=== PATIENT | male | born 1970 | race Caucasian/White ===

== ENCOUNTER 2021-05-25 20:11 | Emergency (ER) | payer OTHER, SELFPAY ==
--- NOTE | 2021-05-25 20:12 | CTR_ITS ---
PROCEDURE INFORMATION: Exam: CT Head Without Contrast Exam date and time: 05/25/2021 8:12 PM Age: 50 years old Clinical indication: Injury or trauma; Blunt trauma (contusions or hematomas); Syncope and collapse; Injury details: Syncope, fall, posterior head lac TECHNIQUE: Imaging protocol: Computed tomography of the head without contrast. Radiation optimization: All CT scans at this facility use at least one of these dose optimization techniques: automated exposure control; mA and/or kV adjustment per patient size (includes targeted exams where dose is matched to clinical indication); or iterative reconstruction. COMPARISON: No relevant prior studies available. RADIATION DOSE METRICS: Total DLP (mGy-cm): 966.15 FINDINGS: Brain: Normal. No hemorrhage. Unremarkable white matter. No mass effect. Cerebral ventricles: No ventriculomegaly. Paranasal sinuses: Mucosal thickening in the ethmoid sinuses. Mastoid air cells: Visualized mastoid air cells are well aerated. Bones/joints: Unremarkable. No acute fracture. Soft tissues: Left occipital scalp swelling. CT/CT head wo con* [id number] IMPRESSION: No acute intracranial injury. Radiation Dose CTDIVOL = (mGy): DLP = 966.15 (mGy-cm)
--- NOTE | 2021-05-25 20:12 | ECG_ITS ---
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 Measurements Intervals [place] Rate: 79 P: 56 CA: 184 QRS: 76 QRSD: 79 T: 65 QT: 352 QTc: 405 Interpretive Statements SINUS RHYTHM POSSIBLE LEFT ATRIAL ENLARGEMENT [-0.1mV P-WAVE IN V1/V2] SEPTAL MYOCARDIAL INFARCTION , OF INDETERMINATE AGE [40+ ms Q WAVE IN V1/V2] No previous ECG available for comparison Electronically Signed On 05-26-2021 4:25:07 BLOCKMAN by Gallo Christina M.D. [id number] f
[2021-05-25 20:22] VITALS: BP 114/67; PULSE 81; RESP 16; TEMP 36.6; O2SAT 98; BMI 31.5
[2021-05-25 20:51] VITALS: BP 143/78; PULSE 80; RESP 14; O2SAT 99
--- NOTE | 2021-05-25 20:53 | XRR_ITS ---
PROCEDURE INFORMATION: Exam: XR Chest Exam date and time: 05/25/2021 8:53 PM Age: 50 years old Clinical indication: Pain; Left-sided; Additional info: L posterior ribs pain TECHNIQUE: Imaging protocol: XR of the chest. Views: 1 view. COMPARISON: No relevant prior studies available. FINDINGS: Lungs: Unremarkable. No consolidation. Pleural spaces: Unremarkable. No pleural effusion. No pneumothorax. Heart/Mediastinum: Unremarkable. No cardiomegaly. Bones/joints: Unremarkable. XR/XR chest 1V portable [id number] IMPRESSION: No acute findings. Radiation Dose CTDIVOL = (mGy): DLP = (mGy-cm)
[2021-05-25 20:59] VITALS: BP 155/90; PULSE 90; RESP 17; O2SAT 100
[2021-05-25] MEDS: sodium chloride 0.9% 1,000 ML 999 ML IV ×2 (21:05→22:05)
[2021-05-25 21:06] LABS: Basophils # 0.1 10^3/uL (0.0-0.1); Basophils % 0.9 %; Eosinophils # 0.3 10^3/uL (0.0-0.8); Eosinophils % 2.4 %; Hemoglobin 12.5 g/dL (11.7-16.6); Lymphocytes # 2.7 10^3/uL (0.8-4.8); Lymphocytes % 21.9 %; Mean Corpuscular HGB Conc 30.5 g/dL (30.0-36.0); Mean Corpuscular Hemoglobin 23.5 pg (28.0-34.0); Mean Corpuscular Volume 77.1 fl (80-94); Mean Platelet Volume 11.8 fL (7.4-10.4); Monocytes # 0.8 10^3/uL (0.2-0.9); Monocytes % 6.8 %; Neutrophils # 8.27 10^3/uL (1.8-7.7); Neutrophils % 67.3 %; Nucleated Red Blood Cells % 0 %; Platelet Count 326 10^3/cmm (130-400); Red Blood Count 5.32 10^6/uL (4.1-5.3); Red Cell Distribution Width 16.2 % (12.1-15.1); White Blood Count 12.3 10^3/uL (4.0-10.0)
[2021-05-25] MEDS: acetaminophen 500 mg Tablet 1000 MG PO (21:15)
--- NOTE | 2021-05-25 21:15 | W.ED.GENADLT ---
HPI - General Adult General: Chief complaint: Neuro Symptoms/Deficit Stated complaint: Passed Out\ Fell Head Injury Time Seen by Provider: 05/25/21 20:47 History of Present Illness: HPI narrative: HPI: [50]yo patient w/ hx rectal bleeding chronic BIBA after an episode of syncope while outside. Patient was outside when he felt light-headed, nauseous and passed out. The incident was witnessed by the patient?s friends who denied LOC today. Patient could not recall the incident but denies any post-ictal confusion, tongue biting or bladder/bowel incontinence. Patient denies any prior hx of syncope in the past. No associated symptoms of chest pain, shortness of breath, palpitations or focal weakness right before the incident. No family hx of sudden cardiac or unexplained . Patient has had rectal bleeding in the last few days. Onset: [1] hr ago Duration: ongoing Location: home Severity: mild Review of Systems Narrative: Constitutional: No fever, no chills. HEENT: No vision changes CV: No chest pain, no palpitations PULM: No productive cough, no dyspnea. GI: No abdominal pain, no N/V/D. : No Dysuria MSKEL: No muscle pain SKIN: No new rashes, no lesions. NEURO: No headache, no focal weakness. +syncope x 1 episode HEME: No visible bruises PSYCH: Normal mood BACK: +L upper thoracic back pain Physical Exam Narrative: EXAM NARRATIVE: Head: +two scalp superficial lacerations without any signs of hematoma or active bleeding Eyes: PERRL, conjunctiva without injection, eyes tracking ENT: Mucous membrane moist NECK: Supple without lymphadenopathy LUNGS: LCTAB, no decreased breath sounds CV: RRR ABDOMEN: Soft, nontender in all quadrants, no guarding or rebound tenderness, no CVA or flank tenderness bilaterally EXTREMITY: Normal ROM SKIN: +two superficial linear scalp lacerations measuring 1cm each NEURO: Mental status: A/Ox3 CN II-XII tested and intact. Sensation intact to sharp/dull differentiation in all extremities. Motor: Normal tone and bulk. No abnormal movements appreciated. No pronator drift. Strength tested and 5/5 in bilateral wrist flexion/extension, elbow flexion/extension, shoulder abduction, straight leg raise, knee flexion/extension, ankle dorsiflexion/plantarflexion. Patient ambulates with a steady gait. Coordination: Finger to nose and heel to kincaid testing intact bilaterally. PSYCH: Cooperative mood and affect BACK: +midscapular T9 midline tenderness to palpation Procedures Laceration Laceration 1: Site: scalp Side (If applicable): left Size (cm): 1 Description: linear Depth: simple, single layer Skin layer closed with: other (dermabond) Laceration 2: Site: scalp Side (If applicable): left Size (cm): 1 Description: linear Depth: simple, single layer Size (cm): other (dermabond) Course Vital Signs: Vital signs: Vital Signs Temperature 98 F 05/25/21 20:22 Pulse Rate 80 05/26/21 00:08 Respiratory Rate 20 H 05/26/21 00:08 Blood Pressure 134/76 05/26/21 00:08 Pulse Oximetry 98 05/26/21 00:08 MDM - General Adult MDM Narrative: Medical decision making narrative: [50]yo patient w/ hx of chronic rectal bleeding presenting to the ED with Syncope. No association with chest pain, dyspnea, palpitations, or focal neurological deficits. HDS Neuro intact. Fingerstick wnl. Given history, exam and workup, presentation not consistent with seizures given a short time course, no postictal state, no seizure activity. Low suspicion for acute neurologic catastrophes to include ICH given lack of trauma, risk factors for bleeding diathesis, or neurogenic causes of syncope. Low suspicion for vascular catastrophes to include PE, thoracic aortic dissection, AAA rupture. Presentation not consistent with acute life threatening arrhythmia, structural heart disease, electrical conduction abnormalities, or ACS. He has 2 superficial scalp laceration that was closed with Dermabond after extensive irrigation. S/p Tdap for superficial laceration. CT brain did not show any signs of any acute brain bleed or trauma. Patient has also left thoracic posterior back pain. No decreased breath sound on the affected side. Chest x-ray did not show any signs of posterior fracture. Workup: EKG, fingerstick, telemetry, CBC, BMP, troponin x 2 Intervention: Serial reevaluation, IVF x 3L, telemetry, PO challenge Findings: EKG: No e/o STEMI/ or heart blocks. No evidence of Brugada?s sign, delta wave, epsilon wave, significantly prolonged QTc, HOCM or malignant arrhythmia. Hemoglobin of 12.3. Rectal exam is negative for any melena or hematochezia. Creatinine of 1.3 today. On reassessment, patient's tells me that patient has been drinking soda water for the last few days. He is refusing to drink any water. His is concerned that patient may have been feeling dehydrated. [10:26] On reassessment, patient denies any syncope or near syncope episodes in the ER. Telemetry without any dysrhythmia. Patient has been able to tolerate PO and ambulate in the ER without issues. Given age, limited to no comorbidities, no family hx of SCD, history more consistent with situational/reflex syncope vs orthostatic/decreased fluid intake, patient is unlikely to experience sudden cardiac decompensation at this time and will NOT benefit from inpatient observation/telemetry at this time. Although the incidence of paroxysmal ventricular tachycardia/VF is very unlikely, I instructed the patient to follow up with a PCP and a Electrophysiology Nurse Practitioner for further evaluation of syncope should the patient need it. He received 3 L fluid with significant improvement in symptoms. Patient tells me that he feels better. Patient has been able to tolerate p.o. in the emergency room without any difficulty. Patient ambulated without feeling any lightheadedness. I have given patient close follow-up with PCP for further evaluation of the left thoracic posterior back pain that still can be an occult fracture that was missed initially on x-ray. I have given patient follow up with our case management manager to be seen by Dr. Wolff for outpatient colonoscopy as last colonoscopy was over 2 years ago. Patient aware of a call from our case management manager to schedule for appointment(s) and verbalizes understanding of the importance of following up. Doubt ACS/PE or other emergent causes of syncope. No suspicion for aortic dissection given no widened mediastinum, 2+ upper extremity pulses, or tearing pain. No suspicion for PE given no pleuritic chest pain, recent immobilization or surgery hemoptysis, or other VTE risk factors. EKG is non-ischemic. XR normal. Rx tylenol PRN back pain Disposition: Discharge. Patient is at baseline at this time. Return precautions expressed and understood in person. Advised follow up with a primary care provider or clinic physician in the next 24-48 hours. Given return instructions for any new or concerning symptoms including chest pain, focal neurological deficits, dyspnea, or any new or concerning findings. Lab Data: Labs: Lab Results 05/25/21 05/25/2121 20:40 20:40 20:40 WBC 12.3 10^3/uL H 10 ^3/uL (4.0-10.0) RBC 5.32 10^6/uL H 10 ^6/uL (4.1-5.3) Hgb 12.5 g/dL g/dL (11.7-16.6) Hct 41.0 % L % (42.0-52.0) MCV 77.1 fl L fl (80-94) MCH 23.5 pg L pg (28.0-34.0) MCHC 30.5 g/dL g/dL (30.0-36.0) RDW 16.2 % H % (12.1-15.1) Plt Count 326 10^3/cmm 10^3 /cmm (130-400) MPV 11.8 fL H fL (7.4-10.4) Neut % (Auto) 67.3 % % Lymph % (Auto) 21.9 % % [place] % (Auto) 6.8 % % Eos % (Auto) 2.4 % % Baso % (Auto) 0.9 % % Neut # (Auto) 8.27 10^3/uL H 10 ^3/uL (1.8-7.7) Lymph # (Auto) 2.7 10^3/uL 10^3/ uL (0.8-4.8) [place] # (Auto) 0.8 10^3/uL 10^3/ uL (0.2-0.9) Eos # (Auto) 0.3 10^3/uL 10^3/ uL (0.0-0.8) Baso # (Auto) 0.1 10^3/uL 10^3/ uL (0.0-0.1) Nucleated RBC % (a uto) 0 % % Nucleated RBCs # 0.0 /100WBC /100W BC Sodium 136 mmol/L mmol/L (136-145) Potassium 3.9 mmol/L mmol/L (3.5-5.1) Chloride 99 mmol/L mmol/L (98-107) Carbon Dioxide 20 mmol/L L mmol/ L (22-29) Anion Gap 20.9 H (5-19) BUN 9 mg/dL mg/dL (6-20) Creatinine 1.3 mg/dL H mg/dL (0.7-1.2) GFR Calculation 58.7 mL/min L mL/ min (90-130) Glucose 166 mg/dL H mg/dL (65-115) Calculated Osmolal ity 284 mOsm/kg L mOs m/kg (285-295) Calcium 8.8 mg/dL mg/dL (8.5-10.5) Total Bilirubin 0.4 mg/dL mg/dL (0.15-1.2) AST 20 U/L U/L (0-40) ALT 10 U/L U/L (0-41) Alkaline Phosphata se 88 IU/L IU/L (40-130) Troponin T Baselin e 10 ng/L ng/L (0-15) Troponin T 120 Min [place] Troponin T Total Protein 6.7 g/dL g/dL (6.6-8.7) Albumin 4.2 g/dL g/dL (3.5-5.2) Globulin 2.5 g/dL g/dL (1.3-4.6) 05/25/21 22:55 WBC RBC Hgb Hct MCV MCH MCHC RDW Plt Count MPV Neut % (Auto) Lymph % (Auto) [place] % (Auto) Eos % (Auto) Baso % (Auto) Neut # (Auto) Lymph # (Auto) [place] # (Auto) Eos # (Auto) Baso # (Auto) Nucleated RBC % (a uto) Nucleated RBCs # Sodium Potassium Chloride Carbon Dioxide Anion Gap BUN Creatinine GFR Calculation Glucose Calculated Osmolal ity Calcium Total Bilirubin AST ALT Alkaline Phosphata se Troponin T Baselin e Troponin T 120 Min [place] 9.30 ng/L ng/L (0-15) Delta Troponin T -0.70 ABS# L ABS# (0-10) Total Protein Albumin Globulin Imaging Data^: Other Imaging: Radiologist's impression: Arlin Worley 50 M 1970 [address] [id number] ReportSigned Patient: Arlin WorleyUnit #: [id number]: 1970Acct#:[id number]/Sex: 50 / MADM Date: 05/25/21Loc: ERRoom/Bed:Attending Dr: Ordering Provider/Ordering MD: Ramírez Hernández MD Date of Service: 05/25/21 Procedure(s): XR chest 1V portable [id number] Accession Number(s): [id number] Report Number: [id number] PROCEDURE INFORMATION: Exam: XR Chest Exam date and time: 05/25/2021 8:53 PM Age: 50 years old Clinical indication: Pain; Left-sided; Additional info: L posterior ribs pain TECHNIQUE: Imaging protocol: XR of the chest. Views: 1 view. COMPARISON: No relevant prior studies available. FINDINGS: Lungs: Unremarkable. No consolidation. Pleural spaces: Unremarkable. No pleural effusion. No pneumothorax. Heart/Mediastinum: Unremarkable. No cardiomegaly. Bones/joints: Unremarkable. XR/XR chest 1V portable [id number] IMPRESSION: No acute findings. Radiation Dose CTDIVOL = (mGy): DLP = (mGy-cm) Dictated By:Heriberto Alcaraz MDSigned By:Heriberto Alcaraz MDSigned Date/Time:05/25/212125DD/ [address] [id number] Scan ReportSigned Patient: Arlin Worley #: [id number]: 1970Acct#:[id number]/Sex: 50 / MADM Date: 05/25/21Loc: ERRoom/Bed:Attending Dr: Ordering Provider/Ordering MD: Maria Isabel Padron MD Date of Service: 05/25/21 Procedure(s): CT head wo con* [id number] Accession Number(s): [id number] Report Number: [id number] PROCEDURE INFORMATION: Exam: CT Head Without Contrast Exam date and time: 05/25/2021 8:12 PM Age: 50 years old Clinical indication: Injury or trauma; Blunt trauma (contusions or hematomas); Syncope and collapse; Injury details: Syncope, fall, posterior head lac TECHNIQUE: Imaging protocol: Computed tomography of the head without contrast. Radiation optimization: All CT scans at this facility use at least one of these dose optimization techniques: automated exposure control; mA and/or kV adjustment per patient size (includes targeted exams where dose is matched to clinical indication); or iterative reconstruction. COMPARISON: No relevant prior studies available. RADIATION DOSE METRICS: Total DLP (mGy-cm): 966.15 FINDINGS: Brain: Normal. No hemorrhage. Unremarkable white matter. No mass effect. Cerebral ventricles: No ventriculomegaly. Paranasal sinuses: Mucosal thickening in the ethmoid sinuses. Mastoid air cells: Visualized mastoid air cells are well aerated. Bones/joints: Unremarkable. No acute fracture. Soft tissues: Left occipital scalp swelling. CT/CT head wo con* [id number] IMPRESSION: No acute intracranial injury. Radiation Dose CTDIVOL = (mGy): DLP = 966.15 (mGy-cm) Dictated By:Heriberto Alcaraz MDSigned By:Heriberto Alcaraz MDSigned Date/Time:05/25/21D/ 11 Discharge Plan Discharge Patient Disposition: Home Clinical Impression: Syncope and collapse, Concussion, Laceration, Back pain Condition: Stable Prescriptions: New lidocaine 5 % adhesive patch,medicated 1 patch topical DAILY PRN (Reason: pain) 10 Days Qty: 10 RF: 0 orphenadrine citrate 100 mg tablet extended release 100 mg PO BID PRN (Reason: pain) 10 Days Qty: 20 RF: 0 Biofreeze (menthol) 5 % gel 1 ea topical BID PRN (Reason: pain) 10 Days Qty: 1 RF: 0 No Action hydrocodone-acetaminophen 5-325 mg tablet 1 tab PO Q4H PRN (Reason: pain) Qty: 18 RF: 0 Discharge Orders: Discharge ED (Routine); Ordered 05/25/21 Ordered By: Ramírez Hernández Discharge Diet: Advance as tolerated Patient Instructions: Syncope (ED), Concussion (ED) Activity Restrictions/Additional Instructions: Your suture(s) need to be removed in 10 to 14 days. Follow-up with your primary care provider and GI doctor for further evaluation of your rectal bleeding. Will refer you to Dr. Goodwin for outpatient colonoscopy. Back to the emergency room having any worsening bleeding, abdominal pain, nausea/vomiting, fever/chills, any new concerning planes. Coding Level of Care Code ED Animal Therapist for Janet Rubio
[2021-05-25 21:30] VITALS: BP 148/94; PULSE 95; RESP 19; O2SAT 98
[2021-05-25 21:38] LABS: Alanine Aminotransferase 10 U/L (0-41); Albumin Level 4.2 g/dL (3.5-5.2); Alkaline Phosphatase 88 IU/L (40-130); Anion Gap 20.9 (5-19); Aspartate Amino Transferase 20 U/L (0-40); Blood Urea Nitrogen 9 mg/dL (6-20); Calcium 8.8 mg/dL (8.5-10.5); Carbon Dioxide 20 mmol/L (22-29); Chloride 99 mmol/L (98-107); Globulin 2.5 g/dL (1.3-4.6); Glomerular Filtration Rate 58.7 mL/min (90-130); Glucose 166 mg/dL (65-115); Osmolality Calculated 284 mOsm/kg (285-295); Potassium 3.9 mmol/L (3.5-5.1); Sodium 136 mmol/L (136-145); Total Bilirubin 0.4 mg/dL (0.15-1.2); Total Protein 6.7 g/dL (6.6-8.7)
[2021-05-25 21:40] LABS: Troponin(5th) Baseline 10 ng/L (0-15)
[2021-05-25 21:46] LABS: Creatinine Clr Calc Pharmacy 81.3906
[2021-05-25 22:00] VITALS: BP 115/80; PULSE 79; RESP 18; O2SAT 99
[2021-05-25] MEDS: tetanus-dipt-pertussis 0.5 mL SDV IM (22:26)
--- NOTE | 2021-05-25 22:53 | ECG_ITS ---
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 Measurements Intervals [place] Rate: 85 P: 46 FL: 184 QRS: 64 QRSD: 88 T: -4 QT: 334 QTc: 399 Interpretive Statements SINUS RHYTHM ABNORMAL QRS-T ANGLE [QRS-T AXIS DIFFERENCE > 60] Compared to ECG 05/25/2021 20:42:16 Myocardial infarct finding no longer present Electronically Signed On 05-26-2021 4:25:26 HOOKER INSPECTOR by Gallo Christina M.D. [id number] f
[2021-05-25 23:00] VITALS: BP 134/76; PULSE 80; RESP 20; O2SAT 98
[2021-05-26 00:08] VITALS: BP 134/76; PULSE 80; RESP 20; O2SAT 98
--- NOTE | 2021-05-31 05:53 | DCPLANNER ---
Addendum entered by Torri Boyle 06/01/21 07:31: national facilities manager was contacted by general surgery and was informed that when clinic called patient to schedule a follow up appointment that patient stated that he wanted to wait and see his primary care physician before he was seen at general surgery. Original Note: national facilities manager had message to schedule a follow up appointment for patient with Dr. Goodwin at [facility] for outpatient colonoscopy. national facilities manager emailed patients information to both [place] and Yulisa to [facility] General Surgery / ENT clinic. Patients information will be printed and reviewed. Clinic will call patient with appointment information.
== END 2021-05-25 23:30 | disposition home or self-care (01) ==
PROVIDERS: Emergency Medicine; Emergency Provider Emergency Medicine
DX: R55 Syncope and collapse (principal); S06.0X0A Concussion without loss of consciousness, initial encounter; W18.30XA Fall on same level, unspecified, initial encounter; S01.01XA Laceration without foreign body of scalp, initial encounter; M54.6 Pain in thoracic spine
CPT/HCPCS: 12001; 70450; 71045; 80053; 84484; 85025; 90471; 90715; 93005; 96360; 96361; 99284; J7030

== ENCOUNTER 2021-05-26 11:17 | Emergency (ER) | payer OTHER, SELFPAY ==
[2021-05-26 11:18] VITALS: BP 175/87; PULSE 75; RESP 15; TEMP 36.7; O2SAT 100; BMI 31.5
--- NOTE | 2021-05-26 11:20 | CTR_ITS ---
PROCEDURE INFORMATION: Exam: CT Chest Without Contrast; Diagnostic Exam date and time: 05/26/2021 11:20 AM Age: 50 years old Clinical indication: Pain; Radiating; Additional info: Eval for L posterior broken bones TECHNIQUE: Imaging protocol: Diagnostic computed tomography of the chest without contrast. Radiation optimization: All CT scans at this facility use at least one of these dose optimization techniques: automated exposure control; mA and/or kV adjustment per patient size (includes targeted exams where dose is matched to clinical indication); or iterative reconstruction. COMPARISON: CR (CHEST, ) 05/25/2021 8:58 PM RADIATION DOSE METRICS: Total DLP (mGy-cm): 1002.14 FINDINGS: Lungs: Unremarkable. No consolidation. No masses. Pleural spaces: Unremarkable. No pneumothorax. No pleural effusion. Heart: Unremarkable. No cardiomegaly. No pericardial effusion. Aorta: Unremarkable. No aortic aneurysm. Lymph nodes: Unremarkable. No enlarged lymph nodes. Bones/joints: There is a nondisplaced linear fracture through the posterolateral aspect of the left 9th rib. There is also compression fracture of the superior endplate of T12 which may be acute. There is mild loss of vertebral height. Degenerative changes are present in the spine with scattered sclerosis and osteophytes. Soft tissues: Unremarkable. CT/CT chest con [id number] IMPRESSION: 1. Nondisplaced linear fracture of the left 9th rib. 2. Compression fracture with mild loss of vertebral height at T12. This is probably acute. 3. No evidence of visceral trauma. Radiation Dose CTDIVOL = (mGy): DLP = 1002.14 (mGy-cm)
--- NOTE | 2021-05-26 11:31 | ED_ITS ---
HPI - General Adult General: Chief complaint: Back Pain/Injury Stated complaint: BACK PAIN, FALL Time Seen by Provider: 05/26/21 11:19 History of Present Illness: HPI narrative: Patient is a 50-year-old male who fell backwards yesterday and was evaluated in the emergency room for syncope who he presents the emergency room for worsening left thoracic back pain after she was unable to fill his medication yesterday. Patient describes a cramping palpable charley horse like pain in the back that is causing him significant distress. Patient has no shortness of breath, cough, abdominal pain, nausea/vomiting, chest pain or any more episodes of lightheadedness/syncope. Patient has an x-ray that was done yesterday negative for any acute rib fractures. Onset: 1 day ago Duration:1 day Location:home Severity:moderate Review of Systems Narrative: Constitutional: No fever, no chills. HEENT: No vision changes CV: No chest pain, no palpitations PULM: no cough, no dyspnea. GI: No abdominal pain, no N/V/D. : No dysuria MSKEL: No muscle pain SKIN: No new rashes, no lesions. NEURO: No headache, no focal weakness. HEME: No visible bruises PSYCH: Normal mood BACK: +L thoracic back pain Physical Exam Narrative: EXAM NARRATIVE: Head: Atraumatic Eyes: PERRL, conjunctiva without injection ENT: Mucous membrane moist NECK: Supple, ROM intact LUNGS: LCTAB, no crackles/rhonchi CV: RRR ABDOMEN: Soft, nontender in all quadrants EXTREMITY: Normal ROM SKIN: No rash or erythema NEURO: Awake and alert, no focal motor deficits PSYCH: Normal mood and affect Course Vital Signs: Vital signs: Vital Signs Temperature 98.0 F 05/26/21 11:18 Pulse Rate 65 05/26/21 12:26 Respiratory Rate 18 05/26/21 12:26 Blood Pressure 151/90 05/26/21 12:26 Pulse Oximetry 99 05/26/21 12:26 MDM - General Adult MDM Narrative: Medical decision making narrative: 50-year-old male presenting to emergency room with persistent left-sided posterior thoracic back pain. On exam, patient has focal tenderness palpation over the left mid scapular T9 through [address] showed T12 vertebral fracture without any significant height loss. Patient was also found to have an isolated ninth rib fracture. Placed in a TLSO brace with close follow-up with orthopedics. Patient was also given incentive spirometer. He has no signs of cauda equina or spinal cord compression. The fracture does not appear to have any components of retropulsion. Rx percocet Q6Hrs x 3 days PRN pain I have given patient follow up with our protective services case worker to be seen by our outpatient Orthopedics spine provider Dr. Bautista for management of vertebral fracture and 9th rib fracture. Patient aware of a call from our protective services case worker to schedule for appointment(s) and verbalizes understanding of the importance of following up. Disposition: Discharge. Patient counseled regarding diagnostic impression, treatment plan. Patient given ED strict return precautions to return for continuation, worsening, or development of new symptoms. Instructed to f/u w/ PCP regarding symptoms today. Patient verbalized understanding. Imaging Data^: Other Imaging: Radiologist's impression: [address] [id number] Scan ReportSigned Patient: Arlin Worley #: [id number]: 1970Acct#:[id number]/Sex: 50 / MADM Date: 05/26/21Loc: ERRoom/Bed:Attending Dr: Ordering Provider/Ordering MD: Ramírez Hernández MD Date of Service: 05/26/21 Procedure(s): CT chest con [id number] Accession Number(s): [id number] Report Number: [id number] PROCEDURE INFORMATION: Exam: CT Chest Without Contrast; Diagnostic Exam date and time: 05/26/2021 11:20 AM Age: 50 years old Clinical indication: Pain; Radiating; Additional info: Eval for L posterior broken bones TECHNIQUE: Imaging protocol: Diagnostic computed tomography of the chest without contrast. Radiation optimization: All CT scans at this facility use at least one of these dose optimization techniques: automated exposure control; mA and/or kV adjustment per patient size (includes targeted exams where dose is matched to clinical indication); or iterative reconstruction. COMPARISON: CR (CHEST, ) 05/25/2021 8:58 PM RADIATION DOSE METRICS: Total DLP (mGy-cm): 1002.14 FINDINGS: Lungs: Unremarkable. No consolidation. No masses. Pleural spaces: Unremarkable. No pneumothorax. No pleural effusion. Heart: Unremarkable. No cardiomegaly. No pericardial effusion. Aorta: Unremarkable. No aortic aneurysm. Lymph nodes: Unremarkable. No enlarged lymph nodes. Bones/joints: There is a nondisplaced linear fracture through the posterolateral aspect of the left 9th rib. There is also compression fracture of the superior endplate of T12 which may be acute. There is mild loss of vertebral height. Degenerative changes are present in the spine with scattered sclerosis and osteophytes. Soft tissues: Unremarkable. CT/CT chest wo con [id number] IMPRESSION: 1. Nondisplaced linear fracture of the left 9th rib. 2. Compression fracture with mild loss of vertebral height at T12. This is probably acute. 3. No evidence of visceral trauma. Radiation Dose CTDIVOL = (mGy): DLP = 1002.14 (mGy-cm) Dictated By:Linda Rader By:Linda Rader Date/Time:05/26/21 1227DD/ 1120 Discharge Plan Discharge Patient Disposition: Home Clinical Impression: Back pain, Compression fracture of T12 vertebra, Fracture of rib Condition: Stable Prescriptions: New Percocet 5-325 mg tablet 1 tab PO Q6H PRN (Reason: pain) 3 Days Qty: 12 RF: 0 No Action acetaminophen 500 mg tablet 500 mg PO Q6H PRN (Reason: pain) 5 Days Qty: 20 RF: 0 lidocaine 5 % adhesive patch,medicated 1 patch topical DAILY PRN (Reason: pain) 10 Days Qty: 10 RF: 0 orphenadrine citrate 100 mg tablet extended release 100 mg PO BID PRN (Reason: pain) 10 Days Qty: 20 RF: 0 Biofreeze (menthol) 5 % gel 1 ea topical BID PRN (Reason: pain) 10 Days Qty: 1 RF: 0 Discharge Orders: Discharge ED (Routine); Ordered 05/26/21 Ordered By: Ramírez Hernández Discharge Diet: Advance as tolerated Discharge Activity: Resume usual activity Patient Instructions: Opioid Safety Activity Restrictions/Additional Instructions: Please come back if your pain worsens, have any fever or chills, or if having new or concerning complaints. Please continue to wear your TLSO brace until you are seen by orthopedic provider. Our protective services case worker will have you follow-up with Dr. Bautista in the next few days. You would be expected to have a phone call with our protective services case worker who will put you on the schedule. Please come back if any weakness in the legs, worsening pain, difficulty breathing, uncontrolled pain, or any new or concerning issues. Coding Level of Care Code ED Hr Operations Advisor for Janet Rubio
[2021-05-26] MEDS: acetaminophen 500 mg Tablet PO (11:42)
[2021-05-26] MEDS: ondansetron 2 mg/ML SDV 2 mL 4 MG IVP (11:46)
[2021-05-26] MEDS: morphine 4 mg/mL SDV 1 mL IVP (11:47)
[2021-05-26] MEDS: ketorolac 30 mg/mL INJ IVP (11:47)
[2021-05-26] MEDS: lidocaine 5% Patch 1 PATCH TOPICAL (12:09)
[2021-05-26 12:26] VITALS: BP 151/90; PULSE 65; RESP 18; O2SAT 99
[2021-05-26] MEDS: HYDROmorphone 1 mg/mL INJ 1 mL 0.5 MG IVP (13:20)
[2021-05-26 14:07] VITALS: PULSE 68; RESP 17; O2SAT 98
[2021-05-26] MEDS: oxyCODONE-APAP 5-325 mg Tablet 1 TAB PO (14:22)
[2021-05-26 14:28] VITALS: BP 156/108; PULSE 88; RESP 18; O2SAT 99
--- NOTE | 2021-05-30 10:58 | DCPLANNER ---
quality assurance test program manager had message to schedule a follow up appointment for patient with ortho. quality assurance test program manager called the ortho clinic, spoke with Conchita, gave clinic patients information. quality assurance test program manager was told that patients information would be printed and reviewed. Clinic will call patient with appointment information.
--- NOTE | 2021-06-13 05:52 | DCPLANNER ---
Patient had a follow up appointment scheduled for 06.02.21 with MANUEL Ferguson at ortho. Patient did attend appointment.
== END 2021-05-26 14:30 | disposition home or self-care (01) ==
PROVIDERS: Emergency Provider Emergency Medicine
DX: M54.9 Dorsalgia, unspecified (principal); S22.089A Unspecified fracture of T11-T12 vertebra, initial encounter for closed fracture; S22.32XA Fracture of one rib, left side, initial encounter for closed fracture; W18.30XA Fall on same level, unspecified, initial encounter
CPT/HCPCS: 71250; 96374; 96375; 99283; J1170; J1885; J2270; J2405

== ENCOUNTER 2021-05-30 13:15 | Emergency (ER) | payer OTHER, SELFPAY ==
[2021-05-30 13:56] VITALS: BP 178/103; PULSE 72; RESP 16; TEMP 36.9; O2SAT 98; BMI 31.5
[2021-05-30 15:33] VITALS: BP 177/102; PULSE 63; RESP 18; O2SAT 99
--- NOTE | 2021-05-30 15:47 | ED_ITS ---
HPI - General Adult General: Chief complaint: General Medical Stated complaint: RIB/BACK PAIN Time Seen by Provider: 05/30/21 15:21 Source: patient Mode of arrival: ambulatory Limitations: no limitations History of Present Illness: HPI narrative: 50-year-old male presents to the ER today for continued rib and back pain. Patient has been seen multiple times in the last 1 week after a fall injury. Patient has a compression fracture of T12 vertebrae and a fractured rib. Patient was sent home with pain meds and referred to Ortho however cannot get into Ortho until . Patient ran out of pain meds last night and has had 10 out of 10 pain today and is unable to relax. Patient reports pain is not worse than last week but it is not improving. He has no new symptoms associated today. Pain Consistency: constant Exacerbating factors: movement Associated symptoms: Deny chest pain, dyspnea, headache(s), nausea, rash, palpitations or vomiting Review of Systems General: Reports: 10 or more systems reviewed and unremarkable except in HPI and below Const: Denies: fever(s), chills or body aches ENMT: Denies: throat pain, nasal discharge or nasal congestion Card: Denies: chest pain or palpitations Resp: Denies: dyspnea, productive cough or wheezing GI: Denies: abdominal pain, nausea, vomiting, diarrhea or constipation Musc: Reports: back pain Skin/Breast: Denies: rash or pruritus Neuro: Denies: headache(s) Physical Exam Const: COMMON NORMALS: average body habitus and patient oriented x3 GENERAL APPEARANCE: cooperative; not comfortable HENMT: COMMON NORMALS: normocephalic, external ears normal and Normal external nose present HEAD & SCALP: normocephalic NOSE: Normal external nose present EXTERNAL EAR: Yes external ears normal Resp: COMMON NORMALS: normal respiratory effort EFFORT & INSPECTION: Yes able to speak in complete sentences Cardio: COMMON NORMALS: regular rate and regular rhythm RATE: regular rate RHYTHM: regular rhythm Back/Pelvis: THORACIC SPINE/UPPER BACK: Yes ROM limited, Yes thoracic spinal tenderness and Yes paraspinal muscle tenderness Extremity: COMMON NORMALS: full ROM Neuro: COMMON NORMALS: patient oriented x3 and moves all extremities Psych: COMMON NORMALS: mental status grossly normal and Normal thought process present THOUGHT PROCESS: Normal thought process present Skin: COMMON NORMALS: no rashes or lesions noted GENERAL SKIN EXAM: no rashes or lesions noted Course ED course: Patient presents for continued pain. Dr. Hernández saw this patient 5 days ago and wrote pain medication which patient has run out of appropriately. Spoke with Dr. Hernández who agrees to refill that at this time. Patient has appointment with Ortho on . Vital Signs: Vital signs: Vital Signs Temperature 98.4 F 05/30/21 13:56 Pulse Rate 63 05/30/21 15:33 Respiratory Rate 18 05/30/21 15:33 Blood Pressure 177/102 05/30/21 15:33 Pulse Oximetry 99 05/30/21 15:33 MDM - General Adult MDM Narrative: Medical decision making narrative: 50-year-old male presents to the ER today for continued pain. Patient has been seen multiple times for a T12 vertebral body fracture in addition to a rib fracture. Patient was given pain meds and has appropriately ran out and has an appointment with his specialist on . Dr. Hernández saw this patient last week and agrees to refill hydrocodone at this time. Patient agrees to keep appointment on with specialist. Return to the ER with new or worsening symptoms. Patient verbalized understanding and is in agreement with this treatment plan. Critical Care Time Critical Care Time: Critical Care Time: No Discharge Plan Discharge Patient Disposition: Home Clinical Impression: Compression fracture of T12 vertebra Qualifiers: Encounter type: subsequent encounter Fracture healing: with routine healing Qualified Code(s): S22.080D - Wedge compression fracture of T11-T12 vertebra, subsequent encounter for fracture with routine healing Fracture of rib Qualifiers: Encounter type: subsequent encounter Rib fracture type: single rib Fracture type: closed Laterality: left Fracture healing: with routine healing Qualified Code(s): S22.32XD - Fracture of one rib, left side, subsequent encounter for fracture with routine healing Condition: Stable Prescriptions: New hydrocodone-acetaminophen 5-325 mg tablet 1 tab PO Q4H PRN (Reason: pain) Qty: 18 RF: 0 No Action lidocaine 5 % adhesive patch,medicated 1 patch topical DAILY PRN (Reason: pain) 10 Days Qty: 10 RF: 0 orphenadrine citrate 100 mg tablet extended release 100 mg PO BID PRN (Reason: pain) 10 Days Qty: 20 RF: 0 Biofreeze (menthol) 5 % gel 1 ea topical BID PRN (Reason: pain) 10 Days Qty: 1 RF: 0 Discharge Orders: Discharge ED (Routine); Ordered 05/30/21 Ordered By: Selina Beltre Discharge Diet: Usual diet Discharge Activity: Limit activity as instructed Patient Instructions: Opioid Safety Activity Restrictions/Additional Instructions: Take medications as prescribed. Keep appointment on and follow-up with specialist. Continue using topical muscle rub and muscle relaxer. Return to the ER with any new or worsening symptoms. Coding Level of Care Code ED Speech Pathology Assistant for Janet Rubio
== END 2021-05-30 15:52 | disposition home or self-care (01) ==
PROVIDERS: Emergency Provider Physician Assistant
DX: S22.080A Wedge compression fracture of T11-T12 vertebra, initial encounter for closed fracture (principal); S22.32XA Fracture of one rib, left side, initial encounter for closed fracture; W19.XXXA Unspecified fall, initial encounter
CPT/HCPCS: 99282

== ENCOUNTER → 2021-06-02 10:42 | Outpatient (BNVA) | payer OTHER, SELFPAY | PROVIDERS: Referring Provider Emergency Medicine; Visit Provider Physician Assistant | DX: S22.080D Wedge compression fracture of T11-T12 vertebra, subsequent encounter for fracture with routine healing (principal); W18.30XD Fall on same level, unspecified, subsequent encounter | CPT/HCPCS: 72070 ==

== ENCOUNTER 2021-06-02 14:04 | Outpatient (CLI) | payer OTHER, SELFPAY | END 2021-06-02 14:05 | disposition home or self-care (01) | LOC: SPT 14:05 | PROVIDERS: Visit Provider Physician Assistant | DX: Z46.89 Encounter for fitting and adjustment of other specified devices (principal); S22.080A Wedge compression fracture of T11-T12 vertebra, initial encounter for closed fracture; X58.XXXA Exposure to other specified factors, initial encounter | CPT/HCPCS: 97760; L0456 ==

== ENCOUNTER 2021-06-21 21:02 | Emergency (ER) | payer OTHER, SELFPAY ==
[2021-06-21 21:12] VITALS: BP 132/83; PULSE 124; RESP 20; TEMP 36.6; O2SAT 98; BMI 33.0
--- NOTE | 2021-06-21 21:26 | W.ED.ABDPA2 ---
HPI - Abdominal Pain General: Chief Complaint: Abdominal Pain Stated Complaint: Lower stomach Pain Time Seen by Provider: 06/21/21 21:05 Source: patient Mode of arrival: ambulatory Limitations: no limitations History of Present Illness: HPI narrative: 50-year-old male states been having left lower quadrant and suprapubic abdominal pain over the last day and a half he states he got much worse tonight pain is currently 9/10 much worse with movement or palpation denies any vomiting or diarrhea denies any fevers improved with rest. Associated Symptoms: Denies chills, dysuria and fever(s) Review of Systems Const: Denies: fever(s), chills, body aches or change in appetite Eyes: Denies: blurry vision or eye discomfort ENMT: Denies: throat pain or dental pain Card: Denies: chest pain Resp: Denies: dyspnea GI: Reports: abdominal pain : Denies: dysuria Musc: Denies: neck pain or back pain Skin/Breast: Denies: rash Neuro: Denies: headache(s) Psych: Denies: depression Jm/Lymph: Denies: easy bruising All/Imm: Denies: urticaria PFSH ED PFSH: Social History Smoking and tobacco status: current every day smoker Physical Exam Const: COMMON NORMALS: no acute distress, patient oriented x3 and healthy appearing HENMT: COMMON NORMALS: normocephalic and atraumatic HEAD & SCALP: normocephalic and atraumatic Eye: COMMON NORMALS: Equal, round and reactive pupils present and EOMs intact bilaterally PUPIL: Yes Equal, round and reactive pupils present Neck/C-Spine: COMMON NORMALS: full ROM and supple Chest: COMMONS NORMALS: normal inspection of the chest and normal palpation of entire chest wall Resp: COMMON NORMALS: normal respiratory effort, No retractions, No use of accessory muscles and clear to auscultation bilaterally AUSCULTATION: clear to auscultation bilaterally Cardio: COMMON NORMALS: regular rate, regular rhythm and No murmurs present (Cardio) RATE: regular rate RHYTHM: regular rhythm GI: COMMON NORMALS: Normal to inspection, nondistended, normoactive bowel sounds present, Soft to palpation and no masses PALPATION: Yes Soft to palpation and Yes Tenderness to palpation present (GI) Details: LLQ Extremity: COMMON NORMALS: normal to inspection and full ROM Neuro: COMMON NORMALS: patient oriented x3, moves all extremities and no focal motor deficits Psych: COMMON NORMALS: mental status grossly normal, Normal thought process present and cooperative THOUGHT PROCESS: Normal thought process present Skin: COMMON NORMALS: no rashes or lesions noted and no wounds GENERAL SKIN EXAM: no rashes or lesions noted Course Vital Signs: Vital signs: Vital Signs Temperature 98.4 F 06/22/21 00:11 Pulse Rate 101 H 06/22/21 00:11 Respiratory Rate 18 06/22/21 00:11 Blood Pressure 140/75 06/22/21 00:11 Pulse Oximetry 97 06/22/21 00:11 MDM - Abdominal Pain MDM Narrative: Medical decision making narrative: Patient presents with abdominal pain is found to have a perforated diverticulitis. Patient's been stable while here patient given IV antibiotics spoke to surgeon at [facility] patient transferred there emergently due to no surgery coverage here at this time. Lab Data: Labs: Lab Results 06/21/21 06/21/21 06/21/21 21:45 21:45 22:30 WBC 21.4 10^3/uL H 10 ^3/uL (4.0-10.0) RBC 5.52 10^6/uL H 10 ^6/uL (4.1-5.3) Hgb 12.9 g/dL g/dL (11.7-16.6) Hct 39.2 % L % (42.0-52.0) MCV 71.0 fl L fl (80-94) MCH 23.4 pg L pg (28.0-34.0) MCHC 32.9 g/dL g/dL (30.0-36.0) RDW 15.6 % H % (12.1-15.1) Plt Count 315 10^3/cmm 10^3 /cmm (130-400) MPV 11.4 fL H fL (7.4-10.4) Neut % (Auto) 85.4 % % Lymph % (Auto) 6.5 % % [place] % (Auto) 7.3 % % Eos % (Auto) 0.2 % % Baso % (Auto) 0.1 % % Neut # (Auto) 18.27 10^3/uL H 1 0^3/uL (1.8-7.7) Lymph # (Auto) 1.4 10^3/uL 10^3/ uL (0.8-4.8) [place] # (Auto) 1.6 10^3/uL H 10^ 3/uL (0.2-0.9) Eos # (Auto) 0.1 10^3/uL 10^3/ uL (0.0-0.8) Baso # (Auto) 0.0 10^3/uL 10^3/ uL (0.0-0.1) Nucleated RBC % (a uto) 0 % % Nucleated RBCs # 0.0 /100WBC /100W BC Sodium 135 mmol/L L mmol /L (136-145) Potassium 3.4 mmol/L L mmol /L (3.5-5.1) Chloride 100 mmol/L mmol/L (98-107) Carbon Dioxide 16 mmol/L L mmol/ L (22-29) Anion Gap 22.4 H (5-19) BUN 6 mg/dL mg/dL (6-20) Creatinine 1.2 mg/dL mg/dL (0.7-1.2) GFR Calculation 64.4 mL/min L mL/ min (90-130) Glucose 133 mg/dL H mg/dL (65-115) Calculated Osmolal ity 280 mOsm/kg L mOs m/kg (285-295) Lactate 1.7 mmol/L mmol/L (0.5-2.2) Calcium 9.0 mg/dL mg/dL (8.5-10.5) Total Bilirubin 0.8 mg/dL mg/dL (0.15-1.2) AST 19 U/L U/L (0-40) ALT 13 U/L U/L (0-41) Alkaline Phosphata se 99 IU/L IU/L (40-130) Total Protein 8.1 g/dL g/dL (6.6-8.7) Albumin 4.5 g/dL g/dL (3.5-5.2) Globulin 3.6 g/dL g/dL (1.3-4.6) Lipase 14 U/L U/L (13-60) Urine Color Urine Appearance Urine pH Ur Specific Gravit y Urine Protein Urine Glucose (UA) Urine Ketones Urine Blood Urine Nitrate Urine Bilirubin Urine Urobilinogen Ur Leukocyte [place] ase Urine RBC Urine WBC Ur Squamous Epith Cells Amorphous Sediment Urine Bacteria Urine Mucus 06/21/21 23:00 WBC RBC Hgb Hct MCV MCH MCHC RDW Plt Count MPV Neut % (Auto) Lymph % (Auto) [place] % (Auto) Eos % (Auto) Baso % (Auto) Neut # (Auto) Lymph # (Auto) [place] # (Auto) Eos # (Auto) Baso # (Auto) Nucleated RBC % (a uto) Nucleated RBCs # Sodium Potassium Chloride Carbon Dioxide Anion Gap BUN Creatinine GFR Calculation Glucose Calculated Osmolal ity Lactate Calcium Total Bilirubin AST ALT Alkaline Phosphata se Total Protein Albumin Globulin Lipase Urine Color Cordelia (Yellow) Urine Appearance Clear (CLEAR) Urine pH 5 (5-7) Ur Specific Gravit y 1.015 (1.005-1.030) Urine Protein 1+ H (Negative) Urine Glucose (UA) Norm (Normal) Urine Ketones 1+ H (Negative) Urine Blood 3+ H (Negative) Urine Nitrate Negative (Negative) Urine Bilirubin 1+ H (Negative) Urine Urobilinogen 1 mg/dL H mg/dL (Negative) Ur Leukocyte Lnida ase Negative (Negative) Urine RBC Rare /hpf /hpf (0-2) Urine WBC 0-4 /hpf H /hpf (0-5) Ur Squamous Epith Cells 0-4 /hpf H /hpf (0-5) Amorphous Sediment Not Reportable Urine Bacteria None /hpf /hpf (NONE) Urine Mucus 3+ /hpf /hpf Imaging Data ^: CT Abd/Pel: Attestation: I personally reviewed and interpreted this imaging study as follows: Radiologist's impression: [address] [address] [address] Scan Report Signed with Addenda Patient: Arlin Worley Unit #: [id number] : 1970 Age/Sex: 50 / M ADM Date: 06/21/21 Loc: ER Room/Bed: Attending Dr: Ordering Provider/Ordering MD: Girish Rodrigues MD Date of Service: 06/21/21 Procedure(s): CT abdomen pelvis w con* [id number] Accession Number(s): [id number] Report Number: [id number]/CT abdomen pelvis w con* [id number] THIS REPORT CONTAINS FINDINGS THAT MAY BE CRITICAL TO PATIENT CARE. The findings were verbally communicated via telephone conference at 11:36 PM WEB SERVICES ARCHITECT on 06/21/2021 with GIRISH RODRIGUES. The findings were acknowledged and understood. Addendum Dictated By: Heriberto Alcaraz MD Addendum Signed By: Heriberto Alcaraz MD Signed Date/Time: 06/21/21 2 338 Addendum Cosigned By: PROCEDURE INFORMATION: Exam: CT Abdomen And Pelvis With Contrast Exam date and time: 06/21/2021 9:26 PM Age: 50 years old Clinical indication: Nausea and vomiting and other: Diarrhea; Abdominal pain; Prior surgery; Surgery type: Gb; Additional info: Abd pain TECHNIQUE: Imaging protocol: Computed tomography of the abdomen and pelvis with contrast. Radiation optimization: All CT scans at this facility use at least one of these dose optimization techniques: automated exposure control; mA and/or kV adjustment per patient size (includes targeted exams where dose is matched to clinical indication); or iterative reconstruction. Contrast material: VISI 320; Contrast volume: 95 ml; Contrast route: INTRAVENOUS (IV); COMPARISON: CT chest con [id number] 05/26/2021 11:31 AM RADIATION DOSE METRICS: Total DLP (mGy-cm): 1797.33 FINDINGS: Liver: There is diffuse low attenuation throughout the liver consistent with fatty infiltration. No masses. Gallbladder and bile ducts: Normal. No calcified stones. No ductal dilation. Pancreas: Normal. No ductal dilation. Spleen: Normal. No splenomegaly. Adrenal glands: Normal. No mass. Kidneys and ureters: Normal. No hydronephrosis. Stomach and bowel: Scattered diverticula throughout the colon with moderate wall thickening and surrounding inflammation along the sigmoid colon consistent with diverticulitis. There is free air throughout the low mid abdomen consistent with a perforation. No focal fluid collection to suggest abscess formation. Multiple fluid-filled loops of small bowel consistent with probable ileus. Appendix: No evidence of appendicitis. Intraperitoneal space: See Stomach and bowel finding. Vasculature: Unremarkable. No abdominal aortic aneurysm. Lymph nodes: Unremarkable. No enlarged lymph nodes. Urinary bladder: Unremarkable as visualized. Reproductive: Unremarkable as visualized. Bones/joints: Unremarkable. No acute fracture. Soft tissues: Unremarkable. CT/CT abdomen pelvis w con* [id number] IMPRESSION: Sigmoid diverticulitis with perforation and local free air but no evidence of abscess. Dictated By: Heriberto Alcaraz MD Signed By: Heriberto Alcaraz MD Signed Date/Time: 06/21/212311 DD/ 25 Critical Care Time Critical Care Time: Critical Care Time: Yes Total Critical Care Time: 35 Attestation: The high probability of a clinically significant, sudden or life threatening deterioration of the patient's [] system(s) required my full and direct attention, intervention and personal management. The critical care time is as shown. This time is in addition to time spent performing any reported procedures but includes the following: [x] Data and vital sign review and interpretation [x] Patient assessment, examination and intervention [x] Documentation [x] Medication orders and management Discharge Plan Discharge Patient Disposition: Xfer Short-Term Hosp Clinical Impression: Perforated diverticulum, Diverticulitis Condition: Stable Coding Level of Care Code ED Fisher Trot Line for Janet Fwd Exam Comprehensive
[2021-06-21] MEDS: ondansetron 2 mg/ML SDV 2 mL 4 MG IVP (21:40)
[2021-06-21 21:41] VITALS: RESP 22
[2021-06-21] MEDS: morphine 4 mg/mL SDV 1 mL IVP (21:41)
[2021-06-21] MEDS: sodium chloride 0.9% 1,000 ML 999 ML IV (21:47)
[2021-06-21] MEDS: iodixanol 320 mg/mL 100mL Btl IV (21:56)
[2021-06-21 22:10] LABS: Basophils % 0.1 %; Eosinophils # 0.1 10^3/uL (0.0-0.8); Eosinophils % 0.2 %; Hematocrit 39.2 % (42.0-52.0); Hemoglobin 12.9 g/dL (11.7-16.6); Lymphocytes # 1.4 10^3/uL (0.8-4.8); Lymphocytes % 6.5 %; Mean Corpuscular HGB Conc 32.9 g/dL (30.0-36.0); Mean Corpuscular Hemoglobin 23.4 pg (28.0-34.0); Mean Platelet Volume 11.4 fL (7.4-10.4); Monocytes # 1.6 10^3/uL (0.2-0.9); Monocytes % 7.3 %; Neutrophils # 18.27 10^3/uL (1.8-7.7); Neutrophils % 85.4 %; Nucleated Red Blood Cells % 0 %; Platelet Count 315 10^3/cmm (130-400); Red Blood Count 5.52 10^6/uL (4.1-5.3); Red Cell Distribution Width 15.6 % (12.1-15.1); White Blood Count 21.4 10^3/uL (4.0-10.0)
[2021-06-21 22:16] LABS: Alanine Aminotransferase 13 U/L (0-41); Albumin Level 4.5 g/dL (3.5-5.2); Alkaline Phosphatase 99 IU/L (40-130); Anion Gap 22.4 (5-19); Aspartate Amino Transferase 19 U/L (0-40); Blood Urea Nitrogen 6 mg/dL (6-20); Carbon Dioxide 16 mmol/L (22-29); Chloride 100 mmol/L (98-107); Globulin 3.6 g/dL (1.3-4.6); Glomerular Filtration Rate 64.4 mL/min (90-130); Glucose 133 mg/dL (65-115); Lipase 14 U/L (13-60); Osmolality Calculated 280 mOsm/kg (285-295); Potassium 3.4 mmol/L (3.5-5.1); Sodium 135 mmol/L (136-145); Total Bilirubin 0.8 mg/dL (0.15-1.2); Total Protein 8.1 g/dL (6.6-8.7)
[2021-06-21 22:32] VITALS: RESP 20
[2021-06-21] MEDS: HYDROmorphone 1 mg/mL INJ 1 mL IVP (22:32)
[2021-06-21 22:34] VITALS: BP 129/92; PULSE 89; RESP 20; TEMP 36.9; O2SAT 99
[2021-06-21 23:02] LABS: Lactate (Lactic Acid level) 1.7 mmol/L (0.5-2.2)
--- NOTE | 2021-06-21 23:07 | PC.NURSE ---
patient provided urine sample and sent to lab. patient in no bovious distress. patient on quality assurance monitor body. Patient lying in bed at his time . Call light within reach. family at bedside.
[2021-06-21 23:30] LABS: Add Urine Microscopic? YES; Bilirubin Urine 1+ (Negative); Blood Urine 3+ (Negative); Glucose Urine UA Norm (Normal); Ketones Urine 1+ (Negative); Leukocyte Esterase Urine Negative (Negative); Nitrate Urine Negative (Negative); Protein Urine 1+ (Negative); RBC Urine RARE /hpf (0-2); Specific Gravity, Urine 1.015 (1.005-1.030); Urine Appearance Clear (CLEAR); Urine Color Amber (Yellow); Urobilinogen Urine 1 mg/dL (Negative); WBC Urine 0-4 /hpf (0-5); pH Urine 5 (5-7)
[2021-06-21 23:31] LABS: Add Urine Culture? No; Mucus Urine 3+ /hpf; Squamous Epithelial Cell Urine 0-4 /hpf (0-5)
[2021-06-22] MEDS: piperacillin-tazobactam 3.375 GM in sodium chloride 0.9% (plus) 50 ML IV (00:08)
[2021-06-22 00:11] VITALS: BP 140/75; PULSE 101; RESP 18; TEMP 36.9; O2SAT 97
[2021-06-22 00:58] VITALS: RESP 18; O2SAT 98
[2021-06-22] MEDS: HYDROmorphone 1 mg/mL INJ 1 mL IVP (00:58)
[2021-06-22 00:59] VITALS: BP 125/90; PULSE 101; RESP 18; TEMP 36.9; O2SAT 98
[2021-06-22 01:32] VITALS: BP 125/90; PULSE 105; RESP 18; TEMP 36.8; O2SAT 98
== END 2021-06-22 01:36 | disposition short-term general hospital (02) ==
PROVIDERS: Emergency Provider Emergency Medicine
DX: K57.20 Diverticulitis of large intestine with perforation and abscess without bleeding (principal); F17.200 Nicotine dependence, unspecified, uncomplicated
CPT/HCPCS: 74177; 80053; 81001; 83605; 83690; 85025; 96365; 96375; 96376; 99285; J1170; J2270; J2405; J2543; J7030; Q9967

== ENCOUNTER 2021-07-13 11:41 | Outpatient (CLI) | payer OTHER, SELFPAY ==
--- NOTE | 2021-07-13 11:45 | MR_ITS ---
WS: [id number] MRI THORACIC SPINE WITHOUT CONTRAST TECHNIQUE: Sagittal T1, T2 and STIR imaging. Axial T2 imaging. Noncontrast imaging obtained. CLINICAL INFORMATION: S22.080D - Wedge compression fracture of T11-T12 vertebra... COMPARISON: June 02, 2021 FINDINGS: Mild thoracic curve. Mild thoracic kyphosis. No high-grade central canal stenosis. Compression fractu re superior endplate L1. Loss of approximately 20% vertebral body height superior endplate with edema . Findings consistent with acute compression. No other acute appearing compression fractures. Tiny central disc protrusions more prominent at T5-6, right T8-9, right T9-T10. Moderate facet arthro durga lower thoracic spine. Mild left bony foraminal narrowing T9-T10, bilateral T10-11, and bilatera l T11-T12 more prominent on the left. Normal caliber thoracic aorta. Adrenal glands are normal. MR/MR thoracic spin wo con* [id number] IMPRESSION: 1. Acute compression fracture superior endplate T12 with loss of approximately 20% vertebral body height. No retropulsion. Edema in the superior endplate. 2. Small disc protrusions more prominent at T5-6, right T8-9, and right T9-T10 . 3. No significant central canal stenosis. 4. Mild bony foraminal narrowing worse at left T9-T10, bilateral T10-11, and b ilateral T11-T12 more prominent on the left. 5. Moderate facet arthropathy lower thoracic spine.
== END 2021-07-13 11:42 | disposition home or self-care (01) ==
LOC: RADSHAW 11:45
PROVIDERS: Visit Provider Physician Assistant
DX: S22.080D Wedge compression fracture of T11-T12 vertebra, subsequent encounter for fracture with routine healing (principal); X58.XXXD Exposure to other specified factors, subsequent encounter; M51.24 Other intervertebral disc displacement, thoracic region; M47.814 Spondylosis without myelopathy or radiculopathy, thoracic region
CPT/HCPCS: 72146

== ENCOUNTER → 2021-07-21 14:40 | Outpatient (BNVA) | payer OTHER, SELFPAY | PROVIDERS: Visit Provider Physician Assistant | DX: Z01.812 Encounter for preprocedural laboratory examination (principal); Z20.822 Contact with and (suspected) exposure to COVID-19; S32.000A Wedge compression fracture of unspecified lumbar vertebra, initial encounter for closed fracture; X58.XXXA Exposure to other specified factors, initial encounter | CPT/HCPCS: 87635 ==

== ENCOUNTER → 2021-07-26 15:23 | Outpatient (BNVA) | payer OTHER, SELFPAY | PROVIDERS: Visit Provider Orthopaedic Surgery | DX: S32.000A Wedge compression fracture of unspecified lumbar vertebra, initial encounter for closed fracture (principal); X58.XXXA Exposure to other specified factors, initial encounter; Z20.822 Contact with and (suspected) exposure to COVID-19 | CPT/HCPCS: 87635 ==

== ENCOUNTER 2021-07-29 09:32 | Day surgery (SDC) | payer OTHER, SELFPAY ==
[2021-07-26 13:39] VITALS: BMI 30.8
[2021-07-29] VITALS (10 sets, daily range): BP systolic 125–165; BP diastolic 81–110; PULSE 53–75; RESP 14–19; TEMP 36.1–36.4; O2SAT 96–100
--- NOTE | 2021-07-29 | SCC_ITS ---
Procedure done: 1. L1 Kyphoplasty 2. L1 spine metastasis radiofrequency ablation 51.6 seconds of fluoroscopic guidance, for a cumulative dose of 31.61 mGy, was provided to Dr. Bautista by the radiology department. C-arm images of the lumbar spine were saved for the patient's permanent record. [facility]
--- NOTE | 2021-07-29 09:41 | SC_ITS ---
WS: [id number] INTRAOPERATIVE TECHNIQUE: 4 Spot fluoroscopic images for intraoperative purposes. FLUOROSCOPY TIME: 52.9 seconds CLINICAL INFORMATION: kyphoplasty L1 COMPARISON: MRI July 13, 2021 FINDINGS: Methacrylate visualized in the L1 vertebral body if counting performed from the craniocervical juncti on with prior MRI thoracic imaging as reference. No significant retropulsion. Mild compression of th e superior endplate unchanged compared to the prior MRI. SC/C-arm FL for Kyphoplasty IMPRESSION: Images obtained for intraoperative purposes.
--- NOTE | 2021-07-29 10:04 | ANES.PREANE2 ---
Pre-Anesthetic Assessment Height/Weight: Height 1.78 m Weight 97.522 kg Preop Diagnosis: L1 Compression Fracture Operation Date: 07/29/21 10:55 Proposed Procedures p T12 Kyphoplasty 26649/s22.000a(Not Applicable) - Jan Bautista, Familial anesthetic complications: Blood pressure spikes per patient. Morphine does not work per patient Was Beta Violeta taken within 24 hours: N/A Was Clonidine taken within 24 hours: N/A Last intake: 07/28/21 Social Alcohol and Tobacco 30 pack years Exam alert, oriented x 3, clear to auscultation bilaterally and regular rate & rhythm Airway Submandibular: within normal limits Cervical ROM: within normal limits Mallampati: Class I Dentition: false Pulmonary None reported CV/HEM None reported (Denies HTN, CAD) EKG 05/22 SINUS RHYTHM ABNORMAL QRS-T ANGLE? [QRS-T AXIS DIFFERENCE > 60] Compared to ECG 05/25/2021 20:42:16 Myocardial infarct finding no longer present Electronically Signed On 05-26-2021 4:25:26 NUT PROCESSING SUPERVISOR by Gallo Christina M.D. [email or web address] None reported Hepatic Denies liver disease GI Hx of perforated diverticulum Metabolic Denies DM, thyroid disease Musc/skel Osteoarthritis/DJD Neuropsych T12 fracture Denies seizure or stroke hx Hx of syncope from dehydration 05/2021 without intra cranial bleed Anesthetic Plan ASA status: 2 Anesthesia: Anesthesia Evaluation and General Other: We discussed risk of blindness, stroke, NC, , ICU admission with breathing tube, peripheral nerve injury, corneal abrasion, oral/airway injury, positioning injury, life threatening allergic reaction, sore throat, post operative pain, PONV, and intraoperative recall. All questioned answered. Plan discussed. Patient agrees to proceed. Risk of > 500 ml blood loss (7ml/kg in children): No Other Pertinent Information Prefers general Medications/Allergies Home Medications Medication Instructions Recorded Confirmed Last Taken Type TLSO Brace #1 ea 06/02/21 07/21/21 Unknown Rx Lactobacills gasseri-Bifidobac cap PO 07/21/21 07/21/21 1 Day Ago History bifidum,longum 1.5 billion cell ~07/28/21 capsule (Probiotic Colon Support) docusate sodium 100 mg capsule 100 mg PO DAILY 07/21/21 07/29/21 1 Day Ago History ~07/28/21 oxycodone 5 mg capsule 5 mg PO Q6H PRN 07/21/21 07/29/21 1 Day Ago History ~07/28/21 simethicone 125 mg capsule (Gas 125 mg PO DAILY PRN 07/21/21 07/29/21 1 Day Ago History Relief (simethicone)) ~07/28/21 Allergies Allergy/AdvReac Type Severity Reaction Status Date / Time No Known Allergies Allergy Verified 07/29/21 10:03 [facility] Anesthesia Medical History Diverticulitis Fracture of T12 vertebra Perforated diverticulum Family History Grandmother Diabetes Grandfather Cancer Sister Multiple sclerosis Father Degeneration of spine Social History Smoking and tobacco status: current every day smoker Quit status (tobacco): not considering quitting Second hand smoke exposure: Yes Alcohol intake: former Data Anesthesia Cardiac Studies: No Data to Display
--- NOTE | 2021-07-29 10:45 | W.PM.OPSUD ---
Surgery/Procedure H&P Update DATE OF PROCEDURE: July 29, 2021 DATE H&P PERFORMED: 07/21/21 CHANGES TO PREVIOUS DOCUMENTATION: H+P reviewed no changes PREOP DIAGNOSIS: L1 Compression Fracture PLANNED PROCEDURE: Operation Date: 07/29/21 10:55 Proposed Procedures p T12 Kyphoplasty 20843/s22.000a(Not Applicable) - Jan Bautista DO
[2021-07-29] MEDS: sodium chloride 0.9% 1,000 ML 30 ML IV (11:01)
[2021-07-29] MEDS: iohexol 300 mg/mL 50 mL Btl (OR ONLY) XX (12:00)
--- NOTE | 2021-07-29 12:26 | PM.OP ---
Operative Report Date of procedure: July 29, 2021 Pre-op diagnosis: Preop Diagnosis L1 pathologic wedge Compression Fracture Post-op diagnosis: same Procedure done: 1. L1 Kyphoplasty 2. L1 spine metastasis radiofrequency ablation Pathology: L1 bone biopsy sent Surgeon: Jan Bautista Estimated blood loss: 5 Brief History: Family history of colon cancer compression at the age of 50 with minimal trauma. Concern for metastatic lesion. Procedure: 1. L1 Kyphoplasty 2. L1 spine metastasis radiofrequency ablation Patient is brought to the operative suite after undergoing anesthesia was placed in the prone position. All areas impingement well-padded. AP lateral fluoroscopy were set up in order to facilitate placing the instruments with biplanar fluoroscopy. Skin incision made at the outer edge of the left pedicle. Starting awl was inserted once the tube was inserted into the vertebral body using AP and lateral fluoroscopy a biopsy tube was inserted a conical portion of bone was then taken out and sent for biopsy. Next the drill was passed in this left pedicle. Next attention was brought to the right pedicle a stab incision is made on the outer edge of the right pedicle the awl was inserted and then drilled. The osteocool radiofrequency probes were inserted these were 50 mm ossicle radiofrequency ablation probes and the ablation was performed for 11-1/2 minutes. Next attention was to performing the kyphoplasty. Balloons were inserted into the right and left side balloons were inflated and deflated. And then bone cement was inserted into the vertebral body approximately 6 cc of bone cement were inserted AP lateral fluoroscopy ensured that the cement was in the prone position. Wounds were irrigated and closed with a nylon stitch and sterile dressings were applied. Patient was then transferred to the PACU in stable condition.
--- NOTE | 2021-07-29 12:30 | P.PCN_ITS ---
PACU note Narrative: VSS, Good respiratory effort, report to DIETETIC AIDE Exam: awake
--- NOTE | 2021-07-29 12:30 | PM.PACU ---
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
[2021-07-29] MEDS: oxyCODONE-APAP 5-325 mg Tablet 1 TAB PO (13:10)
[2021-07-29] MEDS: HYDROmorphone 1 mg/mL INJ 1 mL 0.5 MG IVP (13:30)
--- NOTE | 2021-07-29 14:32 | ANE.PACU2 ---
Documented by User: Vinny Dubois CRNA 07/29/21 14:33 Inpatient post-anesthesia follow up: Airway intact: Yes Vital signs: Temperature 97 F Pulse Rate 53 Respiratory Rate 18 Blood Pressure 130/81 Pulse Oximetry 98 Oxygen Delivery Me thod Room Air Oxygen Flow Rate 2 Fraction of Inspir ed Oxygen Hydration adequate: Yes Nausea and vomiting: No Pain level: 1 Mental status: Baseline
--- NOTE | 2021-07-29 15:58 | P.ANESPOST_ITS ---
Inpatient post-anesthesia follow up: Airway intact: Yes Vital signs: Temperature 97 F Pulse Rate 53 Respiratory Rate 18 Blood Pressure 130/81 Pulse Oximetry 98 Oxygen Delivery Me thod Room Air Oxygen Flow Rate 2 Fraction of Inspir ed Oxygen Hydration adequate: Yes Nausea and vomiting: No Pain level: Other (Dominik barry feels comfortable with being discharged. ) Mental status: Baseline
== END 2021-07-29 14:13 | disposition home or self-care (01) ==
PROVIDERS: PCP Family Medicine; Visit Provider Orthopaedic Surgery
PROC: (CPT 22514; principal; 2021-07-29 10:55)
DX: S32.010A Wedge compression fracture of first lumbar vertebra, initial encounter for closed fracture (principal); X58.XXXA Exposure to other specified factors, initial encounter; F17.210 Nicotine dependence, cigarettes, uncomplicated
CPT/HCPCS: 22514; 76000; 88307; 88311; J0690; J1100; J1170; J2405; J2704; J2710; J3010; J3490; J7030

== ENCOUNTER → 2021-10-20 10:33 | Outpatient (BNVA) | payer OTHER, SELFPAY | PROVIDERS: PCP Family Medicine; Visit Provider Family Medicine | DX: R10.13 Epigastric pain (principal); Z76.89 Persons encountering health services in other specified circumstances; R35.1 Nocturia; Z13.6 Encounter for screening for cardiovascular disorders; Z68.32 Body mass index [BMI] 32.0-32.9, adult | CPT/HCPCS: 85025 ==

== ENCOUNTER → 2021-10-26 11:25 | Outpatient (BNVA) | payer OTHER, SELFPAY | PROVIDERS: PCP Family Medicine; Visit Provider Family Medicine | DX: Z13.6 Encounter for screening for cardiovascular disorders (principal); R35.1 Nocturia; Z76.89 Persons encountering health services in other specified circumstances | CPT/HCPCS: 80053; 80061; 84153; 85025 ==

== ENCOUNTER 2022-01-25 05:51 | Day surgery (SDC) | payer OTHER, SELFPAY ==
[2022-01-23 09:46] VITALS: BMI 32.3
[2022-01-25 06:14] VITALS: BP 139/87; PULSE 65; RESP 16; TEMP 36.3; O2SAT 97
[2022-01-25] MEDS: sodium chloride 0.9% 1,000 ML 30 ML IV (06:27)
--- NOTE | 2022-01-25 07:01 | ANES.PREANE2 ---
Pre-Anesthetic Assessment Height/Weight: Height 1.78 m Weight 102.058 kg Temp Pulse Resp BP Pulse Ox O2 Del Method 97.4 F L 65 16 139/87 97 01/25/22 06:14 01/25/22 06:14 01/25/22 06:14 01/25/22 06:14 01/25/22 06:14 01/25/22 06:14 Preop Diagnosis: diagnostic Operation Date: 01/25/22 07:30 Proposed Procedures p Colonoscopy 88663/K57.80(Not Applicable) - Vinicius Limon MD Familial anesthetic complications: none Was Beta Violeta taken within 24 hours: N/A Was Clonidine taken within 24 hours: N/A Last intake: Intake Last Liquid Date 01/25/22 Last Liquid Time 05:10 Last Solid Date 01/23/22 Last Solid Time 22:30 Social Tobacco and No alcohol Exam alert, oriented x 3, clear to auscultation bilaterally and regular rate & rhythm Airway Submandibular: within normal limits Cervical ROM: within normal limits Mallampati: Class II Dentition: false Pulmonary Chronic Obstructive Pulmonary Disease CV/HEM Hypertension None reported Hepatic None reported GI Gastroesophageal Reflux Disease Metabolic None reported Musc/skel None reported Neuropsych None reported Anesthetic Plan ASA status: 3 Anesthesia: Anesthesia Evaluation and MAC Other: I discussed with the patient risks, goals, and benefits of MAC and general anesthesia. We discussed spectrum of MAC anesthesia including conversion to general as well as possibility of recall of intraoperative stimuli including discomfort/pain. Patient agrees to proceed with MAC. Medications/Allergies Home Medications Medication Instructions Recorded Confirmed Last Taken Type cyclobenzaprine 10 mg tablet 10 mg PO TID PRN muscle spasm #30 09/27/21 01/25/22 Unknown Rx tabs oxycodone 5 mg tablet 5 mg PO BID PRN Pain 10/20/21 01/25/22 Unknown History atorvastatin 40 mg tablet 40 mg PO DAILY #90 tabs 11/17/21 01/25/22 01/23/22 Rx lisinopril 20 mg tablet 20 mg PO DAILY #90 tabs 11/17/21 01/25/22 01/24/22 Rx pantoprazole 40 mg tablet,delayed 40 mg PO DAILY 01/23/22 01/25/22 01/24/22 History release Allergies Allergy/AdvReac Type Severity Reaction Status Date / Time No Known Allergies Allergy Verified 01/25/22 06:13 Current Medications Generic Name Dose Route Start Last Admin Trade Name Freq PRN Reason Stop Dose Admin Sodium Chloride 1,000 mls @ 30 mls/hr 01/25/22 06:00 01/25/22 06:27 Sodium Chloride 0.9% IV 01/26/22 05:59 30 mls/hr .Q24H SOHAN Administration PFSH Anesthesia Medical History Diverticulitis Fracture of T12 vertebra Perforated diverticulum Surgical History History of cholecystectomy History of spinal surgery Family History Grandmother Diabetes Grandfather Cancer Sister Multiple sclerosis Father Degeneration of spine Social History Smoking and tobacco status: current every day smoker Quit status (tobacco): not considering quitting Second hand smoke exposure: Yes Alcohol intake: former Data Anesthesia Cardiac Studies: No Data to Display
--- NOTE | 2022-01-25 07:26 | W.PM.OPSFHP ---
Same Day Surgery H&P Indication for Procedure/HPI DATE OF PROCEDURE: January 25, 2022 CHIEF COMPLAINT/INDICATIONFOR SURGICAL PROCEDURE: Colonoscopy PREOP DIAGNOSIS: diagnostic PLANNED PROCEDURE: Operation Date: 01/25/22 07:30 Proposed Procedures p Colonoscopy 37003/K57.80(Not Applicable) - Vinicius Limon MD Medications/Allergies* Home Medications Medication Instructions Recorded Confirmed Type oxycodone 5 mg tablet 5 mg PO BID PRN Pain 10/20/21 01/25/22 History pantoprazole 40 mg tablet,delayed 40 mg PO DAILY 01/23/22 01/25/22 History release Allergies/Adverse Reactions Allergy/AdvReac Type Severity Reaction Status Date / Time No Known Allergies Allergy Verified 01/25/22 06:13 Current Medications: Generic Name Dose Route Start Last Admin Trade Name Freq PRN Reason Stop Dose Admin Sodium Chloride 1,000 mls @ 30 mls/hr 01/25/22 06:00 01/25/22 06:27 Sodium Chloride 0.9% IV 01/26/22 05:59 30 mls/hr .Q24H SOHAN Administration Pertinent History/Comorbid Conditions* Medical History (Updated 11/18/21 @ 07:25 by Inessa Coats DO) Diverticulitis Fracture of T12 vertebra Perforated diverticulum Surgical History (Updated 11/15/21 @ 08:21 by Vinicius Limon MD) History of cholecystectomy History of spinal surgery Family History (Updated 07/21/21 @ 13:37 by Lydia Wright LPN) Diabetes Grandmother Degeneration of spine Father Multiple sclerosis Sister Cancer Grandfather Social History Smoking and tobacco status: current every day smoker Quit status (tobacco): not considering quitting Second hand smoke exposure: Yes Alcohol intake: former Pertinent Exam Findings alert, oriented x 3 and regular rate & rhythm Recommendations Surgery/Procedure today Coding Level of Care Code Acute Artificial Flowers Dyer for Janet Rubio
[2022-01-25 07:42] VITALS: BP 105/70; PULSE 70; RESP 16; TEMP 36.1; O2SAT 94
[2022-01-25 07:59] VITALS: BP 119/81; PULSE 62; RESP 16; TEMP 36.5; O2SAT 98
--- NOTE | 2022-01-25 11:01 | ANE.PACU2 ---
Inpatient post-anesthesia follow up: Airway intact: Yes Vital signs: Temperature 97.7 F Pulse Rate 62 Respiratory Rate 16 Blood Pressure 119/81 Pulse Oximetry 98 Oxygen Delivery Me thod Room Air Oxygen Flow Rate 2 Fraction of Inspir ed Oxygen Hydration adequate: Yes Nausea and vomiting: No Pain level: 2 Mental status: Baseline
== END 2022-01-25 08:25 | disposition home or self-care (01) ==
PROVIDERS: PCP Family Medicine; Visit Provider Surgery
PROC: 0DJD8ZZ Inspection of Lower Intestinal Tract, Via Natural or Artificial Opening Endoscopic (ICD-10-PCS; CPT 45378; principal; 2022-01-25 07:30)
DX: K57.30 Diverticulosis of large intestine without perforation or abscess without bleeding (principal); K64.8 Other hemorrhoids; J44.9 Chronic obstructive pulmonary disease, unspecified; I10 Essential (primary) hypertension; K21.9 Gastro-esophageal reflux disease without esophagitis; F17.210 Nicotine dependence, cigarettes, uncomplicated
CPT/HCPCS: 45378; J2704; J7030

== ENCOUNTER → 2022-02-09 11:39 | Outpatient (BNVA) | payer OTHER, SELFPAY | PROVIDERS: PCP Family Medicine; Visit Provider Family Medicine | DX: E78.5 Hyperlipidemia, unspecified (principal); R55 Syncope and collapse; I10 Essential (primary) hypertension; F17.219 Nicotine dependence, cigarettes, with unspecified nicotine-induced disorders | CPT/HCPCS: 80053; 80061 ==

== ENCOUNTER 2022-04-19 07:33 | Outpatient (CLI) | payer OTHER, SELFPAY ==
--- NOTE | 2022-04-19 07:45 | USCV_ITS ---
WintonArlin rodriguez Age: 51 Gender: M : 1970 Exam Date: 04/19/2022 07:54 Ordering Phys: Inessa Coats DO Technologist: CT Exam Location: [facility] [place]_ Indication: syncope Risk Factors: Previous Vascular Surgery: Right Brachial BP: / Left Brachial BP: / Right Left Velocity (cm/s) Spectral Plaque Velocity (cm/s) Spectral Plaque Syst/Diast Broadening Syst/Diast Broadening 99.20/ 27.60 Prox CCA 90.40 / 28.70 104.70/28.70 Mid CCA 103.00/ 31.20 97.00/ 27.05 Distal CCA 96.70 / 32.20 71.70/ 32.00 Prox ICA 75.90 / 33.30 94.10/ 44.50 Mid ICA 27.00 / 53.50 74.90/ 37.50 Distal ICA 56.20 / 24.80 108.10 ECA 90.50 0.95 ICA/CCA 0.74 Antegrade Vertebral Antegrade 59.20/ 30.60 cm/s 46.70/ 24.30 cm/s Tri Subclavian Tri 85.80 90.90 CONCLUSIONS Right ICA stenosis <50%. Left ICA stenosis <50%. Normal antegrade Doppler flow noted in the right vertebral artery. Normal antegrade Doppler flow noted in the left vertebral artery. Edenilson Allen MD (Electronically Signed) Final Date: 19 April 2022 10:04 S
--- NOTE | 2022-04-19 08:21 | USCV_ITS ---
Arlin Worley Age: 51 Gender: M : 1970 Exam Date: 04/19/2022 08:29 Ordering Phys: Inessa Coats DO Technologist: QUIQUE Exam Location: [facility] – [place] Indication: SYNCOPE BP: 146 / 92 HR: 62 Rhythm: Sinus Technical Quality: Adequate MEASUREMENTS (Male / Female) Normal Values 2D ECHO LVOT Diameter 2.0 cm LV Ejection Fraction MOD 2C 65.6 % LV Ejection Fraction 2C AL 66.5 % LA Diameter 2.6 cm LA Width 3.6 cm LA Height 4.8 cm RA Width 3.7 cm RA Height 4.5 cm Aorta at Sinotubular Diameter 2.4 cm IVC Diameter 1.6 cm M-MODE Aortic Annulus Diameter 3.6 cm LA Ao Ratio MM 0.5 MV E Point Septal Separation 0.3 cm DOPPLER AV Peak Velocity 168.3 cm/s LVOT Peak Velocity 117.0 cm/s AV Area Cont Eq vti 2.5 cm squared AV Area Cont Eq pk 2.2 cm squared MV Peak Velocity 87.0 cm/s MV Area PHT 3.3 cm squared Mitral E to A Ratio 0.8 MV E' Velocity 41.5 cm/s Mitral E to MV E' Ratio 9.0 Mitral E to LV E' Lateral Ratio 7.7 Mitral E to LV E' Septal Ratio 11.0 TR Peak Velocity 242.6 cm/s TR Peak Gradient 23.5 mmHg TR Mean Velocity 188.3 cm/s TR Mean Gradient 14.9 mmHg TR Velocity Time Integral 61.2 cm TV Peak E Velocity 49.0 cm/s Right Atrial Pressure 3.0 mmHg Pulmonary Artery Systolic Pressu 26.5 mmHg PV Peak Velocity 141.0 cm/s RV Acceleration Time 0.1 s RV Ejection Time 0.3 s RV AcT/ET 0.4 FINDINGS Left Ventricle Left ventricle is normal in size. LV systolic function is normal with EF of 55 to 60%. No regional wall motion abnormalities are seen. Grade 1 diastolic dysfunction Right Ventricle Normal in size and function Right Atrium Normal in size Left Atrium Normal in size Mitral Valve Structurally normal mitral valve. Mild mitral regurgitation. Aortic Valve Structurally normal aortic valve. No significant stenosis or regurgitation is seen. Tricuspid Valve Trace tricuspid regurgitation. Insufficient TR jet to evaluate RVSP Pulmonic Valve Not well-visualized Pericardium Normal Aorta Normal in size IVC Appears to be normal. CONCLUSIONS LV systolic function is normal with EF 55 to 60%. Grade 1 diastolic dysfunction Mild mitral regurgitation trace tricuspid regurgitation. No comparison studies are available Gallo Christina MD (Electronically Signed) Final Date: 20 April 2022 20:10 S
== END 2022-04-19 07:34 | disposition home or self-care (01) ==
PROVIDERS: PCP Family Medicine; Visit Provider Family Medicine
DX: R55 Syncope and collapse (principal); E78.5 Hyperlipidemia, unspecified; I08.1 Rheumatic disorders of both mitral and tricuspid valves; I65.23 Occlusion and stenosis of bilateral carotid arteries
CPT/HCPCS: 93306; 93880

== ENCOUNTER 2022-06-22 18:34 | Emergency (ER) | payer OTHER, SELFPAY ==
--- NOTE | 2022-06-22 18:36 | XRR_ITS ---
PROCEDURE INFORMATION: Exam: XR Left Shoulder Exam date and time: 06/22/2022 6:51 PM Age: 51 years old Clinical indication: Pain; Shoulder; Left; Additional info: Fall TECHNIQUE: Imaging protocol: Radiologic exam of the Left shoulder. Views: 2 or more views. COMPARISON: CT chest wo con [id number] 05/26/2021 11:31 AM FINDINGS: Bones/joints: Left humeral neck mildly displaced impacted fracture. Soft tissues: Normal. XR/XR shoulder LT min 2V* [id number] IMPRESSION: Left humeral neck mildly displaced impacted fracture.
[2022-06-22 18:41] VITALS: BP 129/85; PULSE 71; RESP 20; TEMP 36; O2SAT 99; BMI 31.7
--- NOTE | 2022-06-22 18:46 | ED_ITS ---
HPI - Extremity Problem General: Chief complaint: Extremity Injury, Upper Stated complaint: fall, left shoulder injury Time Seen by Provider: 06/22/22 18:40 History of Present Illness: Patient is in today for left shoulder pain. He reports that he tripped and fell over a log in the snow today. He reports that his arm has been extremely painful since that time. He reports that he is really unable to move his arm. He denies any numbness or tingling of the arm. He reports that he is up-to-date on his tetanus vaccination because he recently had sepsis. Associated symptoms: Deny chest pain or fever(s) Review of Systems Const: Denies: fever(s) or chills Card: Denies: chest pain, palpitations or irregular heart rhythm Resp: Denies: dyspnea, productive cough or non-productive cough Musc: Reports: other ( left shoulder pain status post fall) [facility] ED PFSH: Medical History Diverticulitis Fracture of T12 vertebra Surgical History History of cholecystectomy History of spinal surgery Status post colonoscopy (01/25/22) Family History Grandmother Diabetes Grandfather Cancer Sister Multiple sclerosis Father Degeneration of spine Social History Smoking and tobacco status: current every day smoker Quit status (tobacco): not considering quitting Second hand smoke exposure: Yes Alcohol intake: former Physical Exam Const: COMMON NORMALS: patient oriented x3 and alert OTHER: Patient is in obvious pain. Tearful Neck/C-Spine: COMMON NORMALS: no JVD Resp: COMMON NORMALS: normal respiratory effort, No use of accessory muscles and clear to auscultation bilaterally AUSCULTATION: clear to auscultation bilaterally Cardio: COMMON NORMALS: no JVD, regular rate, regular rhythm, S1 normal heart sound present, S2 normal heart sound present and No murmurs present (Cardio) RATE: regular rate RHYTHM: regular rhythm HEART SOUNDS: S1 normal heart sound present and S2 normal heart sound present Extremity: NARRATIVE EXTREMITY EXAM: Tenderness to palpation left humerus, proximal. No obvious bony deformity. Patient has limited range of motion. He does not want to move the arm at all related to pain. He does move his hand full flexion extension of all digits. Pulses radial and ulnar are intact. Color and sensation intact to the distal arm. Negative for any bruising or soft tissue deformity. Left shoulder does seem slightly lower than right shoulder Neuro: COMMON NORMALS: patient oriented x3 SENSORIUM/ORIENTATION: Yes alert Course Vital Signs: Vital signs: Vital Signs Temperature 96.8 F L 06/22/22 18:41 Pulse Rate 75 06/22/22 19:13 Respiratory Rate 16 06/22/22 19:28 Blood Pressure 137/104 06/22/22 19:13 Pulse Oximetry 98 06/22/22 19:28 Oxygen Delivery Me thod 06/22/22 19:13 MDM - Extremity (Nontraumatic) Medical Decision Making Consider fracture versus dislocation versus contusion X-ray shoulder 3 view shows left humeral neck mildly displaced impacted fracture. Pain control started. Placed patient in coaptation splint refer to orthopedics for continued follow-up. No sign of neurovascular compromise. Consulted with Dr. Padron for outpatient pain control. Follow-up with orthopedics. Return to the ER for any new or worsening symptoms. Lab Data Radiology Impressions Shoulder X-Ray 06/22/22 18:36 IMPRESSION: Left humeral neck mildly displaced impacted fracture. Discharge Plan Discharge Patient Disposition: Home Clinical Impression: Fracture of humerus Qualifiers: Encounter type: initial encounter Humerus Location: surgical neck Fracture type: closed Fracture alignment: displaced Laterality: left Condition: Stable Prescriptions: No Action lisinopril 20 mg tablet See Rx Instructions .ROUTE .COMPLEX Qty: 90 0RF Dose Instruction: Take 1 tablet by mouth once daily Rx Instructions: Take 1 tablet by mouth once daily atorvastatin 40 mg tablet See Rx Instructions .ROUTE .COMPLEX Qty: 90 1RF Dose Instruction: Take 1 tablet by mouth once daily Rx Instructions: Take 1 tablet by mouth once daily cyclobenzaprine 10 mg tablet See Rx Instructions .ROUTE .COMPLEX Qty: 30 0RF Dose Instruction: TAKE 1 TABLET BY MOUTH UP TO THREE TIMES DAILY NEEDED FOR MUSCLE SPASM Rx Instructions: TAKE 1 TABLET BY MOUTH UP TO THREE TIMES DAILY NEEDED FOR MUSCLE SPASM pantoprazole 40 mg tablet,delayed release (DR/EC) See Rx Instructions .ROUTE .COMPLEX Qty: 30 0RF Dose Instruction: Take 1 tablet by mouth once daily Rx Instructions: Take 1 tablet by mouth once daily Discharge Orders: Discharge ED (Routine); Ordered 06/22/22 Ordered By: Daria Meyer Referrals: Inessa Coats DO [Primary Care Provider] - Discharge Diet: Usual diet Discharge Activity: Limit activity as instructed Patient Instructions: Fractures - Humerus Activity Restrictions/Additional Instructions: use pain medication as directed as needed for pain. Maintain splint and keep it dry. Follow-up with orthopedics. Return to ER for any new or worsening symptoms. Coding Level of Care Code ED Vocational Nurse for Analig Fwd Exam Expanded Problem Focused
[2022-06-22 19:11] VITALS: RESP 18; O2SAT 98
[2022-06-22] MEDS: ondansetron 2 mg/ML SDV 2 mL 4 MG IVP (19:11)
[2022-06-22] MEDS: HYDROmorphone 1 mg/mL INJ 1 mL 0.5 MG IVP ×2 (19:11→19:28)
[2022-06-22 19:13] VITALS: BP 137/104; PULSE 75; RESP 16; O2SAT 98
[2022-06-22 19:28] VITALS: RESP 16; O2SAT 98
[2022-06-22 20:08] VITALS: BP 135/94; PULSE 80; RESP 18; O2SAT 95
--- NOTE | 2022-06-27 09:14 | DCPLANNER ---
Addendum entered by Torri Boyle 07/07/22 11:05: Patient had a follow up appointment scheduled with ortho - patient did attend appointment. Addendum entered by Torri Boyle 06/27/22 15:17: Patient has a follow up appointment scheduled for , June 29, 2022 at 8:[address] Francois at ortho. Clinic will call patient with appointment information. Original Note: manager credit had message to schedule a follow up appointment for patient with ortho. manager credit sent patients information to the front office staff at ortho. Patients information will be printed and reviewed. Clinic will call patient with appointment information.
== END 2022-06-22 20:05 | disposition home or self-care (01) ==
PROVIDERS: Emergency Provider Nurse Practitioner Family; PCP Family Medicine
DX: S42.212A Unspecified displaced fracture of surgical neck of left humerus, initial encounter for closed fracture (principal); F17.210 Nicotine dependence, cigarettes, uncomplicated; W18.09XA Striking against other object with subsequent fall, initial encounter
CPT/HCPCS: 29240; 73030; 96374; 96375; 96376; 99284; J1170; J2405

== ENCOUNTER 2022-06-24 10:59 | Emergency (ER) | payer OTHER, SELFPAY ==
[2022-06-24 11:02] VITALS: BP 155/94; PULSE 68; RESP 18; TEMP 35.9; O2SAT 100; BMI 30.5
--- NOTE | 2022-06-24 11:12 | W.ED.EXTPRO ---
HPI - Extremity Problem General: Chief complaint: Extremity Injury, Upper Stated complaint: previous injury to left arm, swelling Time Seen by Provider: 06/24/22 11:12 History of Present Illness: Mr. Worley is a 51-year-old gentleman with known proximal humerus fracture from fall on 06/22 presenting to the emergency department due to concern over increased swelling. He reports more significant swelling starting yesterday. He has had mildly increased amount of pain however pain is still been treated with Percocet. Denies use of other wisy-unv-bscnhgk analgesia. Does elevate when he is sleeping however due to coaptation splint otherwise has been in sling. Denies Onset (ago): day(s) Pain Consistency: constant Location: left and upper extremity Quality: aching and sharp Radiation: distal Relieving factors: nothing Exacerbating factors: palpation Associated symptoms: Reports no associated symptoms Review of Systems General: Reports: 10 or more systems reviewed and unremarkable except in HPI and below PFSH ED PFSH: Medical History Diverticulitis Fracture of T12 vertebra Surgical History History of cholecystectomy History of spinal surgery Status post colonoscopy (01/25/22) Family History Grandmother Diabetes Grandfather Cancer Sister Multiple sclerosis Father Degeneration of spine Social History Smoking and tobacco status: current every day smoker Quit status (tobacco): not considering quitting Second hand smoke exposure: Yes Alcohol intake: former Physical Exam Const: COMMON NORMALS: alert GENERAL APPEARANCE: cooperative and well developed HENMT: COMMON NORMALS: normocephalic and atraumatic HEAD & SCALP: normocephalic and atraumatic Eye: COMMON NORMALS: conjunctivae normal CONJUNCTIVA: Yes conjunctivae normal SCLERA: sclerae normal Neck/C-Spine: COMMON NORMALS: supple GENERAL: Yes trachea midline Resp: COMMON NORMALS: normal respiratory effort EFFORT & INSPECTION: Yes able to speak in complete sentences Cardio: COMMON NORMALS: regular rate and regular rhythm RATE: regular rate RHYTHM: regular rhythm Extremity: NARRATIVE EXTREMITY EXAM: Left upper extremity in coaptation splint. There appears to be appropriate tenderness palpation of the region of injury and shoulder region. There is no significant contusion or ecchymosis observed. There is edema more considerably on the lower portion of the arm extending to the hand over still appears in the [id number]-yk-[id number] range. Palpating the compartments and tissues soft without pain out of proportion to exam or out of expected range. There is some degree of referred pain to the shoulder with palpation of the forearm. Pulses are palpable. CMS otherwise intact. Patient denies paresthesias. GENERAL: Yes normal exam except as noted and Yes edema Neuro: COMMON NORMALS: moves all extremities SENSORIUM/ORIENTATION: Yes alert and No Orientation impaired Psych: COMMON NORMALS: mental status grossly normal and Normal thought process present THOUGHT PROCESS: Normal thought process present Course Vital Signs: Vital signs: Vital Signs Temperature 96.6 F L 06/24/22 11:02 Pulse Rate 68 06/24/22 12:06 Respiratory Rate 18 06/24/22 12:06 Blood Pressure 155/94 06/24/22 12:06 Pulse Oximetry 100 06/24/22 11:02 Oxygen Delivery Me thod 06/24/22 11:02 MDM - Extremity (Nontraumatic) Medical Decision Making 51-year-old gentleman presenting with swelling in the context of known fracture. Exam as above. CMS intact. I do not see evidence of compartment syndrome. Additional x-ray ordered based on exam and prior x-ray was reviewed. No additional fracture identified. Pain improved with analgesia. Most likely etiology of symptoms is appropriate post fracture findings. Discussed need for elevation as possible to reduce swelling distally. The results of ED evaluation were discussed with the patient including prescriptions and/or symptomatic cares (if applicable) including appropriate and responsible use, followup plan, and return precautions. The patient verbalized understanding and felt safe for discharge. Medical Records I reviewed the patient's medical records. Lab Data I reviewed the patient's lab results. Radiology Impressions Elbow X-Ray 06/24/22 11:19 IMPRESSION: No definite signs of acute fracture or dislocation. Discharge Plan Discharge Patient Disposition: Home Clinical Impression: Fracture of proximal end of left humerus Condition: Stable Prescriptions: No Action (DME) cuff and collar brace See Rx Instructions .Route .MEDSUPPLY Qty: 1 0RF Rx Instructions: As directed lisinopril 20 mg tablet See Rx Instructions .ROUTE .COMPLEX Qty: 90 0RF Dose Instruction: Take 1 tablet by mouth once daily Rx Instructions: Take 1 tablet by mouth once daily atorvastatin 40 mg tablet See Rx Instructions .ROUTE .COMPLEX Qty: 90 1RF Dose Instruction: Take 1 tablet by mouth once daily Rx Instructions: Take 1 tablet by mouth once daily pantoprazole 40 mg tablet,delayed release (DR/EC) See Rx Instructions .ROUTE .COMPLEX Qty: 30 0RF Dose Instruction: Take 1 tablet by mouth once daily Rx Instructions: Take 1 tablet by mouth once daily oxycodone-acetaminophen [Percocet] 5-325 mg tablet 1 tab PO Q6H PRN (Reason: pain) 7 Days Qty: 28 0RF cyclobenzaprine 10 mg tablet See Rx Instructions .ROUTE .COMPLEX Qty: 30 0RF Dose Instruction: TAKE 1 TABLET BY MOUTH UP TO THREE TIMES DAILY NEEDED FOR MUSCLE SPASM Rx Instructions: TAKE 1 TABLET BY MOUTH UP TO THREE TIMES DAILY NEEDED FOR MUSCLE SPASM Discharge Orders: Discharge ED (Routine); Ordered 06/24/22 Ordered By: Casey Dorman Referrals: Inessa Coats DO [Primary Care Provider] - Discharge Diet: Usual diet Discharge Activity: Limit activity as instructed Patient Instructions: Proximal Humerus Fracture (ED), Opioid Safety, Pain Management Activity Restrictions/Additional Instructions: Thank you for visiting the emergency department. You were seen and evaluated for increased swelling related to previously diagnosed shoulder fracture. The swelling is likely within the normal expected amount for your injury. Please continue to use your previously prescribed pain medications and other medications. You may use wsqy-zqs-vtyvocg medications such as acetaminophen and ibuprofen for pain however please do not exceed the daily recommended dosage as listed on the packaging and please keep in mind that many namebrand medications contain the same active ingredients. Please avoid these medications if previously instructed to do so by another physician due to other underlying medical condition. Keep in mind that sometimes pain medications also contain acetaminophen which should be included in the daily total limit. Please elevate the extremity as best you can by lying on your back. Return to the emergency department for uncontrolled pain, new changes in sensation or ability to move your fingers, any other uncontrolled symptoms, or anything else that you are concerned about a feel needs emergency department evaluation. Coding Level of Care Code ED Dentistry Professor for Janet Fwcarmen Exam Comprehensive
--- NOTE | 2022-06-24 11:19 | XRR_ITS ---
PROCEDURE INFORMATION: Exam: XR Left Elbow Exam date and time: 06/24/2022 11:31 AM Age: 51 years old Clinical indication: Injury or trauma; Fall; Blunt trauma (contusions or hematomas); Elbow; Left; Additional info: Fall, increased pain TECHNIQUE: Imaging protocol: Radiologic exam of the Left elbow. Views: 1 or 2 views. COMPARISON: CR (CHEST, ) 06/22/2022 6:51 PM FINDINGS: Bones/joints: Material external to the patient obscuring fine bony detail. The distal humerus is intact. The proximal radius is intact. The proximal ulna is intact. The radiocapitellar and ulnotrochlear joint spaces are normally maintained. Soft tissues: No elevated fat pad to suggest joint effusion is seen. XR/XR elbow LT 2V [id number] IMPRESSION: No definite signs of acute fracture or dislocation.
[2022-06-24 12:06] VITALS: BP 155/94; PULSE 68; RESP 18
== END 2022-06-24 12:08 | disposition home or self-care (01) ==
PROVIDERS: Emergency Provider Emergency Medicine; PCP Family Medicine
DX: S42.202A Unspecified fracture of upper end of left humerus, initial encounter for closed fracture (principal); W19.XXXA Unspecified fall, initial encounter; F17.210 Nicotine dependence, cigarettes, uncomplicated
CPT/HCPCS: 73070; 99283

== ENCOUNTER → 2022-06-29 09:15 | Outpatient (BNVA) | payer OTHER, SELFPAY | PROVIDERS: PCP Family Medicine; Visit Provider Student in an Organized Health Care Education/Training Program | DX: S42.212A Unspecified displaced fracture of surgical neck of left humerus, initial encounter for closed fracture (principal); W00.0XXA Fall on same level due to ice and snow, initial encounter | CPT/HCPCS: 73030 ==

== ENCOUNTER 2022-06-29 11:09 | Outpatient (CLI) | payer OTHER, SELFPAY | END 2022-06-29 11:10 | disposition home or self-care (01) | LOC: SPT 11:10 | PROVIDERS: PCP Family Medicine; Visit Provider Student in an Organized Health Care Education/Training Program | DX: Z46.89 Encounter for fitting and adjustment of other specified devices (principal); S42.302D Unspecified fracture of shaft of humerus, left arm, subsequent encounter for fracture with routine healing; X58.XXXD Exposure to other specified factors, subsequent encounter | CPT/HCPCS: 97760 ==

== ENCOUNTER → 2022-07-13 14:27 | Outpatient (BNVA) | payer OTHER, SELFPAY | PROVIDERS: PCP Family Medicine; Visit Provider Student in an Organized Health Care Education/Training Program | DX: S42.202A Unspecified fracture of upper end of left humerus, initial encounter for closed fracture (principal); X58.XXXA Exposure to other specified factors, initial encounter | CPT/HCPCS: 73030 ==

== ENCOUNTER → 2022-08-03 15:29 | Outpatient (BNVA) | payer OTHER, SELFPAY | PROVIDERS: PCP Family Medicine; Visit Provider Student in an Organized Health Care Education/Training Program | DX: S42.202A Unspecified fracture of upper end of left humerus, initial encounter for closed fracture (principal); X58.XXXA Exposure to other specified factors, initial encounter | CPT/HCPCS: 73030 ==

== ENCOUNTER 2022-08-16 06:00 | Outpatient (RCR) | payer OTHER, SELFPAY | END 2022-08-29 23:59 | disposition home or self-care (01) | LOC: SOT 06:00 | PROVIDERS: PCP Family Medicine; Visit Provider Student in an Organized Health Care Education/Training Program | DX: S42.202D Unspecified fracture of upper end of left humerus, subsequent encounter for fracture with routine healing (principal); X58.XXXD Exposure to other specified factors, subsequent encounter | CPT/HCPCS: 97110; 97166 ==

== ENCOUNTER 2022-08-30 06:00 | Outpatient (RCR) | payer OTHER, SELFPAY | END 2022-09-27 23:59 | disposition home or self-care (01) | LOC: SOT 06:00 | PROVIDERS: PCP Family Medicine; Visit Provider Student in an Organized Health Care Education/Training Program | DX: S42.202D Unspecified fracture of upper end of left humerus, subsequent encounter for fracture with routine healing (principal); X58.XXXD Exposure to other specified factors, subsequent encounter | CPT/HCPCS: 97110 ==

== ENCOUNTER → 2022-09-05 10:19 | Outpatient (BNVA) | payer OTHER, SELFPAY | PROVIDERS: PCP Family Medicine; Visit Provider Family Medicine | DX: I10 Essential (primary) hypertension (principal); R35.1 Nocturia | CPT/HCPCS: 84153; 85025 ==

== ENCOUNTER → 2022-09-20 09:57 | Outpatient (BNVA) | payer OTHER, SELFPAY | PROVIDERS: PCP Family Medicine; Visit Provider Nurse Practitioner Family | DX: S42.202D Unspecified fracture of upper end of left humerus, subsequent encounter for fracture with routine healing (principal); X58.XXXD Exposure to other specified factors, subsequent encounter; F17.210 Nicotine dependence, cigarettes, uncomplicated | CPT/HCPCS: 73030 ==

== ENCOUNTER 2022-11-07 19:26 | Emergency (ER) | payer OTHER, SELFPAY ==
[2022-11-07 19:36] VITALS: BP 148/92; PULSE 63; RESP 14; TEMP 36.7; O2SAT 100
--- NOTE | 2022-11-07 19:42 | ED_ITS ---
HPI - Extremity Problem General: Chief complaint: Extremity Injury, Upper Stated complaint: left hand lac Time Seen by Provider: 11/07/22 19:42 History of Present Illness: About 11:00 this morning patient was working with his motorcycle while in the chain when he excellently pinched his left ring finger between the chain and the sprocket. Patient sustained a laceration to the side of the finger along the middle phalanx. Normal range of motion is noted. Tetanus is up-to-date. Patient came in due to persistent bleeding from the wound. Associated symptoms: Deny chest pain or fever(s) Review of Systems Const: Denies: fever(s) Card: Denies: chest pain Resp: Denies: dyspnea GI: Denies: vomiting : Denies: difficulty urinating Skin/Breast: Reports: new lesions [facility] ED PFSH: Medical History Diverticulitis Fracture of T12 vertebra Surgical History History of cholecystectomy History of spinal surgery Status post colonoscopy (01/25/22) Family History Grandmother Diabetes Grandfather Cancer Sister Multiple sclerosis Father Degeneration of spine Social History Smoking and tobacco status: current every day smoker Quit status (tobacco): not considering quitting Second hand smoke exposure: Yes Alcohol intake: former Substance/Drug Use: never Physical Exam Const: COMMON NORMALS: alert HENMT: COMMON NORMALS: normocephalic HEAD & SCALP: normocephalic Neck/C-Spine: COMMON NORMALS: full ROM Resp: COMMON NORMALS: normal respiratory effort and clear to auscultation bilaterally AUSCULTATION: clear to auscultation bilaterally Cardio: COMMON NORMALS: regular rate RATE: regular rate Back/Pelvis: COMMON NORMALS: thoracic and lumbar spine normal to inspection Extremity: LEFT UPPER EXTREMITY: Yes hand & digits (1-1/2 cm laceration left ring finger) Left hand and digits: Yes inspection, Yes palpation, Yes ROM and Yes neurovascular exam Neuro: SENSORIUM/ORIENTATION: Yes alert Skin: TRAUMA: laceration (Left ring finger) irregular Procedures Laceration Laceration 1: Site: hand Side (If applicable): left Size (cm): 1.5 Description: irregular Depth: simple, single layer Local Anesthetic: lidocaine 1% Amount of anesthesia used (mL): 1 Pre-repair: wound explored and irrigated extensively Skin layer closed with: nylon Size (cm): 5-0 Number of sutures: 3 Technique: simple, interrupted (2) and horizontal mattress (1) Course Vital Signs: Vital signs: Vital Signs Temperature 98.1 F 11/07/22 19:36 Pulse Rate 63 11/07/22 19:36 Respiratory Rate 14 11/07/22 19:36 Blood Pressure 148/92 11/07/22 19:36 Pulse Oximetry 100 11/07/22 19:36 Oxygen Delivery Me thod Room Air 11/07/22 19:36 MDM - Extremity (Nontraumatic) Medical Decision Making 52-year-old male patient comes in with injury to the left ring finger. On exam patient has a 1-1/2 cm laceration to the middle phalanx of the left ring finger. Patient has good range of motion of the finger and normal cap refill. Differential diagnosis includes fracture, laceration, foreign body. X-ray was unremarkable. Wound was closed with 3 sutures. Patient tolerated procedure well. Discharge Plan Discharge Patient Disposition: Home Clinical Impression: Finger laceration Qualifiers: Encounter type: initial encounter Finger: ring finger Damage to nail status: without damage Foreign body presence: without foreign body Laterality: left Qualified Code(s): S61.215A - Laceration without foreign body of left ring finger without damage to nail, initial encounter Condition: Stable Prescriptions: No Action (DME) cuff and collar brace See Rx Instructions .Route .MEDSUPPLY Qty: 1 0RF Rx Instructions: As directed pantoprazole 40 mg tablet,delayed release (DR/EC) See Rx Instructions .ROUTE .COMPLEX Qty: 90 1RF Dose Instruction: Take 1 tablet by mouth once daily Rx Instructions: Take 1 tablet by mouth once daily lisinopril 20 mg tablet See Rx Instructions .ROUTE .COMPLEX Qty: 90 1RF Dose Instruction: Take 1 tablet by mouth once daily Rx Instructions: Take 1 tablet by mouth once daily atorvastatin 40 mg tablet See Rx Instructions .ROUTE .COMPLEX Qty: 90 1RF Dose Instruction: Take 1 tablet by mouth once daily Rx Instructions: Take 1 tablet by mouth once daily cyclobenzaprine 10 mg tablet See Rx Instructions .ROUTE .COMPLEX Qty: 30 0RF Dose Instruction: TAKE 1 TABLET BY MOUTH UP TO THREE TIMES DAILY NEEDED FOR MUSCLE SPASM Rx Instructions: TAKE 1 TABLET BY MOUTH UP TO THREE TIMES DAILY NEEDED FOR MUSCLE SPASM hydrocodone-acetaminophen 5-325 mg tablet 1 tab PO Q6H PRN (Reason: pain) 7 Days Qty: 28 0RF Discharge Orders: Discharge ED (Routine); Ordered 11/07/22 Ordered By: Derrick Valentine Referrals: Inessa Coats DO [Primary Care Provider] - Discharge Diet: Usual diet Discharge Activity: Increase activity as tolerated Patient Instructions: Finger Laceration (ED) Activity Restrictions/Additional Instructions: Keep wound clean and dry. Is important keep the wound as clean and dry as possible for the next 48 hours. Increase activity as tolerated. Sutures need to come out in 7 days. Follow-up with primary care in 1 week for recheck. Coding Level of Care Code ED Analytical Sciences Director for Janet Rubio
--- NOTE | 2022-11-07 20:01 | XRR_ITS ---
PROCEDURE INFORMATION: Exam: XR Left Hand Exam date and time: 11/07/2022 8:10 PM Age: 52 years old Clinical indication: Injury or trauma; Other: Laceration; Left; Ring finger; Additional info: Injury. Left ring finger TECHNIQUE: Imaging protocol: Radiologic exam of the left hand. Views: 3 or more views. COMPARISON: No relevant prior studies available. FINDINGS: Bones/joints: Normal. Soft tissues: Normal. XR/XR hand LT min 3V* [id number] IMPRESSION: No acute findings.
[2022-11-07] MEDS: bacitracin ointment Pkt 1 EACH TOPICAL (20:30)
== END 2022-11-07 20:31 | disposition home or self-care (01) ==
PROVIDERS: Emergency Provider Nurse Practitioner Family; PCP Family Medicine
DX: S61.215A Laceration without foreign body of left ring finger without damage to nail, initial encounter (principal); F17.210 Nicotine dependence, cigarettes, uncomplicated; W23.0XXA Caught, crushed, jammed, or pinched between moving objects, initial encounter
CPT/HCPCS: 12001; 73130; 99283

== ENCOUNTER 2022-11-13 09:13 | Outpatient (CLI) | payer OTHER, SELFPAY ==
--- NOTE | 2022-11-13 | ECG_ITS ---
[facility] Test Date: 2022-11-13 Pat Name: Arlin Worley Department: Room: Gender: Male Lisw: Susy Beltrán : 1970 Requested By: Inessa Coats Order Number: [id number] Villarreal MD: Gallo Christina M.D. Interpretive Statements NAME OF STUDY: LEXISCAN SESTAMIBI STRESS TEST INDICATION: [Dyslipidemia, ] Procedure: At the baseline, the blood pressure was 152/118 mmHg with a heart rate of 66 bpm. The electrocardiogram showed normal sinus rhythm, normal axis with normal ST and T's. The Lexiscan was infused over a period of 20 seconds. A total of 0.4 mg of Lexiscan was infused. The stress phase was continued for a total of 5 minutes. Heart rate was at the end of stress phase was 138 bpm and a blood pressure of 119/60 mmHg. The EKG at the peak infusion revealed normal sinus rhythm with no significant ST-T wave changes. Sestamibi was injected 20 seconds after the Lexiscan infusion. Blood pressure at the end of recovery phase was 128/97 mmHg with a heart rate of 85 bpm. Conclusion: 1. Normal EKG response to Lexiscan infusion 2. No Lexiscan induced chest pain or cardiac arrhythmia. 3. Normal blood pressure and heart rate response. 4. Sestamibi/sestamibi perfusion scan pending; see separate report. Electronically Signed On 11-18-2022 21:20:58 CDT by Gallo Christina M.D. [email or web address]
[2022-11-13 09:50] VITALS: BMI 28.7
--- NOTE | 2022-11-13 09:59 | NMCV_ITS ---
NM marilee perf SPECT r/s* [id number] Arlin Worley Age: 52 Gender: M : 1970 Exam Date: 11/13/2022 11:02 Ordering Phys: Inessa Coats DO Technologist: BHUPENDRA Hannon Exam Location: [facility] Indications: Chest pain STRESS TEST Please see separate stress test report in [facility] for full findings IMAGE PROTOCOL Rest/Stress 1 Lexiscan Day Radiopharmaceutical Dose (mCi) Administration Site Administered by Rest: Tc-99m 10.8 IV BHUPENDRA Hannon Sestamibi Stress:Tc-99m 32.8 IV BHUPENDRA Batista Sestamibi Rest: 13-Nov-2022 60 Discovery 630 Stress: 13-Nov-2022 30 Discovery 630 0.4mg Lexiscan. Images obtained in supine and prone position. SPECT RESULTS Technical Quality: Excellent Raw Data Analysis: Normal Image Corrections: No attenuation or motion correction applied Summed Stress Score: 0 Summed Rest Score: 0 Summed Difference Score: 0 PERFUSION FINDINGS SPECT images demonstrate homogeneous tracer distribution throughout the myocardium. FUNCTIONAL RESULTS (calculated via Gated SPECT) Stress Image LV EF (%): 72 Stress EDV (mL):115 TID: 0.96 Stress ESV (mL):32 FUNCTIONAL FINDINGS: There is normal left ventricular systolic function. IMPRESSIONS 1. Normal myocardial perfusion imaging with no evidence of ischemia 2. LV systolic function is normal Gallo Christina MD (Electronically Signed) Final Date: 13 Nov 2022 16:52 S
[2022-11-13] MEDS: aminophylline 25 mg/mL SDV 10 mL IVP (12:15)
[2022-11-13 12:33] VITALS: BP 128/97; PULSE 94
--- NOTE | 2022-11-13 12:53 | PC.NURSE ---
Patient physically unable to reach target heart rate during exercise mibi. Switched to melina mibi.
== END 2022-11-13 09:14 | disposition home or self-care (01) ==
LOC: CDL 09:16
PROVIDERS: PCP Family Medicine; Visit Provider Family Medicine
DX: E78.5 Hyperlipidemia, unspecified (principal); R07.9 Chest pain, unspecified
CPT/HCPCS: 36415; 78452; 93017; 96374; A9500; J0280

== ENCOUNTER → 2022-12-05 08:26 | Outpatient (BNVA) | payer OTHER, SELFPAY | PROVIDERS: PCP Family Medicine; Visit Provider Family Medicine | DX: D50.9 Iron deficiency anemia, unspecified (principal) | CPT/HCPCS: 82728; 83550; 85025 ==

== ENCOUNTER 2023-01-08 10:36 | Emergency (ER) | payer OTHER, SELFPAY ==
[2023-01-08 10:50] VITALS: BP 159/97; PULSE 79; RESP 16; TEMP 36.6; O2SAT 99; BMI 27.2
[2023-01-08 11:19] LABS: Basophils # 0.1 10^3/uL (0.0-0.1); Basophils % 0.6 %; Eosinophils # 0.1 10^3/uL (0.0-0.8); Hematocrit 43.8 % (42.0-52.0); Hemoglobin 13.8 g/dL (11.7-16.6); Lymphocytes # 1.7 10^3/uL (0.8-4.8); Lymphocytes % 14.4 %; Mean Corpuscular HGB Conc 31.5 g/dL (30.0-36.0); Mean Corpuscular Hemoglobin 24.3 pg (28.0-34.0); Mean Platelet Volume 10.9 fL (7.4-10.4); Monocytes # 1.1 10^3/uL (0.2-0.9); Monocytes % 9.4 %; Neutrophils # 8.96 10^3/uL (1.8-7.7); Neutrophils % 74.3 %; Nucleated Red Blood Cells % 0 %; Platelet Count 246 10^3/cmm (130-400); Red Blood Count 5.69 10^6/uL (4.1-5.3); Red Cell Distribution Width 15.3 % (12.1-15.1); White Blood Count 12.1 10^3/uL (4.0-10.0)
[2023-01-08 11:35] VITALS: BP 149/93; PULSE 64; O2SAT 97
--- NOTE | 2023-01-08 11:35 | W.ED.GENADLT ---
HPI - General Adult General: Chief complaint: General Medical Stated complaint: bruising and pain of abd Time Seen by Provider: 01/08/23 11:15 History of Present Illness: Patient presents to the ER today with complaints of bruising per one of his trocar sites. Patient had what looks like a laparoscopic left partial colectomy secondary to diverticulitis at [facility] at [place] [address] French. He is passing gas. His abdomen is soft and he has bowel sounds. He is concerned that his right lower trocar site is bruised to the right of his abdomen where none of his other trocar sites are. Patient is eating liquids and just tarted soft liquids today. Patient has no other complaints. Review of Systems General: Reports: 10 or more systems reviewed and unremarkable except in HPI and below PFSH ED PFSH: Medical History Diverticulitis Fracture of T12 vertebra Surgical History History of cholecystectomy History of spinal surgery Status post colonoscopy (01/25/22) Family History Grandmother Diabetes Grandfather Cancer Sister Multiple sclerosis Father Degeneration of spine Social History Smoking and tobacco status: current every day smoker Quit status (tobacco): not considering quitting Second hand smoke exposure: Yes Alcohol intake: former Substance/Drug Use: never Physical Exam Const: COMMON NORMALS: no acute distress, average body habitus, patient oriented x3, no limitations, healthy appearing, alert and well nourished HENMT: COMMON NORMALS: normocephalic, atraumatic, hearing grossly normal bilaterally, external ears normal, Normal external nose present and moist oral mucous membranes HEAD & SCALP: normocephalic and atraumatic NOSE: Normal external nose present EXTERNAL EAR: Yes external ears normal Neck/C-Spine: COMMON NORMALS: full ROM, no lymphadenopathy, supple, no meningeal signs, no JVD and Thyroid normal THYROID: Thyroid normal Chest: COMMONS NORMALS: normal inspection of the chest and normal palpation of entire chest wall Cardio: COMMON NORMALS: no JVD, regular rate, regular rhythm, S1 normal heart sound present, S2 normal heart sound present, No gallops present (Cardio), No clicks present (Cardio), No murmurs present (Cardio) and No rub (Cardio) RATE: regular rate RHYTHM: regular rhythm HEART SOUNDS: S1 normal heart sound present and S2 normal heart sound present GI: OTHER: Abdomen soft positive bowel sounds in all 4 quadrants. Multiple healing trocar sites, mini lap incision near suprapubic region all look good. There is bruising to the right inferior trocar site but nothing extraordinary. : COMMON NORMALS: Yes no CVA tenderness BLADDER/KIDNEY EXAM: Yes no CVA tenderness Back/Pelvis: COMMON NORMALS: no CVA tenderness Neuro: COMMON NORMALS: patient oriented x3 SENSORIUM/ORIENTATION: Yes alert MENINGEAL SIGNS: Yes no meningeal signs Course Vital Signs: Vital signs: Vital Signs Temperature 97.9 F 01/08/23 10:50 Pulse Rate 64 01/08/23 11:35 Respiratory Rate 16 01/08/23 10:50 Blood Pressure 149/93 01/08/23 11:35 Pulse Oximetry 97 01/08/23 11:35 Oxygen Delivery Me thod Room Air 01/08/23 10:50 MDM - General Adult Medical Decision Making Patient presents to the ER complaining of right abdominal bruising and abdominal pain. Patient is postop day 3 from left partial colectomy secondary to diverticulitis at [facility] in [place]. Patient's exam showed he had a benign abdomen with routine healing consistent surgical intervention. Patient's lab work was benign. Patient was given Toradol 60 mg IM since he did not take his oxycodone at home this morning. If this improves patient's pain patient be discharged. Patient is to follow-up with PCP in approximately 1 week and surgery as directed from surgeon. Differential Diagnosis Bruising, postsurgery, abdominal pain Medical Records I reviewed the patient's medical records. Lab Data I reviewed the patient's lab results. 01/08/23 11:11 01/08/23 11:11 Laboratory Results WBC 12.1 10^3/uL (4.0-10.0) H 01/08/23 11:11 RBC 5.69 10^6/uL (4.1-5.3) H 01/08/23 11:11 Hgb 13.8 g/dL (11.7-16.6) 01/08/23 11:11 Hct 43.8 % (42.0-52.0) 01/08/23 11:11 MCV 77.0 fl (80-94) L 01/08/23 11:11 MCH 24.3 pg (28.0-34.0) L 01/08/23 11:11 MCHC 31.5 g/dL (30.0-36.0) 01/08/23 11:11 RDW 15.3 % (12.1-15.1) H 01/08/23 11:11 Plt Count 246 10^3/cmm (130-400) 01/08/23 11:11 MPV 10.9 fL (7.4-10.4) H 01/08/23 11:11 Neut % (Auto) 74.3 % 01/08/23 11:11 Lymph % (Auto) 14.4 % 01/08/23 11:11 [place] % (Auto) 9.4 % 01/08/23 11:11 Eos % (Auto) 1.0 % 01/08/23 11:11 Baso % (Auto) 0.6 % 01/08/23 11:11 Neut # (Auto) 8.96 10^3/uL (1.8-7.7) H 01/08/23 11:11 Lymph # (Auto) 1.7 10^3/uL (0.8-4.8) 01/08/23 11:11 [place] # (Auto) 1.1 10^3/uL (0.2-0.9) H 01/08/23 11:11 Eos # (Auto) 0.1 10^3/uL (0.0-0.8) 01/08/23 11:11 Baso # (Auto) 0.1 10^3/uL (0.0-0.1) 01/08/23 11:11 Nucleated RBC % (auto) 0 % 01/08/23 11:11 Nucleated RBCs # 0.0 /100WBC 01/08/23 11:11 Sodium 137 mmol/L (136-145) 01/08/23 11:11 Potassium 3.7 mmol/L (3.5-5.1) 01/08/23 11:11 Chloride 101 mmol/L (98-107) 01/08/23 11:11 Carbon Dioxide 22 mmol/L (22-29) 01/08/23 11:11 Anion Gap 17.7 (5-19) 01/08/23 11:11 BUN 7 mg/dL (6-20) 01/08/23 11:11 Creatinine 1.1 mg/dL (0.7-1.2) 01/08/23 11:11 GFR Calculation 70.6 mL/min (90-130) L 01/08/23 11:11 Glucose 102 mg/dL (65-115) 01/08/23 11:11 Calculated Osmolality 282 mOsm/kg (285-295) L 01/08/23 11:11 Lactic Acid 1.3 mmol/L (0.5-2.2) 01/08/23 11:11 Calcium 9.5 mg/dL (8.5-10.5) 01/08/23 11:11 Total Bilirubin 0.8 mg/dL (0.15-1.2) 01/08/23 11:11 AST 19 U/L (0-40) 01/08/23 11:11 ALT 11 U/L (0-41) 01/08/23 11:11 Alkaline Phosphatase 86 U/L (40-130) 01/08/23 11:11 Total Protein 7.4 g/dL (6.6-8.7) 01/08/23 11:11 Albumin 4.0 g/dL (3.5-5.2) 01/08/23 11:11 Globulin 3.4 g/dL (1.3-4.6) 01/08/23 11:11 Lipase 14 U/L (13-60) 01/08/23 11:11 Discharge Plan Discharge Patient Disposition: Home Clinical Impression: Acute postoperative abdominal pain Condition: Stable Prescriptions: No Action (DME) cuff and collar brace See Rx Instructions .Route .MEDSUPPLY Qty: 1 0RF Rx Instructions: As directed hydrocodone-acetaminophen 5-325 mg tablet 1 tab PO Q6H PRN (Reason: pain) 7 Days Qty: 28 0RF oxycodone 5 mg tablet 5 mg PO Q4H PRN (Reason: Pain) cyclobenzaprine 10 mg tablet 10 mg PO TID PRN (Reason: Muscle Spasm) lisinopril 20 mg tablet 20 mg PO QAM pantoprazole 40 mg tablet,delayed release (DR/EC) 40 mg PO QAM Discharge Orders: Discharge ED (Routine); Ordered 01/08/23 Ordered By: Gonzalo Umana Referrals: Inessa Coats DO [Primary Care Provider] - 1 week Patient Instructions: Abdominal Pain (ED) Activity Restrictions/Additional Instructions: Please follow-up with family practice doctor in approximately 1 week or sooner as needed. Please keep follow-up appointment with surgeon as directed from surgeon. Please return to the ER if worsening of symptoms. Coding Level of Care Code ED Veterinary Laboratory Technician for Janet Rubio
[2023-01-08 11:38] LABS: Alanine Aminotransferase 11 U/L (0-41); Alkaline Phosphatase 86 U/L (40-130); Anion Gap 17.7 (5-19); Aspartate Amino Transferase 19 U/L (0-40); Blood Urea Nitrogen 7 mg/dL (6-20); Calcium 9.5 mg/dL (8.5-10.5); Carbon Dioxide 22 mmol/L (22-29); Chloride 101 mmol/L (98-107); Globulin 3.4 g/dL (1.3-4.6); Glomerular Filtration Rate 70.6 mL/min (90-130); Glucose 102 mg/dL (65-115); Lipase 14 U/L (13-60); Osmolality Calculated 282 mOsm/kg (285-295); Potassium 3.7 mmol/L (3.5-5.1); Sodium 137 mmol/L (136-145); Total Bilirubin 0.8 mg/dL (0.15-1.2); Total Protein 7.4 g/dL (6.6-8.7)
[2023-01-08 11:39] LABS: Lactic Sepsis W/Reflex 1.3 mmol/L (0.5-2.2)
--- NOTE | 2023-01-08 12:01 | PC.PHAR ---
pt and pts verified pts medications-pt states he stop taking his atorvastatin 40mg daily about 3 months ago rx written 12/05/22 and ext med history shows last filled 10/07/22 90d/s pt states he dced because it makes him throw up-notes are made in the pharmacy comments
[2023-01-08] MEDS: ketorolac 30 mg/mL INJ IVP (12:40)
[2023-01-08 13:11] LABS: Add Urine Microscopic? YES; Bilirubin Urine 1+ (Negative); Blood Urine 2+ (Negative); Glucose Urine UA Norm (Normal); Ketones Urine 1+ (Negative); Leukocyte Esterase Urine Trace (Negative); Nitrate Urine Negative (Negative); Protein Urine Trace (Negative); Urine Appearance SL Hazy (CLEAR); Urine Color Yellow (Yellow); Urobilinogen Urine Norm (Negative); pH Urine 5 (5-7)
[2023-01-08 13:12] LABS: Add Urine Culture? No; Bacteria Urine TRACE /hpf; Calcium Oxalate Crystals Urine 0-4 /hpf; Mucus Urine 3+ /hpf; RBC Urine 0-4 /hpf (0-2); Squamous Epithelial Cell Urine 0-4 /hpf (0-5); WBC Urine 0-4 /hpf (0-5)
[2023-01-08 13:13] VITALS: BP 132/91; PULSE 60; RESP 18; O2SAT 99
== END 2023-01-08 13:14 | disposition home or self-care (01) ==
PROVIDERS: Physician Assistant; Emergency Provider Emergency Medicine; PCP Family Medicine
DX: G89.18 Other acute postprocedural pain (principal); R10.9 Unspecified abdominal pain; F17.200 Nicotine dependence, unspecified, uncomplicated; Z87.19 Personal history of other diseases of the digestive system; Z90.49 Acquired absence of other specified parts of digestive tract
CPT/HCPCS: 36415; 80053; 81001; 83605; 83690; 85025; 96374; 99284; J1885

== ENCOUNTER 2023-06-06 20:19 | Emergency (ER) | payer OTHER, SELFPAY ==
[2023-06-06 20:33] VITALS: BP 161/79; PULSE 64; RESP 16; TEMP 36.6; O2SAT 98; BMI 27.8
[2023-06-06 20:40] VITALS: BP 134/87; PULSE 59; RESP 14; O2SAT 96
[2023-06-06 21:04] LABS: Basophils # 0.1 10^3/uL (0.0-0.1); Eosinophils # 0.5 10^3/uL (0.0-0.8); Eosinophils % 5.7 %; Hematocrit 43.8 % (37-53); Lymphocytes # 3.2 10^3/uL (0.8-4.8); Lymphocytes % 33.8 %; Mean Corpuscular HGB Conc 31.7 g/dL (30-55); Mean Corpuscular Hemoglobin 23.4 pg (27-33); Mean Corpuscular Volume 73.6 fl (82-101); Mean Platelet Volume 10.4 fL (7.4-10.4); Monocytes # 0.8 10^3/uL (0.2-0.9); Neutrophils # 4.73 10^3/uL (1.8-7.7); Neutrophils % 50.3 %; Nucleated Red Blood Cells % 0 %; Platelet Count 259 10^3/cmm (157-399); Red Blood Count 5.95 10^6/uL (3.85-5.65); Red Cell Distribution Width 17.3 % (12.1-15.1); White Blood Count 9.38 10^3/uL (3.29-11.43)
--- NOTE | 2023-06-06 21:16 | CTR_ITS ---
PROCEDURE INFORMATION: Exam: CT Abdomen And Pelvis With Contrast Exam date and time: 06/06/2023 9:30 PM Age: 52 years old Clinical indication: Abdominal pain; Generalized; Prior surgery; Surgery date: 1-6 months; Surgery type: 12 in colon removal in December. -others include gb/ and back surgery; Additional info: Llq abd pain, HX of colon resection, adhesions, diverticulit TECHNIQUE: Imaging protocol: Computed tomography of the abdomen and pelvis with contrast. Radiation optimization: All CT scans at this facility use at least one of these dose optimization techniques: automated exposure control; mA and/or kV adjustment per patient size (includes targeted exams where dose is matched to clinical indication); or iterative reconstruction. Contrast material: OMNI 350; Contrast volume: 80 ml; Contrast route: INTRAVENOUS (IV); REPORTING DATA: Count of CT and Cardiac NM exams in prior 12 months: This patient has received [address] and 0 known cardiac nuclear medicine studies in the 12 months prior to the current study. COMPARISON: CT abdomen pelvis w con* [id number] 06/21/2021 9:55 PM RADIATION DOSE METRICS: Total DLP (mGy-cm): 659.1 FINDINGS: Heart: Mild cardiomegaly. Liver: Normal. No mass. Gallbladder and bile ducts: Normal. No calcified stones. No ductal dilation. Pancreas: Normal. No ductal dilation. Spleen: Normal. No splenomegaly. Adrenal glands: Normal. No mass. Kidneys and ureters: Normal. No hydronephrosis. Stomach and bowel: Prominent fluid in the small bowel and ascending colon may reflect an enterocolitis. Surgical suture line in the mid sigmoid colon without surrounding inflammatory changes. 14 mm cystic lesion is seen in the region of the surgical anastomosis in the wall, correlation with colonoscopy advised to assess for a possible mass, negative for surrounding inflammation. Appendix: No evidence of appendicitis. Intraperitoneal space: Unremarkable. No free air. No significant fluid collection. Vasculature: Unremarkable. No abdominal aortic aneurysm. Lymph nodes: Right deep pelvis 16 mm low-density nodule in the pericolonic fat suggestive of an enlarged lymph node, a fluid containing nonspecific cystic structure is also a consideration, of uncertain etiology. Urinary bladder: Unremarkable as visualized. Reproductive: Unremarkable as visualized. Bones/joints: Unremarkable. No acute fracture. Soft tissues: Unremarkable. CT/CT abdomen pelvis w con* [id number] IMPRESSION: 1. Prominent fluid in the small bowel and ascending colon may reflect an enterocolitis. 2. Surgical suture line in the mid sigmoid colon without surrounding inflammatory changes. 14 mm cystic lesion is seen in the region of the surgical anastomosis in the wall, correlation with colonoscopy advised to assess for a possible mass, negative for surrounding inflammation. 3. Right deep pelvis 16 mm low-density nodule in the pericolonic fat suggestive of an enlarged lymph node, a fluid containing nonspecific cystic structure is also a consideration, of uncertain etiology. 4. Mild cardiomegaly.
--- NOTE | 2023-06-06 21:17 | ED_ITS ---
HPI - Abdominal Pain 2 General: Chief Complaint: Abdominal Pain Stated Complaint: abd pain fever recent colon rmoval Time Seen by Provider: 06/06/23 20:52 History of Present Illness: Patient presents to the ER with complaints of left-sided abdominal pain that radiates to the right. Patient states he had a fever up to 100.8 at home. Patient has had a history of sepsis due to diverticulitis with rupture. When patient went for surgery for these he had adhesions. Patient [place] any bloody stool, nausea vomiting diarrhea at this time. Patient is wanted to come in to be checked out early if it was anything similar. Review of Systems 2 General: Reports: 10 or more systems reviewed and unremarkable except in HPI and below PFSH ED 2 PFSH: Medical History Diverticulitis Fracture of T12 vertebra Surgical History Status post colonoscopy (01/25/22) History of cholecystectomy History of spinal surgery Family History Grandmother Diabetes Grandfather Cancer Sister Multiple sclerosis Father Degeneration of spine Social History Smoking and tobacco/nicotine status: current every day tobacco/nicotine user Quit status (tobacco/nicotine): not considering quitting Second hand smoke exposure: Yes Alcohol intake: former Substance/Drug Use: never Physical Exam 2 Const: COMMON NORMALS: no acute distress, average body habitus, patient oriented x3, no limitations, healthy appearing, alert and well nourished HENMT: COMMON NORMALS: normocephalic, atraumatic, hearing grossly normal bilaterally, external ears normal, Normal external nose present, moist oral mucous membranes and oropharynx normal HEAD & SCALP: normocephalic and atraumatic NOSE: Normal external nose present EXTERNAL EAR: Yes external ears normal Neck/C-Spine: COMMON NORMALS: full ROM, no lymphadenopathy, supple, no meningeal signs, no JVD and Thyroid normal THYROID: Thyroid normal Chest: COMMONS NORMALS: normal inspection of the chest and normal palpation of entire chest wall Resp: COMMON NORMALS: normal respiratory effort, No retractions, No use of accessory muscles and clear to auscultation bilaterally AUSCULTATION: clear to auscultation bilaterally Cardio: COMMON NORMALS: no JVD, regular rate, regular rhythm, S1 normal heart sound present, S2 normal heart sound present, No gallops present (Cardio), No clicks present (Cardio), No murmurs present (Cardio) and No rub (Cardio) R ATE: regular rate RHYTHM: regular rhythm HEART SOUNDS: S1 normal heart sound present and S2 normal heart sound present GI: COMMON NORMALS: Normal to inspection, nondistended, normoactive bowel sounds present, Soft to palpation, No hepatosplenomegaly present and no masses; negative for non-tender (Diffusely tender to palpation) PALPATION: Yes Soft to palpation and Yes No hepatosplenomegaly present Neuro: COMMON NORMALS: patient oriented x3 SENSORIUM/ORIENTATION: Yes alert MENINGEAL SIGNS: Yes no meningeal signs Course 2 Vital Signs: Vital signs: Vital Signs Temperature 97.8 F 06/06/23 20:33 Pulse Rate 51 L 06/06/23 22:44 Respiratory Rate 14 06/06/23 22:44 Blood Pressure 125/83 06/06/23 22:44 Pulse Oximetry 94 06/06/23 22:44 Oxygen Delivery Me thod Room Air 06/06/23 22:44 MDM - Abdominal Pain Medical Decision Making Patient presents to the ER with abdominal pain. Lab work was obtained which is essentially unremarkable. With a normal white count normal hemoglobin hematocrit platelets BUN/creatinine. ET scan of the abdomen pelvis with contrast did show prominent fluid in the small bowel and ascending colon which may reflect enterocolitis. Also a cyst in the region of the surgical anastomosis. This was explained to the patient. Patient be discharged home to follow-up with his PCP Differential Diagnosis Likely abdominal pain; Unlikely acute appendicitis, calculus of kidney, constipation, diverticulitis, endometriosis, gastroenteritis, pancreatitis or small bowel obstruction Medical Records I reviewed the patient's medical records. Lab Data I reviewed the patient's lab results. 06/06/23 20:55 06/06/23 20:55 Labs/Radiology: Radiology Impressions Abdomen/Pelvis CT 06/06/23 21:16 IMPRESSION: 1. Prominent fluid in the small bowel and ascending colon may reflect an enterocolitis. 2. Surgical suture line in the mid sigmoid colon without surrounding inflammatory changes. 14 mm cystic lesion is seen in the region of the surgical anastomosis in the wall, correlation with colonoscopy advised to assess for a possible mass, negative for surrounding inflammation. 3. Right deep pelvis 16 mm low-density nodule in the pericolonic fat suggestive of an enlarged lymph node, a fluid containing nonspecific cystic structure is also a consideration, of uncertain etiology. 4. Mild cardiomegaly. Laboratory Results WBC 9.38 10^3/uL (3.29-11.43) 06/06/23 20:55 RBC 5.95 10^6/uL (3.85-5.65) H 06/06/23 20:55 Hgb 13.90 g/dL (11.27-16.99) 06/06/23 20:55 Hct 43.8 % (37-53) 06/06/23 20:55 MCV 73.6 fl (82-101) L 06/06/23 20:55 MCH 23.4 pg (27-33) L 06/06/23 20:55 MCHC 31.7 g/dL (30-55) 06/06/23 20:55 RDW 17.3 % (12.1-15.1) H 06/06/23 20:55 Plt Count 259 10^3/cmm (157-399) 06/06/23 20:55 MPV 10.4 fL (7.4-10.4) 06/06/23 20:55 Neut % (Auto) 50.3 % 06/06/23 20:55 Lymph % (Auto) 33.8 % 06/06/23 20:55 [place] % (Auto) 9.0 % 06/06/23 20:55 Eos % (Auto) 5.7 % 06/06/23 20:55 Baso % (Auto) 1.0 % 06/06/23 20:55 Neut # (Auto) 4.73 10^3/uL (1.8-7.7) 06/06/23 20:55 Lymph # (Auto) 3.2 10^3/uL (0.8-4.8) 06/06/23 20:55 [place] # (Auto) 0.8 10^3/uL (0.2-0.9) 06/06/23 20:55 Eos # (Auto) 0.5 10^3/uL (0.0-0.8) 06/06/23 20:55 Baso # (Auto) 0.1 10^3/uL (0.0-0.1) 06/06/23 20:55 Nucleated RBC % (auto) 0 % 06/06/23 20:55 Nucleated RBCs # 0.0 /100WBC 06/06/23 20:55 PT 13.50 SECONDS (12.1-14.9) 06/06/23 20:55 INR 1.00 (0.8-1.2) 06/06/23 20:55 Sodium 137 mmol/L (136-145) 06/06/23 20:55 Potassium 3.8 mmol/L (3.5-5.1) 06/06/23 20:55 Chloride 102 mmol/L (98-107) 06/06/23 20:55 Carbon Dioxide 24 mmol/L (22-29) 06/06/23 20:55 Anion Gap 14.8 (5-19) 06/06/23 20:55 BUN 11 mg/dL (6-20) 06/06/23 20:55 Creatinine 1.1 mg/dL (0.7-1.2) 06/06/23 20:55 GFR Calculation 70.6 mL/min (90-130) L 06/06/23 20:55 Glucose 125 mg/dL (65-115) H 06/06/23 20:55 Calculated Osmolality 285 mOsm/kg (285-295) 06/06/23 20:55 Calcium 9.3 mg/dL (8.5-10.5) 06/06/23 20:55 Total Bilirubin 0.4 mg/dL (0.15-1.2) 06/06/23 20:55 AST 19 U/L (0-40) 06/06/23 20:55 ALT 8 U/L (0-41) 06/06/23 20:55 Alkaline Phosphatase 89 U/L (40-130) 06/06/23 20:55 Total Protein 7.3 g/dL (6.6-8.7) 06/06/23 20:55 Albumin 4.3 g/dL (3.5-5.2) 06/06/23 20:55 Globulin 3.0 g/dL (1.3-4.6) 06/06/23 20:55 Lipase 80 U/L (13-60) H 06/06/23 20:55 All radiology interpretation(s) finalized by discharge Discharge Plan Discharge Patient Disposition: Home Clinical Impression: Abdominal pain Condition: Stable Prescriptions: No Action (DME) cuff and collar brace See Rx Instructions .Route .MEDSUPPLY Qty: 1 0RF Rx Instructions: As directed lisinopril 20 mg tablet See Rx Instructions .ROUTE .COMPLEX Qty: 90 0RF Dose Instruction: Take 1 tablet by mouth once daily Rx Instructions: Take 1 tablet by mouth once daily pantoprazole 40 mg tablet,delayed release (DR/EC) See Rx Instructions .ROUTE .COMPLEX Qty: 90 0RF Dose Instruction: Take 1 tablet by mouth once daily Rx Instructions: Take 1 tablet by mouth once daily Discharge Orders: Discharge ED (Routine); Ordered 06/06/23 Ordered By: Gonzalo Umana Referrals: Inessa Coats DO [Primary Care Provider] - 1 week Patient Instructions: Abdominal Pain (ED) Activity Restrictions/Additional Instructions: Please follow-up with your family practice physician within the next 7 to 10 days for further evaluation and treatment as needed. Coding Level of Care Code ED Seaming Inspector for Janet Rubio
[2023-06-06 21:21] LABS: Alanine Aminotransferase 8 U/L (0-41); Albumin Level 4.3 g/dL (3.5-5.2); Alkaline Phosphatase 89 U/L (40-130); Anion Gap 14.8 (5-19); Aspartate Amino Transferase 19 U/L (0-40); Blood Urea Nitrogen 11 mg/dL (6-20); Calcium 9.3 mg/dL (8.5-10.5); Carbon Dioxide 24 mmol/L (22-29); Chloride 102 mmol/L (98-107); Glomerular Filtration Rate 70.6 mL/min (90-130); Glucose 125 mg/dL (65-115); Lipase 80 U/L (13-60); Osmolality Calculated 285 mOsm/kg (285-295); Potassium 3.8 mmol/L (3.5-5.1); Sodium 137 mmol/L (136-145); Total Bilirubin 0.4 mg/dL (0.15-1.2); Total Protein 7.3 g/dL (6.6-8.7)
[2023-06-06] MEDS: iohexol 350 mg/mL 500 mL Btl (per mL) IV (21:33)
[2023-06-06 22:44] VITALS: BP 125/83; PULSE 51; RESP 14; O2SAT 94
[2023-06-06 23:23] LABS: Add Urine Microscopic? YES; Bilirubin Urine Neg (Negative); Blood Urine Trace (Negative); Glucose Urine UA Norm (Normal); Ketones Urine Negative (Negative); Leukocyte Esterase Urine Negative (Negative); Nitrate Urine Negative (Negative); Protein Urine Trace (Negative); Specific Gravity, Urine 1.015 (1.005-1.030); Urine Appearance SL Hazy (CLEAR); Urine Color Yellow (Yellow); Urobilinogen Urine 1 mg/dL (Negative); pH Urine 5 (5-7)
[2023-06-06 23:24] LABS: Add Urine Culture? No; Bacteria Urine TRACE /hpf; Mucus Urine 2+ /hpf; RBC Urine 0-4 /hpf (0-2); Squamous Epithelial Cell Urine 0-4 /hpf (0-5)
== END 2023-06-06 23:25 | disposition home or self-care (01) ==
PROVIDERS: Emergency Provider Emergency Medicine; PCP Family Medicine
DX: R10.9 Unspecified abdominal pain (principal); Z72.0 Tobacco use; I51.7 Cardiomegaly; Z90.49 Acquired absence of other specified parts of digestive tract
CPT/HCPCS: 74177; 80053; 81001; 83690; 85025; 85610; 99285; Q9967

== ENCOUNTER 2023-10-17 17:33 | Emergency (ER) | payer OTHER, SELFPAY ==
--- NOTE | 2023-10-17 17:35 | XRR_ITS ---
PROCEDURE INFORMATION: Exam: XR Right Hand Exam date and time: 10/17/2023 5:57 PM Age: 52 years old Clinical indication: Injury or trauma; Fall; Other: Unknown TECHNIQUE: Imaging protocol: Radiologic exam of the right hand. Views: 3 or more views. COMPARISON: CR (UP EX, ) 10/17/2023 5:57 PM FINDINGS: Bones/joints: No evidence of fracture or subluxation. Radiocarpal articulation and carpal rows are grossly intact. Finger flexion of the lateral view limits detailed evaluation of the fingers. Soft tissues: Grossly unremarkable. XR/XR hand RT min 3V* [id number] IMPRESSION: 1. No evidence of fracture or subluxation.
[2023-10-17 17:41] VITALS: BP 159/83; PULSE 64; RESP 16; TEMP 36.6; O2SAT 98
--- NOTE | 2023-10-17 17:46 | XRR_ITS ---
PROCEDURE INFORMATION: Exam: XR Right Wrist Exam date and time: 10/17/2023 5:57 PM Age: 52 years old Clinical indication: Injury or trauma; Fall; Other: Unknown TECHNIQUE: Imaging protocol: Radiologic exam of the right wrist. Views: 3 or more views. COMPARISON: CR (UP EXM, ) 10/17/2023 5:57 PM FINDINGS: Bones/joints: No evidence of fracture or subluxation. Radiocarpal articulation and carpal rows are grossly intact. Moderate thumb CMC joint osteoarthritis. Question old distal ulnar shaft fracture. Soft tissues: Grossly unremarkable. XR/XR wrist RT min 3V* [id number] IMPRESSION: 1. No evidence of acute fracture or subluxation.
--- NOTE | 2023-10-17 17:47 | W.ED.EXTPRO ---
HPI - Extremity Problem General: Chief complaint: Extremity Injury, Upper Stated complaint: right hand pain Time Seen by Provider: 10/17/23 17:39 Source: patient Mode of arrival: ambulatory Limitations: no limitations History of Present Illness: 52-year-old male states he tripped fell on a hole and landed on his right hand and wrist. He states that hyperextended his hand and he is having pain to his mid hand and right wrist since the fall he rates pain a 7 out of 10 denies any other injuries denies any his head denies any elbow pain. Associated symptoms: Deny chest pain, fever(s) or rash Review of Systems Const: Denies: fever(s), chills, body aches or change in appetite ENMT: Denies: throat pain or dental pain Card: Denies: chest pain Resp: Denies: dyspnea GI: Denies: abdominal pain, nausea, vomiting or diarrhea : Denies: dysuria Musc: Reports: extremity pain; Denies: neck pain or back pain Skin/Breast: Denies: rash Neuro: Denies: headache(s) PFSH ED PFSH: Medical History Diverticulitis Fracture of T12 vertebra Surgical History History of colon resection Status post colonoscopy (01/25/22) History of cholecystectomy History of spinal surgery Family History Grandmother Diabetes Grandfather Cancer Sister Multiple sclerosis Father Degeneration of spine Social History Smoking and tobacco/nicotine status: current every day tobacco/nicotine user Quit status (tobacco/nicotine): not considering quitting Second hand smoke exposure: Yes Alcohol intake: former Substance/Drug Use: never Physical Exam Const: COMMON NORMALS: no acute distress, patient oriented x3 and healthy appearing HENMT: COMMON NORMALS: normocephalic and atraumatic HEAD & SCALP: normocephalic and atraumatic Neck/C-Spine: COMMON NORMALS: full ROM and supple Chest: COMMONS NORMALS: normal inspection of the chest Resp: COMMON NORMALS: normal respiratory effort Extremity: COMMON NORMALS: full ROM NARRATIVE EXTREMITY EXAM: Tenderness over right hand and wrist no obvious deformity does have bruising. Neuro: COMMON NORMALS: patient oriented x3, moves all extremities and no focal motor deficits Psych: COMMON NORMALS: mental status grossly normal, Normal thought process present and cooperative THOUGHT PROCESS: Normal thought process present Skin: COMMON NORMALS: no rashes or lesions noted and no wounds GENERAL SKIN EXAM: no rashes or lesions noted Course Vital Signs: Vital signs: Vital Signs Temperature 97.9 F 10/17/23 17:41 Pulse Rate 64 10/17/23 17:41 Respiratory Rate 16 10/17/23 17:41 Blood Pressure 159/83 10/17/23 17:41 Pulse Oximetry 98 10/17/23 17:41 Oxygen Delivery Me thod Room Air 10/17/23 17:41 MDM - Extremity (Nontraumatic) Medical Decision Making Presents with a right wrist sprain from a fall x-rays here are negative patient stable for discharge follow-up PCP return if worsening he understands agrees to plan Medical Records I reviewed the patient's medical records. Lab Data Radiology Impressions Hand X-Ray 10/17/23 17:35 IMPRESSION: 1. No evidence of fracture or subluxation. Wrist X-Ray 10/17/23 17:46 IMPRESSION: 1. No evidence of acute fracture or subluxation. All radiology interpretation(s) finalized by discharge Discharge Plan Discharge Patient Disposition: Home Clinical Impression: Sprain and strain of wrist Condition: Stable Prescriptions: No Action (DME) cuff and collar brace See Rx Instructions .Route .MEDSUPPLY Qty: 1 0RF Rx Instructions: As directed docusate sodium [Colace] 100 mg capsule 100 mg PO DAILY pantoprazole 40 mg tablet,delayed release (DR/EC) See Rx Instructions .ROUTE .COMPLEX Qty: 90 0RF Dose Instruction: Take 1 tablet by mouth once daily Rx Instructions: Take 1 tablet by mouth once daily lisinopril 20 mg tablet See Rx Instructions .ROUTE .COMPLEX Qty: 90 0RF Dose Instruction: TAKE 1 TABLET BY MOUTH ONCE DAILY . APPOINTMENT REQUIRED FOR FUTURE REFILLS Rx Instructions: TAKE 1 TABLET BY MOUTH ONCE DAILY . APPOINTMENT REQUIRED FOR FUTURE REFILLS Discharge Orders: Discharge ED (Routine); Ordered 10/17/23 Ordered By: Maria Isabel Padron Referrals: Inessa Coats DO [Primary Care Provider] - 4-7 days Discharge Diet: Advance as tolerated Discharge Activity: Resume usual activity Patient Instructions: Wrist Sprain (ED) Coding Level of Care Code ED Underwriting Director for Janet Rubio
[2023-10-17] MEDS: HYDROcodone-acetaminophen 7.5-325 mg Tablet 1 TAB PO (17:50)
== END 2023-10-17 18:36 | disposition home or self-care (01) ==
PROVIDERS: Emergency Provider Emergency Medicine; PCP Family Medicine
DX: S63.501A Unspecified sprain of right wrist, initial encounter (principal); S66.911A Strain of unspecified muscle, fascia and tendon at wrist and hand level, right hand, initial encounter; Z72.0 Tobacco use; W01.0XXA Fall on same level from slipping, tripping and stumbling without subsequent striking against object, initial encounter
CPT/HCPCS: 73110; 73130; 99283

== ENCOUNTER 2023-10-23 17:51 | Emergency (ER) | payer OTHER, SELFPAY ==
[2023-10-23 17:54] VITALS: BP 175/113; PULSE 72; RESP 16; TEMP 36.5; O2SAT 98
--- NOTE | 2023-10-23 19:19 | XRR_ITS ---
PROCEDURE INFORMATION: Exam: XR Right Hand Exam date and time: 10/23/2023 7:38 PM Age: 53 years old Clinical indication: Pain; Other: Prev fall; Additional info: Inj x 1 week, worsening pain and swelling TECHNIQUE: Imaging protocol: Radiologic exam of the right hand. Views: 3 or more views. COMPARISON: CR (UP EX, ) 10/17/2023 5:57 PM FINDINGS: Bones/joints: Normal. Soft tissues: Normal. XR/XR hand RT min 3V* [id number] IMPRESSION: No acute findings.
--- NOTE | 2023-10-23 19:19 | XRR_ITS ---
PROCEDURE INFORMATION: Exam: XR Right Wrist Exam date and time: 10/23/2023 7:40 PM Age: 53 years old Clinical indication: Pain; Wrist; Right; Patient HX: Prev fall; Additional info: Inj x1 week, worsening pain and swelling TECHNIQUE: Imaging protocol: Radiologic exam of the right wrist. Views: 3 or more views. COMPARISON: CR (UP EXM, ) 10/17/2023 5:57 PM FINDINGS: Bones/joints: Normal. Soft tissues: Normal. XR/XR wrist RT w scaphoid [id number] IMPRESSION: No acute findings.
[2023-10-23] MEDS: ketorolac 60 mg/2 mL INJ IM (19:35)
--- NOTE | 2023-10-23 19:35 | ED_ITS ---
Documented by User: MANUEL Cortez 10/23/23 20:36 HPI - Extremity Problem General: Chief complaint: Extremity Injury, Upper Stated complaint: right wrist pain Time Seen by Provider: 10/23/23 18:34 Source: patient Mode of arrival: ambulatory Limitations: no limitations History of Present Illness: Patient is a 53-year-old male presenting to the emergency department complaining of continuing right wrist pain. Patient's initial injury occurred a week ago, as he notes he caught himself with his right wrist when he fell. He was seen and evaluated in the emergency department at that time and had an x-ray that was negative for any obvious fractures or dislocations. However, he notes that the pain in his right wrist has significantly increased and he has noticed some swelling and decreased range of motion. He also states the pain is starting to radiate distally into his right index and middle finger. He has been taking Tylenol for pain, with no relief. He does not report any new injuries. No other symptoms to report at this time. He does note his pain is worse with palpation as well as with any range of motion. MD Complaint: joint swelling and joint pain Onset (ago): week(s) (1) Pain Consistency: constant Location: right Relieving factors: nothing Exacerbating factors: range of motion and palpation Associated symptoms: Reports no associated symptoms; Deny chest pain, fever(s) or rash Review of Systems General: Reports: 10 or more systems reviewed and unremarkable except in HPI and below Const: Denies: fever(s), chills or fatigue Eyes: Denies: change in vision ENMT: Denies: throat pain, ear or mastoid pain or nasal discharge Card: Denies: chest pain, palpitations, swelling of feet/ankles or lightheadedness Resp: Denies: dyspnea, productive cough or wheezing GI: Denies: abdominal pain, nausea, vomiting, diarrhea or constipation : Denies: flank pain, difficulty urinating, dysuria or urinary frequency Musc: Reports: extremity pain, joint pain and joint swelling; Denies: neck pain or back pain Skin/Breast: Denies: rash Neuro: Denies: headache(s), numbness in extremities or weakness in extremities [facility] ED PFSH: Medical History Diverticulitis Fracture of T12 vertebra Surgical History History of colon resection Status post colonoscopy (01/25/22) History of cholecystectomy History of spinal surgery Family History Grandmother Diabetes Grandfather Cancer Sister Multiple sclerosis Father Degeneration of spine Social History Smoking and tobacco/nicotine status: current every day tobacco/nicotine user Quit status (tobacco/nicotine): not considering quitting Second hand smoke exposure: Yes Alcohol intake: former Substance/Drug Use: never Physical Exam Const: COMMON NORMALS: no acute distress, patient oriented x3 and no limitati ons GENERAL APPEARANCE: cooperative, comfortable and well developed ORIENTATION/CONSCIOUSNESS: Yes awake, Yes oriented to person, Yes oriented to place and Yes oriented to time HENMT: COMMON NORMALS: normocephalic, atraumatic and hearing grossly normal bilaterally HEAD & SCALP: normocephalic and atraumatic Eye: COMMON NORMALS: Equal, round and reactive pupils present, EOMs intact bilaterally and conjunctivae normal CONJUNCTIVA: Yes conjunctivae normal PUPIL: Yes Equal, round and reactive pupils present Neck/C-Spine: COMMON NORMALS: full ROM, supple and no JVD Resp: COMMON NORMALS: normal respiratory effort, No retractions, No use of accessory muscles and clear to auscultation bilaterally AUSCULTATION: clear to auscultation bilaterally Cardio: COMMON NORMALS: no JVD, regular rate, regular rhythm, No clicks present (Cardio), No murmurs present (Cardio) and No rub (Cardio) RATE: regular rate RHYTHM: regular rhythm Extremity: NARRATIVE EXTREMITY EXAM: Severely limited range of motion about the right wrist and distal fingers. Mild amount of swelling noted over the thenar eminence. He does have moderate to severe tenderness to palpation about the anatomical snuffbox. Radial pulse intact. No proximal right forearm pain. Neuro: COMMON NORMALS: patient oriented x3, CN's II-XII intact bilaterally, moves all extremities, no focal motor deficits and no sensory deficits noted SENSORIUM/ORIENTATION: Yes oriented to person, Yes oriented to place and Yes oriented to time Psych: COMMON NORMALS: mental status grossly normal and Normal thought process present THOUGHT PROCESS: Normal thought process present Skin: COMMON NORMALS: no rashes or lesions noted GENERAL SKIN EXAM: no rashes or lesions noted Course Vital Signs: Vital signs: Vital Signs Temperature 97.7 F 10/23/23 17:54 Pulse Rate 66 10/23/23 19:56 Respiratory Rate 16 10/23/23 17:54 Blood Pressure 175/113 10/23/23 17:54 Pulse Oximetry 99 10/23/23 19:56 Oxygen Delivery Me thod Room Air 10/23/23 19:56 MDM - Extremity (Nontraumatic) Medical Decision Making This patient seen and evaluated for right wrist pain status post injury 1 week ago. He had previously been seen immediately following the injury and had negative workup. However he did returns stating the pain and swelling got worse. Repeat x-rays today, specifically with scaphoid view, did not demonstrate any fractures. I will put him in a splint however, and refer him to Ortho for further imaging modality. Return precautions given, to which patient understands. He will continue to use ibuprofen and Tylenol for pain as well as ice regularly. Lab Data Radiology Impressions Hand X-Ray 10/23/23 19:19 IMPRESSION: No acute findings. Wrist X-Ray 10/23/23 19:19 IMPRESSION: No acute findings. All radiology interpretation(s) finalized by discharge Discharge Plan Discharge Patient Disposition: Home Clinical Impression: Right wrist sprain Qualifiers: Encounter type: subsequent encounter Qualified Code(s): S63.501D - Unspecified sprain of right wrist, subsequent encounter Condition: Stable Prescriptions: No Action (DME) cuff and collar brace See Rx Instructions .Route .MEDSUPPLY Qty: 1 0RF Rx Instructions: As directed docusate sodium [Colace] 100 mg capsule 100 mg PO DAILY pantoprazole 40 mg tablet,delayed release (DR/EC) See Rx Instructions .ROUTE .COMPLEX Qty: 90 0RF Dose Instruction: Take 1 tablet by mouth once daily Rx Instructions: Take 1 tablet by mouth once daily lisinopril 20 mg tablet See Rx Instructions .ROUTE .COMPLEX Qty: 90 0RF Dose Instruction: TAKE 1 TABLET BY MOUTH ONCE DAILY . APPOINTMENT REQUIRED FOR FUTURE REFILLS Rx Instructions: TAKE 1 TABLET BY MOUTH ONCE DAILY . APPOINTMENT REQUIRED FOR FUTURE REFILLS Discharge Orders: Discharge ED (Routine); Ordered 10/23/23 Ordered By: Ric Major Referrals: Inessa Coats DO [Primary Care Provider] - Discharge Diet: Usual diet Discharge Activity: Limit activity as instructed Patient Instructions: Wrist Sprain (ED) Activity Restrictions/Additional Instructions: Follow-up with Ortho as discussed. Continue to use ice for added relief, as well as alternating ibuprofen and Tylenol. Leave splint on until follow-up as instructed. Return with any new or concerning symptoms you may have. Coding Level of Care Code ED Surgical Nurse Practitioner for [facility] Fwd Documented by User: Genaro Henry DO 10/24/23 07:22 HPI - Extremity Problem General: Chief complaint: Extremity Injury, Upper Stated complaint: right wrist pain Time Seen by Provider: 10/23/23 18:34 PFSH ED PFSH: Medical History Diverticulitis Fracture of T12 vertebra Surgical History History of colon resection Status post colonoscopy (01/25/22) History of cholecystectomy History of spinal surgery Family History Grandmother Diabetes Grandfather Cancer Sister Multiple sclerosis Father Degeneration of spine Social History Smoking and tobacco/nicotine status: current every day tobacco/nicotine user Quit status (tobacco/nicotine): not considering quitting Second hand smoke exposure: Yes Alcohol intake: former Substance/Drug Use: never Course Vital Signs: Vital signs: Vital Signs Temperature 97.7 F 10/23/23 17:54 Pulse Rate 66 10/23/23 19:56 Respiratory Rate 16 10/23/23 17:54 Blood Pressure 175/113 10/23/23 17:54 Pulse Oximetry 99 10/23/23 19:56 Oxygen Delivery Me thod Room Air 10/23/23 19:56 MDM - Extremity (Nontraumatic) Medical Decision Making This patient seen and evaluated for right wrist pain status post injury 1 week ago. He had previously been seen immediately following the injury and had negative workup. However he did returns stating the pain and swelling got worse. Repeat x-rays today, specifically with scaphoid view, did not demonstrate any fractures. I will put him in a splint however, and refer him to Ortho for further imaging modality. Return precautions given, to which patient understands. He will continue to use ibuprofen and Tylenol for pain as well as ice regularly. Chart reviewed Lab Data Radiology Impressions Hand X-Ray 10/23/23 19:19 IMPRESSION: No acute findings. Wrist X-Ray 10/23/23 19:19 IMPRESSION: No acute findings. Discharge Plan Discharge Patient Disposition: Home Clinical Impression: Right wrist sprain Qualifiers: Encounter type: subsequent encounter Qualified Code(s): S63.501D - Unspecified sprain of right wrist, subsequent encounter Condition: Stable Prescriptions: No Action (DME) cuff and collar brace See Rx Instructions .Route .MEDSUPPLY Qty: 1 0RF Rx Instructions: As directed docusate sodium [Colace] 100 mg capsule 100 mg PO DAILY pantoprazole 40 mg tablet,delayed release (DR/EC) See Rx Instructions .ROUTE .COMPLEX Qty: 90 0RF Dose Instruction: Take 1 tablet by mouth once daily Rx Instructions: Take 1 tablet by mouth once daily lisinopril 20 mg tablet See Rx Instructions .ROUTE .COMPLEX Qty: 90 0RF Dose Instruction: TAKE 1 TABLET BY MOUTH ONCE DAILY . APPOINTMENT REQUIRED FOR FUTURE REFILLS Rx Instructions: TAKE 1 TABLET BY MOUTH ONCE DAILY . APPOINTMENT REQUIRED FOR FUTURE REFILLS Discharge Orders: Discharge ED (Routine); Ordered 10/23/23 Ordered By: Ric Major Referrals: Inessa Coats DO [Primary Care Provider] - Discharge Diet: Usual diet Discharge Activity: Limit activity as instructed Patient Instructions: Wrist Sprain (ED) Activity Restrictions/Additional Instructions: Follow-up with Ortho as discussed. Continue to use ice for added relief, as well as alternating ibuprofen and Tylenol. Leave splint on until follow-up as instructed. Return with any new or concerning symptoms you may have. Coding Level of Care Code ED Surgical Nurse Practitioner for Janet Rubio
[2023-10-23 19:56] VITALS: PULSE 66; O2SAT 99
--- NOTE | 2023-10-26 12:18 | DCPLANNER ---
Called Ortho and spoke with Rosie, Rosie said she would call the patient and arrange an appointment date and time.
== END 2023-10-23 21:36 | disposition home or self-care (01) ==
PROVIDERS: Emergency Provider Physician Assistant; PCP Family Medicine
DX: S63.501A Unspecified sprain of right wrist, initial encounter (principal); Z72.0 Tobacco use; W19.XXXA Unspecified fall, initial encounter
CPT/HCPCS: 73110; 73130; 96372; 99284; J1885

== ENCOUNTER → 2023-10-30 10:56 | Outpatient (BNVA) | payer OTHER, SELFPAY | PROVIDERS: PCP Family Medicine; Referring Provider Physician Assistant; Visit Provider Orthopaedic Surgery | DX: S63.501D Unspecified sprain of right wrist, subsequent encounter (principal); W01.0XXD Fall on same level from slipping, tripping and stumbling without subsequent striking against object, subsequent encounter | CPT/HCPCS: 73110 ==

== ENCOUNTER 2023-10-30 15:14 | Outpatient (CLI) | payer OTHER, SELFPAY | END 2023-10-30 15:15 | disposition home or self-care (01) | LOC: SPT 15:14 | PROVIDERS: PCP Family Medicine; Visit Provider Orthopaedic Surgery | DX: Z46.89 Encounter for fitting and adjustment of other specified devices (principal); S62.501D Fracture of unspecified phalanx of right thumb, subsequent encounter for fracture with routine healing; X58.XXXD Exposure to other specified factors, subsequent encounter | CPT/HCPCS: L3908 ==

== ENCOUNTER 2023-11-02 11:35 | Outpatient (CLI) | payer OTHER, SELFPAY ==
--- NOTE | 2023-11-02 11:45 | MRR_ITS ---
PROCEDURE INFORMATION: Exam: MR Right Upper Extremity Other Than Joint Without Contrast; Hand Exam date and time: 11/02/2023 11:50 AM Age: 53 years old Clinical indication: Pain and injury or trauma; Fall; Injury date: 10/01/23; Injury details: Patient fell on injuring/jarring the right hand/wrist area/unable to bend or move the index finger; Additional info: Right hand/wrist sprain TECHNIQUE: Imaging protocol: MR of the right upper extremity without contrast. Exam focused on the hand. COMPARISON: CR (UP EXM, ) 10/23/2023 7:38 PM FINDINGS: Bones/joints: Alignment is normal. No visible fracture. No joint effusion. No bone marrow edema. Collateral ligaments of digits: The radial collateral ligament at the 2nd metacarpophalangeal joint is ill-defined is and demonstrates surrounding increased T2 signal intensity at its proximal dorsal margin, consistent with tear. The ulnar collateral ligament is also slightly irregular and may be torn. The 3rd through 5th digital collateral ligaments are normal. Flexor compartment tendons: Digital flexor tendons are intact. Extensor compartment tendons: Digital extensor tendons are intact. Soft tissues: There is diffuse edema surrounding the 2nd metacarpophalangeal joint, greater laterally. MR/MR hand RT wo con* [id number] IMPRESSION: 1. Radial collateral ligament tear at the 2nd metacarpophalangeal joint. 2. Subtly irregular ulnar collateral ligament at the 2nd metacarpophalangeal joint. Possible tear. 3. Intact flexor and extensor tendons.
== END 2023-11-02 11:36 | disposition home or self-care (01) ==
LOC: RAD 11:35
PROVIDERS: PCP Family Medicine; Visit Provider Orthopaedic Surgery
DX: S63.501D Unspecified sprain of right wrist, subsequent encounter (principal); W19.XXXD Unspecified fall, subsequent encounter
CPT/HCPCS: 73218

== ENCOUNTER 2023-11-13 15:22 | Outpatient (CLI) | payer OTHER, SELFPAY | END 2023-11-13 15:23 | disposition home or self-care (01) | LOC: SPT 15:22 | PROVIDERS: PCP Family Medicine; Visit Provider Orthopaedic Surgery | DX: Z46.89 Encounter for fitting and adjustment of other specified devices (principal); M79.641 Pain in right hand | CPT/HCPCS: 97760; L3807 ==

== ENCOUNTER 2024-01-08 12:34 | Emergency (ER) | payer OTHER, SELFPAY ==
[2024-01-08 12:48] VITALS: BP 172/142; PULSE 96; RESP 20; TEMP 36.8; O2SAT 96; BMI 27.8
--- NOTE | 2024-01-08 12:59 | CTR_ITS ---
PROCEDURE INFORMATION: Exam: CT Abdomen And Pelvis With Contrast Exam date and time: 01/08/2024 1:34 PM Age: 53 years old Clinical indication: Other: Rectal bleeding; Prior surgery; Surgery date: 6+ months; Surgery type: Partial removal of colon (diverticulosis), gb, lumbar surgery TECHNIQUE: Imaging protocol: Computed tomography of the abdomen and pelvis with contrast. Radiation optimization: All CT scans at this facility use at least one of these dose optimization techniques: automated exposure control; mA and/or kV adjustment per patient size (includes targeted exams where dose is matched to clinical indication); or iterative reconstruction. Contrast material: OMNI 350; Contrast volume: 100 ml; Contrast route: INTRAVENOUS (IV); COMPARISON: CT abdomen pelvis w con* [id number] 06/06/2023 9:30 PM RADIATION DOSE METRICS: Total DLP (mGy-cm): 727.53 FINDINGS: Lungs: No significant infiltrate or effusion is seen within the visualized lung bases. Liver: Normal. No mass. Gallbladder and biliary ducts: Gallbladder is not seen, previous cholecystectomy. No biliary ductal dilatation. Pancreas: Normal. No ductal dilation. Spleen: Normal. No splenomegaly. Adrenal glands: Normal. No mass. Kidneys and ureters: Tiny rounded hypodense focus upper pole cortex of the right kidney, too small to characterize and suggestive of tiny renal cyst when correlated with prior exam. Mild extrarenal pelvis on the left when correlated with prior exam, as well. Kidneys are otherwise unremarkable. No obstructive uropathy or perinephric stranding. Stomach and bowel: Postsurgical change with suture anastomosis mid to distal sigmoid colon level, as noted with prior exam. 14 mm rounded fluid or cystic focus in association with sigmoid colon anastomosis is seen, unchanged from prior exam. An additional rounded to oval-shaped fluid/cystic focus is seen in the pericolonic fat on the right at the suture anastomosis level, as seen with prior exam, though measuring approximately 20 mm with today's exam, approximately 4 mm larger in size than previous exam. No surrounding mesenteric stranding to indicate inflammation. Possible large diverticulum from the sigmoid colon. Possible chronic postsurgical change such as seroma though slight increase in size would not favor. An enlarged lymph node or other nonspecific cystic structure are considerations as noted with prior exam. Perirectal fat planes appear unremarkable. No pericolonic mesenteric stranding or CT findings to indicate focal inflammatory change or diverticulitis. Suggestion of scattered mild colonic submucosal edema and particularly on the coronal images. Some component may be related to incomplete distension as well. No bowel dilatation or obstruction. Appendix: No evidence of appendicitis. Intraperitoneal space: No ascites. No free air. Vasculature: [id number] atherosclerotic vascular disease of the abdominal aorta and iliac arteries, as well as proximal left renal artery, with nonaneurysmal abdominal aorta. Major vascular structures appear patent. Lymph nodes: No significant periaortic or retroperitoneal lymph node enlargement or lymphadenopathy. Urinary bladder: Unremarkable as visualized. Reproductive: Unremarkable as visualized. Bones/joints: Prior vertebroplasty T12 vertebra with old compression deformity. Soft tissues: No acute findings. CT/CT abdomen pelvis w con* [id number] IMPRESSION: 1. Previous cholecystectomy. 2. Postsurgical change with sutural anastomosis mid to distal sigmoid colon within the pelvis, including chronic 14 mm cystic lesion of the colon at the sutural anastomosis as noted with prior exam. An additional rounded to oval-shaped fluid/cystic focus in the right pericolonic fat at the suture anastomosis level is chronic with prior exam, though slightly more prominent in size as noted above. No surrounding inflammatory changes at this level. 3. Coronal images suggest scattered mild colonic submucosal edema, again without focal inflammatory changes. Consider inflammation/colitis, nonspecific. COMMENTS: Consistent with the [employer]'s Incidental Findings Committee white paper (J Am Tim Radiol 2018): Any incidental renal lesion less than 1 cm or classified as too small to characterize, or any incidental cystic renal lesion characterized as simple-appearing, is likely benign. No follow-up imaging is recommended for these lesions per consensus recommendations based on imaging criteria.
--- NOTE | 2024-01-08 13:04 | ED_ITS ---
HPI - GI Bleed 2 General: Chief complaint: GI Bleed Stated complaint: bleeding out of anus Time Seen by Provider: 01/08/24 12:49 Source: patient Mode of arrival: ambulatory Limitations: no limitations History of Present Illness: 53-year-old male has had a history of a colectomy in the past roughly 1 year ago for diverticulitis states he had a history of hemorrhoids as well states that over the last 3 to 4 days has been having large amounts of bright red blood with bowel movements. He denies any abdominal pain patient denies any fevers denies any worsening proving factors he is not on any blood thinners Associated symptoms: Denies abdominal pain, chills, fever(s), headache(s), nausea, rash or vomiting Review of Systems 2 Const: Denies: fever(s), chills, body aches or change in appetite Eyes: Denies: blurry vision or eye discomfort ENMT: Denies: throat pain or dental pain Card: Denies: chest pain Resp: Denies: dyspnea GI: Reports: hematochezia; Denies: abdominal pain, nausea, vomiting or diarrhea Musc: Denies: neck pain or back pain Skin/Breast: Denies: rash Neuro: Denies: headache(s) PFSH ED 2 PFSH: Medical History Diverticulitis Fracture of T12 vertebra Surgical History History of colon resection Status post colonoscopy (01/25/22) History of cholecystectomy History of spinal surgery Family History Grandmother Diabetes Grandfather Cancer Sister Multiple sclerosis Father Degeneration of spine Social History Smoking and tobacco/nicotine status: current every day tobacco/nicotine user Quit status (tobacco/nicotine): not considering quitting Second hand smoke exposure: Yes Alcohol intake: former Substance/Drug Use: never Physical Exam 2 Const: COMMON NORMALS: no acute distress, patient oriented x3 and healthy appearing HENMT: COMMON NORMALS: normocephalic and atraumatic HEAD & SCALP: n ormocephalic and atraumatic Neck/C-Spine: COMMON NORMALS: full ROM and supple Chest: COMMONS NORMALS: normal inspection of the chest Resp: COMMON NORMALS: normal respiratory effort Cardio: COMMON NORMALS: regular rate, regular rhythm and No murmurs present (Cardio) RATE: regular rate RHYTHM: regular rhythm GI: COMMON NORMALS: Normal to inspection, nondistended, normoactive bowel sounds present, Soft to palpation, non-tender and no masses PALPATION: Yes Soft to palpation OTHER: Multiple hemorrhoids noted with bright red blood Extremity: COMMON NORMALS: normal to inspection and full ROM Neuro: COMMON NORMALS: patient oriented x3, moves all extremities and no focal motor deficits Psych: COMMON NORMALS: mental status grossly normal, Normal thought process present and cooperative THOUGHT PROCESS: Normal thought process present Skin: COMMON NORMALS: no rashes or lesions noted and no wounds GENERAL SKIN EXAM: no rashes or lesions noted Course 2 Vital Signs: Vital signs: Vital Signs Temperature 98.3 F 01/08/24 13:07 Pulse Rate 91 01/08/24 14:25 Respiratory Rate 18 01/08/24 14:25 Blood Pressure 133/84 01/08/24 14:25 Pulse Oximetry 96 01/08/24 14:25 Oxygen Delivery Me thod Room Air 01/08/24 14:25 MDM - GI Bleed Medical Decision Making Patient presents here with rectal bleeding likely from his hemorrhoids CT showed a possible colitis we will start him on antibiotics we will start him on Proctofoam and Colace we will get him follow-up with general surgery return if worsening. Medical Records I reviewed the patient's medical records. Lab Data I reviewed the patient's lab results. 01/08/24 13:02 01/08/24 13:02 Radiology Impressions Abdomen/Pelvis CT 01/08/24 12:59 IMPRESSION: 1. Previous cholecystectomy. 2. Postsurgical change with sutural anastomosis mid to distal sigmoid colon within the pelvis, including chronic 14 mm cystic lesion of the colon at the sutural anastomosis as noted with prior exam. An additional rounded to oval-shaped fluid/cystic focus in the right pericolonic fat at the suture anastomosis level is chronic with prior exam, though slightly more prominent in size as noted above. No surrounding inflammatory changes at this level. 3. Coronal images suggest scattered mild colonic submucosal edema, again without focal inflammatory changes. Consider inflammation/colitis, nonspecific. COMMENTS: Consistent with the [employer]'s Incidental Findings Committee white paper (J Am Tim Radiol 2018): Any incidental renal lesion less than 1 cm or classified as too small to characterize, or any incidental cystic renal lesion characterized as simple-appearing, is likely benign. No follow-up imaging is recommended for these lesions per consensus recommendations based on imaging criteria. Laboratory Results WBC 8.01 10^3/uL (3.29-11.43) 01/08/24 13:02 RBC 6.32 10^6/uL (3.85-5.65) H 01/08/24 13:02 Hgb 16.00 g/dL (11.27-16.99) 01/08/24 13:02 Hct 50.0 % (37-53) 01/08/24 13:02 MCV 79.1 fl (82-101) L 01/08/24 13:02 MCH 25.3 pg (27-33) L 01/08/24 13:02 MCHC 32.0 g/dL (30-55) 01/08/24 13:02 RDW 15.0 % (12.1-15.1) 01/08/24 13:02 Plt Count 236 10^3/cmm (157-399) 01/08/24 13:02 MPV 10.4 fL (7.4-10.4) 01/08/24 13:02 Neut % (Auto) 56.0 % 01/08/24 13:02 Lymph % (Auto) 29.3 % 01/08/24 13:02 Garrett % (Auto) 8.1 % 01/08/24 13:02 Eos % (Auto) 5.2 % 01/08/24 13:02 Baso % (Auto) 1.2 % 01/08/24 13:02 Neut # (Auto) 4.47 10^3/uL (1.8-7.7) 01/08/24 13:02 Lymph # (Auto) 2.4 10^3/uL (0.8-4.8) 01/08/24 13:02 Garrett # (Auto) 0.7 10^3/uL (0.2-0.9) 01/08/24 13:02 Eos # (Auto) 0.4 10^3/uL (0.0-0.8) 01/08/24 13:02 Baso # (Auto) 0.1 10^3/uL (0.0-0.1) 01/08/24 13:02 Nucleated RBC % (auto) 0 % 01/08/24 13:02 Nucleated RBCs # 0.0 /100WBC 01/08/24 13:02 PT 12.90 SECONDS (12.1-14.9) 01/08/24 13:02 INR 0.94 (0.8-1.2) 01/08/24 13:02 Sodium 138 mmol/L (136-145) 01/08/24 13:02 Potassium 4.1 mmol/L (3.5-5.1) 01/08/24 13:02 Chloride 102 mmol/L (98-107) 01/08/24 13:02 Carbon Dioxide 22 mmol/L (22-29) 01/08/24 13:02 Anion Gap 18.1 (5-19) 01/08/24 13:02 BUN 10 mg/dL (6-20) 01/08/24 13:02 Creatinine 1.1 mg/dL (0.7-1.2) 01/08/24 13:02 GFR Calculation 70.3 mL/min (90-130) L 01/08/24 13:02 Glucose 114 mg/dL (65-115) 01/08/24 13:02 Calculated Osmolality 286 mOsm/kg (285-295) 01/08/24 13:02 Calcium 9.3 mg/dL (8.5-10.5) 01/08/24 13:02 Total Bilirubin 0.6 mg/dL (0.15-1.2) 01/08/24 13:02 AST 21 U/L (0-40) 01/08/24 13:02 ALT 11 U/L (0-41) 01/08/24 13:02 Alkaline Phosphatase 98 U/L (40-130) 01/08/24 13:02 Total Protein 8.2 g/dL (6.6-8.7) 01/08/24 13:02 Albumin 4.6 g/dL (3.5-5.2) 01/08/24 13:02 Globulin 3.6 g/dL (1.3-4.6) 01/08/24 13:02 Lipase 34 U/L (13-60) 07/09/24 13:02 All radiology interpretation(s) finalized by discharge Discharge Plan Discharge Patient Disposition: Home Clinical Impression: Hemorrhoids, Acute lower GI bleeding, Colitis Condition: Stable Prescriptions: New metronidazole 500 mg tablet 500 mg PO Q8H 7 Days Qty: 21 0RF Cipro 500 mg tablet 500 mg PO BID Qty: 14 0RF Proctosol HC 2.5 % cream with perineal applicator 1 applic MA Q8H PRN (Reason: hemorrhoids) 21 Days Qty: 30 0RF Colace 100 mg capsule 100 mg PO BID Qty: 20 0RF No Action (DME) cuff and collar brace See Rx Instructions .Route .MEDSUPPLY Qty: 1 0RF Rx Instructions: As directed (DME) cockup splint See Rx Instructions .Route .MEDSUPPLY Qty: 1 0RF Rx Instructions: As directed (DME) radial gutter brace See Rx Instructions .Route .MEDSUPPLY Qty: 1 0RF Rx Instructions: As directed lisinopril 20 mg tablet 20 mg PO DAILY pantoprazole 40 mg tablet,delayed release (DR/EC) 40 mg PO DAILY Discharge Orders: Discharge ED (Routine); Ordered 01/08/24 Ordered By: Maria Isabel Padron Referrals: Ric Mays MD [Physician] - 4-7 days Inessa Coats DO [Primary Care Provider] - Discharge Diet: Advance as tolerated Discharge Activity: Resume usual activity Patient Instructions: Hemorrhoids (ED) Coding Level of Care Code ED Reconstructive Surgeon for Janet Rubio
[2024-01-08 13:07] VITALS: BP 172/142; PULSE 96; RESP 20; TEMP 36.8; O2SAT 96
[2024-01-08 13:19] LABS: Basophils # 0.1 10^3/uL (0.0-0.1); Basophils % 1.2 %; Eosinophils # 0.4 10^3/uL (0.0-0.8); Eosinophils % 5.2 %; Lymphocytes # 2.4 10^3/uL (0.8-4.8); Lymphocytes % 29.3 %; Mean Corpuscular Hemoglobin 25.3 pg (27-33); Mean Corpuscular Volume 79.1 fl (82-101); Mean Platelet Volume 10.4 fL (7.4-10.4); Monocytes # 0.7 10^3/uL (0.2-0.9); Monocytes % 8.1 %; Neutrophils # 4.47 10^3/uL (1.8-7.7); Nucleated Red Blood Cells % 0 %; Platelet Count 236 10^3/cmm (157-399); Red Blood Count 6.32 10^6/uL (3.85-5.65); White Blood Count 8.01 10^3/uL (3.29-11.43)
[2024-01-08] MEDS: tranexamic acid 1,000 MG/100 ML PREMIX 600 MG IV ×2 (13:24→14:19)
[2024-01-08 13:32] LABS: INR 0.94 (0.8-1.2)
[2024-01-08 13:34] LABS: Alanine Aminotransferase 11 U/L (0-41); Albumin Level 4.6 g/dL (3.5-5.2); Alkaline Phosphatase 98 U/L (40-130); Anion Gap 18.1 (5-19); Aspartate Amino Transferase 21 U/L (0-40); Blood Urea Nitrogen 10 mg/dL (6-20); Calcium 9.3 mg/dL (8.5-10.5); Carbon Dioxide 22 mmol/L (22-29); Chloride 102 mmol/L (98-107); Creatinine Clr Calc Pharmacy 90.5191; Globulin 3.6 g/dL (1.3-4.6); Glomerular Filtration Rate 70.3 mL/min (90-130); Glucose 114 mg/dL (65-115); Lipase 34 U/L (13-60); Osmolality Calculated 286 mOsm/kg (285-295); Potassium 4.1 mmol/L (3.5-5.1); Sodium 138 mmol/L (136-145); Total Bilirubin 0.6 mg/dL (0.15-1.2); Total Protein 8.2 g/dL (6.6-8.7)
[2024-01-08] MEDS: iohexol 350 mg/mL 500 mL Btl (per mL) IV (13:38)
[2024-01-08 14:25] VITALS: BP 133/84; PULSE 91; RESP 18; O2SAT 96
--- NOTE | 2024-01-09 11:24 | DCPLANNER ---
message sent to gen surg for er f/u
== END 2024-01-08 15:34 | disposition home or self-care (01) ==
PROVIDERS: Emergency Provider Emergency Medicine; PCP Family Medicine
DX: K52.9 Noninfective gastroenteritis and colitis, unspecified (principal); K64.9 Unspecified hemorrhoids; Z72.0 Tobacco use
CPT/HCPCS: 74177; 80053; 83690; 85025; 85610; 96365; 96366; 99285; Q9967

== ENCOUNTER 2024-02-25 10:14 | Day surgery (SDC) | payer OTHER, SELFPAY ==
[2024-02-25] VITALS (14 sets, daily range): BP systolic 148–173; BP diastolic 95–111; PULSE 52–92; RESP 17–22; TEMP 36.1–36.4; O2SAT 94–100; BMI 28.4
[2024-02-25] MEDS: sodium chloride 0.9% 1,000 ML 30 ML IV (10:35)
--- NOTE | 2024-02-25 10:47 | P.HPUD_ITS ---
Surgery/Procedure H&P Update DATE OF PROCEDURE: February 25, 2024 DATE H&P PERFORMED: 02/20/24 H&P UPDATE INFORMATION: I have reviewed H&P completed within last 30 days, I have examined patient prior to procedure, No changes to prior documentation and H&P is in [facility] [place] EMR on date indicated PLANNED PROCEDURE: Operation Date: 02/25/24 12:05 Proposed Procedures p Exam Under Anesthesia 65192, 34456, 89206, K64.9(Not Applicable) - Ric Mays MD s Hemorrhoidectomy(Not Applicable) - Ric Mays MD
--- NOTE | 2024-02-25 11:19 | ANES.PREANE2 ---
Pre-Anesthetic Assessment Height/Weight: Height 5 ft 11 in Weight 204 lb Temp Pulse Resp BP Pulse Ox O2 Del Method 97.0 F L 70 18 157/105 94 Room Air 02/25/24 10:02/25/24 10:02/25/24 10:02/25/24 10:02/25/24 10:02/25/24 10:25 Operation Date: 02/25/24 12:05 Proposed Procedures p Exam Under Anesthesia 19797, 94979, 23033, K64.9(Not Applicable) - Ric Mays MD s Hemorrhoidectomy(Not Applicable) - Ric Mays MD Last intake: Intake Last Liquid Date 02/24/24 Last Liquid Time 21:30 Last Solid Date 02/24/24 Last Solid Time 21:30 Social Tobacco and No alcohol Exam alert, oriented x 3, clear to auscultation bilaterally and regular rate & rhythm Airway Submandibular: within normal limits Cervical ROM: within normal limits Mallampati: Class II Dentition: false Anesthetic Plan ASA status: 2 Anesthesia: General Other: No prior issues with anesthesia NPO since midnight Hypertension controlled on lisinopril GERD controlled with pantoprazole Current smoker Labs reviewed from December Prior echo demonstrating EF 55 to 60%. Negative stress test 2022 METs greater than 4 Plan for general GETA Medications/Allergies Home Medications Medication Instructions Recorded Confirmed Last Taken Type cuff and collar brace #1 ea 06/29/22 02/20/24 Unknown Rx cockup splint #1 ea 10/30/23 02/20/24 Unknown Rx radial gutter brace #1 ea 11/13/23 02/20/24 Unknown Rx docusate sodium 100 mg capsule 100 mg PO BID #20 caps 01/08/24 02/22/24 02/24/24 Rx (Colace) lisinopril 20 mg tablet 20 mg PO DAILY 01/08/24 02/22/24 02/24/24 History pantoprazole 40 mg tablet,delayed 40 mg PO DAILY 01/08/24 02/22/24 02/24/24 History release Allergies Allergy/AdvReac Type Severity Reaction Status Date / Time atorvastatin [From Lipitor] Allergy ADR-Vomitin Verified 02/22/24 12:18 g morphine Allergy ALGY-Fever Verified 02/22/24 12:18 Current Medications Generic Name Dose Route Start Last Admin Trade Name Freq PRN Reason Stop Dose Admin Sodium Chloride 1,000 mls @ 30 mls/hr 02/25/24 10:30 02/25/24 10:35 Sodium Chloride 0.9% IV 02/26/24 10:29 30 mls/hr .Q24H SOHAN Administration PFSH Anesthesia Medical History Diverticulitis Fracture of T12 vertebra Surgical History History of colon resection Status post colonoscopy (01/25/22) History of cholecystectomy History of spinal surgery Family History Grandmother Diabetes Grandfather Cancer Sister Multiple sclerosis Father Degeneration of spine Social History Smoking and tobacco/nicotine status: current every day tobacco/nicotine user Quit status (tobacco/nicotine): not considering quitting Second hand smoke exposure: Yes Alcohol intake: former Substance/Drug Use: never Data Anesthesia Cardiac Studies: Echocardiogram 04/19/22 Sestamibi Stress Test (Cardiology) 11/13/22
[2024-02-25] MEDS: ceFAZolin 2,000 mg SDV 2000 MG IVP (12:41)
[2024-02-25] MEDS: BUPivacaine 0.25% INJ 10 mL INJECTION (13:15)
[2024-02-25] MEDS: lidocaine-epi 1% 20 mL INJ INJECTION (13:15)
[2024-02-25] MEDS: lidocaine 2% jelly 1 APPLIC/6 ML TUBE TOPICAL (13:17)
[2024-02-25] MEDS: thrombin 5,000 unit SDV 5000 UNIT XX (13:51)
--- NOTE | 2024-02-25 14:43 | PM.OP ---
Operative Report Date of procedure: February 25, 2024 Pre-op diagnosis: Internal hemorrhoids Post-op diagnosis: Same Post-op findings: There was very large internal hemorrhoids from anterior and bilateral hemorrhoidal columns. Procedure done: 3 rodrigue Hemorrhoidectomy and exam under anesthesia Specimens removed/disposition: Hemorrhoids Surgeon: Ric Mays MD [employer] Re[employer] Operator: virgil or stAFF Estimated blood loss: 20 Brief History: 53-year-old male who has been complaining of significant hemorrhoidal bleeding over the past year, presented to my clinic for evaluation for possible hemorrhoidectomy. After discussion of all risk and benefits as documented in my preop note we decided to proceed to the OR for open hemorrhoidectomy. Procedure: Patient was brought into the OR, he was placed in a supine position. General anesthesia was given. The patient was then flipped to a prone jackknife position. The perianal region was prepped and draped in the usual sterile fashion. Timeout was conducted. Local anesthesia was infiltrated around the anal canal. Exam under anesthesia was done first by digital examination then by inserting a Hill-Landaverde retractor in the anal canal, very large hemorrhoidal columns were noted left lateral was the biggest followed by right lateral and then a small anterior column. I proceeded to identify the left lateral column hemorrhoid and elevated with an Allis clamp. I then used a #3-0 chromic to ligate the venous outflow. I kept this suture in place allow me to close the mucosa later. I then used electrocautery to excise the hemorrhoidal column and started that the perianal margin. I took careful consideration of preserving the internal and external expanders, I did this by blunt dissection of the hemorrhoidal column from the surrounding tissue using a Ray-Beto. Once the hemorrhoid was excised and transected I proceeded to close the mucosa using a #3-0 chromic that we previously saved. I then proceeded to elevate the anterior hemorrhoid, this MRI was a smaller, I was able to easily ligate the venous outflow with #3-0 chromic antecubital 3 committed touch to allow me to close the mucosa. I then excised the hemorrhoid with electrocautery taking careful consideration and preserving the sphincter. The wound was then closed with a #3-0 chromic. I then placed my attention to the right lateral hemorrhoidal column. I grasped the hemorrhoid and ligated the outflow. After ligating the outflow with #3-0 chromic I proceeded to transect the hemorrhoid using electrocautery starting at the level of the anal margin. I did this carefully and then I used a wet Ray-Beto to bluntly dissect the mucosa away from the sphincter structures. The hemorrhoid was then transected and then I used a #3-0 chromic to close the mucosal defect. Some remaining hemorrhoidal tissue was noted posterior to the area of excision on the right side but due to concerns of creating possible stenosis with more aggressive dissection I decided to stop at this point the procedure patient can have surgical excision of the hemorrhoid column as needed in the future. I washed the cavity with saline and then I proceeded to place 2% lidocaine gel in addition use thrombin in the Surgifoam and inserted in the anal canal to prevent bleeding after the surgery. At the end of the procedure all counts were correct, the patient tolerated well the procedure and was transferred to the PACU in stable condition.
[2024-02-25] MEDS: meperidine 50 mg/mL INJ 12.5 MG IVP (14:52)
[2024-02-25] MEDS: hyDRALAzine 20 mg/mL INJ 1 mL 5 MG IVP (15:08)
[2024-02-25] MEDS: oxyCODONE 5 mg IR Tab/Cap PO (16:15)
--- NOTE | 2024-02-25 16:23 | SUR.PHASEII ---
Per john, lidocaine hcl jelly unavailable and they cannot get it,notified dr doe. new order for what they have in stock received which is lidocaine 5% ointment apply tid #33 gm 3 RF. Patient aware
--- NOTE | 2024-02-25 16:35 | ANE.PACU2 ---
Inpatient post-anesthesia follow up: Airway intact: Yes Vital signs: Temperature 97.5 F Pulse Rate 57 Respiratory Rate 18 Blood Pressure 148/96 Pulse Oximetry 98 Oxygen Delivery Me thod Room Air Oxygen Flow Rate 6 Fraction of Inspir ed Oxygen Hydration adequate: Yes Nausea and vomiting: No Pain level: 1 Mental status: Baseline
== END 2024-02-25 16:37 | disposition home or self-care (01) ==
PROVIDERS: PCP Family Medicine; Visit Provider Surgery
PROC: (CPT 46250; principal; 2024-02-25 11:55)
PROC: (CPT 46250; 2024-02-25 11:55)
DX: K64.8 Other hemorrhoids (principal); I10 Essential (primary) hypertension; K21.9 Gastro-esophageal reflux disease without esophagitis; F17.200 Nicotine dependence, unspecified, uncomplicated
CPT/HCPCS: 46250; 88304; J0360; J0690; J1100; J1170; J1885; J2175; J2250; J2405; J2704; J2710; J3010; J3490; J7030

== ENCOUNTER → 2024-05-16 09:05 | Outpatient (BNVA) | payer OTHER, SELFPAY | PROVIDERS: PCP Family Medicine; Visit Provider Family Medicine | DX: E78.5 Hyperlipidemia, unspecified (principal) | CPT/HCPCS: 80053; 80061 ==

== ENCOUNTER 2024-10-06 15:39 | Emergency (ER) | payer OTHER, SELFPAY ==
[2024-10-06 15:46] VITALS: BP 165/103; PULSE 80; RESP 18; TEMP 37.3; O2SAT 98; BMI 29.1
[2024-10-06 16:13] LABS: Basophils # 0.1 10^3/uL (0.0-0.1); Basophils % 0.9 %; Eosinophils # 0.1 10^3/uL (0.0-0.8); Eosinophils % 0.9 %; Hematocrit 54.1 % (37-53); Lymphocytes # 1.3 10^3/uL (0.8-4.8); Lymphocytes % 20.5 %; Mean Corpuscular HGB Conc 32.2 g/dL (30-55); Mean Corpuscular Hemoglobin 26.8 pg (27-33); Mean Corpuscular Volume 83.2 fl (82-101); Mean Platelet Volume 10.8 fL (7.4-10.4); Monocytes # 0.7 10^3/uL (0.2-0.9); Monocytes % 10.3 %; Neutrophils # 4.37 10^3/uL (1.8-7.7); Neutrophils % 67.2 %; Nucleated Red Blood Cells % 0 %; Platelet Count 142 10^3/cmm (157-399); Red Cell Distribution Width 14.5 % (12.1-15.1)
[2024-10-06 16:31] LABS: Alanine Aminotransferase 15 U/L (0-41); Albumin Level 4.3 g/dL (3.5-5.2); Alkaline Phosphatase 94 U/L (40-130); Anion Gap 16.6 (5-19); Aspartate Amino Transferase 22 U/L (0-40); Blood Urea Nitrogen 8 mg/dL (6-20); Calcium 9.2 mg/dL (8.5-10.5); Carbon Dioxide 25 mmol/L (22-29); Chloride 99 mmol/L (98-107); Creatinine Clr Calc Pharmacy 84.6393; Globulin 3.6 g/dL (1.3-4.6); Glomerular Filtration Rate 63.6 mL/min (90-130); Glucose 113 mg/dL (65-115); Lipase 118 U/L (13-60); Osmolality Calculated 283 mOsm/kg (285-295); Potassium 3.6 mmol/L (3.5-5.1); Sodium 137 mmol/L (136-145); Total Bilirubin 0.5 mg/dL (0.15-1.2); Total Protein 7.9 g/dL (6.6-8.7)
--- NOTE | 2024-10-06 17:37 | W.ED.ABDPA2 ---
Documented by User: Genaro Henry DO 10/07/24 06:05 HPI - Abdominal Pain General: Chief Complaint: Abdominal Pain Stated Complaint: bp issues, fever, n/v Time Seen by Provider: 10/06/24 17:24 History of Present Illness: 53-year-old male presents emergency room complaining of abdominal pain for last 2 days with nausea several hours after vomiting he also reports low-grade fever denies dysuria urgency or frequency. He has had a slight cough. Refers pain mostly in the right upper quadrant. Previous cholecystectomy and colon resection. Associated Symptoms: Reports diarrhea, nausea and vomiting; Denies chills, dysuria, fever(s), hematochezia and melena Related Data Previous Rx's ?Medication ?Instructions ?Recorded pantoprazole 40 mg tablet,delayed 40 mg PO DAILY #90 tabs 05/30/24 release ondansetron HCl 4 mg tablet 4 mg PO Q8H PRN nausea and 10/06/24 vomiting #14 tabs Allergies Allergy/AdvReac Type Severity Reaction Status Date / Time atorvastatin (From Lipitor) Allergy ADR-Vomitin Verified 10/06/24 15:53 g morphine Allergy ALGY-Fever Verified 10/06/24 15:53 Review of Systems Const: Denies: fever(s) or chills Card: Denies: chest pain Resp: Denies: dyspnea GI: Reports: abdominal pain, nausea, vomiting and diarrhea; Denies: hematochezia, melena, mucus in stool or white/light colored stool : Denies: dysuria, urinary frequency or urinary urgency Musc: Denies: neck pain or back pain Skin/Breast: Denies: rash PFSH ED PFSH: Medical History Diverticulitis Fracture of T12 vertebra Surgical History History of colon resection Status post colonoscopy (01/25/22) History of cholecystectomy History of spinal surgery Family History Grandmother Diabetes Grandfather Cancer Sister Multiple sclerosis Father Degeneration of spine Social History Smoking and tobacco/nicotine status: current every day tobacco/nicotine user Quit status (tobacco/nicotine): not considering quitting Second hand smoke exposure: Yes Alcohol intake: former Substance/Drug Use: never Physical Exam Const: GENERAL APPEARANCE: cooperative ORIENTATION/CONSCIOUSNESS: Yes awake, Yes oriented to person, Yes oriented to place and Yes oriented to time HENMT: COMMON NORMALS: normocephalic, atraumatic and hearing grossly normal bilaterally HEAD & SCALP: normocephalic and atraumatic Resp: COMMON NORMALS: normal respiratory effort, No retractions, No use of accessory muscles and clear to auscultation bilaterally AUSCULTATION: clear to auscultation bilaterally Cardio: COMMON NORMALS: regular rate, regular rhythm and No murmurs present (Cardio) RATE: regular rate RHYTHM: regular rhythm GI: COMMON NORMALS: Soft to palpation and No hepatosplenomegaly present AUSCULTATION: Yes normoactive bowel sounds PALPATION: Yes Soft to palpation, No Tenderness to palpation present (GI), No Guarding due to palpation present (GI) and Yes No hepatosplenomegaly present : BLADDER/KIDNEY EXAM: Yes CVA tenderness Back/Pelvis: GENERAL BACK: Yes CVA tenderness CVA tenderness: right Extremity: COMMON NORMALS: normal to inspection, capillary refill normal, no clubbing, cyanosis or edema, no calf tenderness and no pedal edema Neuro: SENSORIUM/ORIENTATION: Yes oriented to person, Yes oriented to place and Yes oriented to time Skin: COMMON NORMALS: no rashes or lesions noted GENERAL SKIN EXAM: no rashes or lesions noted Course Vital Signs: Vital signs: Vital Signs Temperature 99.2 F 10/06/24 15:46 Pulse Rate 71 10/06/24 21:43 Respiratory Rate 18 10/06/24 15:46 Blood Pressure 135/104 10/06/24 21:43 Pulse Oximetry 96 10/06/24 21:43 Oxygen Delivery Me thod Room Air 10/06/24 18:34 MDM - Abdominal Pain Medical Decision Making Care signed out to Dr. Umana at change of shift. See final notes for diagnosis and disposition. Lab Data 10/06/24 16:00 10/06/24 16:00 Labs/Radiology: Radiology Impressions Abdomen/Pelvis CT 10/06/24 17:44 IMPRESSION: 1. Redemonstrated postsurgical changes with anastomosis within mid to distal sigmoid colon with 14 mm cystic lesion adjacent to anastomosis which remains stable. Additional cystic structure within right pericolonic fat which may represent sigmoid colon diverticulum versus postoperative seroma is also stable. 2. Few fluid-filled loops of small bowel with minimal pericolonic fat stranding, nonspecific findings but may be seen with enteritis/colitis. 3. Status post cholecystectomy. COMMENTS: Consistent with the [employer]'s Incidental Findings Committee white paper (J Am Tim Radiol 2018): Any incidental renal lesion less than 1 cm or classified as too small to characterize, or any incidental cystic renal lesion characterized as simple-appearing, is likely benign. No follow-up imaging is recommended for these lesions per consensus recommendations based on imaging criteria. Chest X-Ray 10/06/24 17:44 IMPRESSION: No acute findings. Laboratory Results WBC 6.50 10^3/uL (3.29-11.43) 10/06/24 16:00 RBC 6.50 10^6/uL (3.85-5.65) H 10/06/24 16:00 Hgb 17.40 g/dL (11.27-16.99) H 10/06/24 16:00 Hct 54.1 % (37-53) H 10/06/24 16:00 MCV 83.2 fl (82-101) 10/06/24 16:00 MCH 26.8 pg (27-33) L 10/06/24 16:00 MCHC 32.2 g/dL (30-55) 10/06/24 16:00 RDW 14.5 % (12.1-15.1) 10/06/24 16:00 Plt Count 142 10^3/cmm (157-399) L 10/06/24 16:00 MPV 10.8 fL (7.4-10.4) H 10/06/24 16:00 Neut % (Auto) 67.2 % 10/06/24 16:00 Lymph % (Auto) 20.5 % 10/06/24 16:00 [place] % (Auto) 10.3 % 10/06/24 16:00 Eos % (Auto) 0.9 % 10/06/24 16:00 Baso % (Auto) 0.9 % 10/06/24 16:00 Neut # (Auto) 4.37 10^3/uL (1.8-7.7) 10/06/24 16:00 Lymph # (Auto) 1.3 10^3/uL (0.8-4.8) 10/06/24 16:00 [place] # (Auto) 0.7 10^3/uL (0.2-0.9) 10/06/24 16:00 Eos # (Auto) 0.1 10^3/uL (0.0-0.8) 10/06/24 16:00 Baso # (Auto) 0.1 10^3/uL (0.0-0.1) 10/06/24 16:00 Nucleated RBC % (auto) 0 % 10/06/24 16:00 Nucleated RBCs # 0.0 /100WBC 10/06/24 16:00 Sodium 137 mmol/L (136-145) 10/06/24 16:00 Potassium 3.6 mmol/L (3.5-5.1) 10/06/24 16:00 Chloride 99 mmol/L (98-107) 10/06/24 16:00 Carbon Dioxide 25 mmol/L (22-29) 10/06/24 16:00 Anion Gap 16.6 (5-19) 10/06/24 16:00 BUN 8 mg/dL (6-20) 10/06/24 16:00 Creatinine 1.2 mg/dL (0.7-1.2) 10/06/24 16:00 GFR Calculation 63.6 mL/min (90-130) L 10/06/24 16:00 Glucose 113 mg/dL (65-115) 10/06/24 16:00 Calculated Osmolality 283 mOsm/kg (285-295) L 10/06/24 16:00 Calcium 9.2 mg/dL (8.5-10.5) 10/06/24 16:00 Total Bilirubin 0.5 mg/dL (0.15-1.2) 10/06/24 16:00 AST 22 U/L (0-40) 10/06/24 16:00 ALT 15 U/L (0-41) 10/06/24 16:00 Alkaline Phosphatase 94 U/L (40-130) 10/06/24 16:00 Total Protein 7.9 g/dL (6.6-8.7) 10/06/24 16:00 Albumin 4.3 g/dL (3.5-5.2) 10/06/24 16:00 Globulin 3.6 g/dL (1.3-4.6) 10/06/24 16:00 Lipase 118 U/L (13-60) H 10/06/24 16:00 Urine Color Yellow (Yellow) 10/06/24 18:31 Urine Appearance Clear (CLEAR) 10/06/24 18:31 Urine pH 5 (5-7) 10/06/24 18:31 Ur Specific Ovid 1.015 (1.005-1.030) 10/06/24 18:31 Urine Protein Trace (Negative) 10/06/24 18:31 Urine Glucose (UA) Norm (Normal) 10/06/24 18:31 Urine Ketones Negative (Negative) 10/06/24 18: Urine Blood 3+ (Negative) H 10/06/24 18:31 Urine Nitrate Negative (Negative) 10/06/24 18:31 Urine Bilirubin Neg (Negative) 10/06/24 18:31 Urine Urobilinogen 1 mg/dL (Negative) H 10/06/24 18:31 Ur Leukocyte Esterase Trace (Negative) H 10/06/24 18:31 Urine RBC 11-20 /hpf (0-2) H 10/06/24 18:31 Urine WBC 0-5 /hpf (0-5) 10/06/24 18:31 Ur Squamous Epith Cells 0-5 /hpf (0-5) 10/06/24 18:31 Amorphous Sediment Not Reportable 10/06/24 18:31 Urine Bacteria None seen /hpf (NONE) 10/06/24 18:31 Hyaline Casts 0-4 /lpf H 10/06/24 18:31 Discharge Plan Discharge Patient Disposition: Home Clinical Impression: Colitis Nausea & vomiting Qualifiers: Vomiting type: unspecified Qualified Code(s): R11.2 - Nausea with vomiting, unspecified Condition: Stable Prescriptions: New ondansetron HCl 4 mg tablet 4 mg PO Q8H PRN (Reason: nausea and vomiting) Qty: 14 0RF No Action pantoprazole 40 mg tablet,delayed release (DR/EC) 40 mg PO DAILY Qty: 90 1RF Discharge Orders: Discharge ED (Routine); Ordered 10/06/24 Ordered By: Gonzalo Umana Referrals: Shlomo Martinez MD [Primary Care Provider] - 1 week Patient Instructions: Acute Nausea and Vomiting (DC), Colitis (ED) Activity Restrictions/Additional Instructions: Thank you for choosing [facility] for your healthcare needs today. Please realize that you were seen in the emergency department and that we are providing you with an emergency medical screening exam and this may not be a complete and all exclusive of all testing and/or medical workup we may need to determine your element or severity of your illness. It is very important that you follow-up as instructed with your primary care provider or specialist for the additional evaluation and to discuss your medical treatment plan. You may return to the emergency department should you have concerns or if your condition changes or worsens in any way. Print Language: Citizen Of [place] Coding Level of Care Code ED Jewel Oliving Machine Operator for Chg Fwd Documented by User: Gonzalo Umana DO 10/07/24 02:15 HPI - Abdominal Pain General: Chief Complaint: Abdominal Pain Stated Complaint: bp issues, fever, n/v Time Seen by Provider: 10/06/24 17:24 Related Data Previous Rx's ?Medication ?Instructions ?Recorded pantoprazole 40 mg tablet,delayed 40 mg PO DAILY #90 tabs 05/30/24 release ondansetron HCl 4 mg tablet 4 mg PO Q8H PRN nausea and 10/06/24 vomiting #14 tabs Allergies Allergy/AdvReac Type Severity Reaction Status Date / Time atorvastatin (From Lipitor) Allergy ADR-Vomitin Verified 10/06/24 15:53 g morphine Allergy ALGY-Fever Verified 10/06/24 15:53 [facility] ED PFSH: Medical History Diverticulitis Fracture of T12 vertebra Surgical History History of colon resection Status post colonoscopy (01/25/22) History of cholecystectomy History of spinal surgery Family History Grandmother Diabetes Grandfather Cancer Sister Multiple sclerosis Father Degeneration of spine Social History Smoking and tobacco/nicotine status: current every day tobacco/nicotine user Quit status (tobacco/nicotine): not considering quitting Second hand smoke exposure: Yes Alcohol intake: former Substance/Drug Use: never Course Vital Signs: Vital signs: Vital Signs Temperature 99.2 F 10/06/24 15:46 Pulse Rate 71 10/06/24 21:43 Respiratory Rate 18 10/06/24 15:46 Blood Pressure 135/104 10/06/24 21:43 Pulse Oximetry 96 10/06/24 21:43 Oxygen Delivery Me thod Room Air 10/06/24 18:34 MDM - Abdominal Pain Medical Decision Making Care signed out to Dr. Umana at change of shift. See final notes for diagnosis and disposition. Care transferred to myself at shift change, lab reviewed as well as CT scan, all of this showed chronic conditions or possible nonspecific condition such as enteritis colitis, patient was given Toradol for pain. Patient be sent home with a prescription for Zofran. Patient to follow-up with his PCP within the next 3 to 5 days for further evaluation treatment. Lab Data 10/06/24 16:00 10/06/24 16:00 Labs/Radiology: Radiology Impressions Abdomen/Pelvis CT 10/06/24 17:44 IMPRESSION: 1. Redemonstrated postsurgical changes with anastomosis within mid to distal sigmoid colon with 14 mm cystic lesion adjacent to anastomosis which remains stable. Additional cystic structure within right pericolonic fat which may represent sigmoid colon diverticulum versus postoperative seroma is also stable. 2. Few fluid-filled loops of small bowel with minimal pericolonic fat stranding, nonspecific findings but may be seen with enteritis/colitis. 3. Status post cholecystectomy. COMMENTS: Consistent with the [employer]'s Incidental Findings Committee white paper (J Am Tim Radiol 2018): Any incidental renal lesion less than 1 cm or classified as too small to characterize, or any incidental cystic renal lesion characterized as simple-appearing, is likely benign. No follow-up imaging is recommended for these lesions per consensus recommendations based on imaging criteria. Chest X-Ray 10/06/24 17:44 IMPRESSION: No acute findings. Laboratory Results WBC 6.50 10^3/uL (3.29-11.43) 10/06/24 16:00 RBC 6.50 10^6/uL (3.85-5.65) H 10/06/24 16:00 Hgb 17.40 g/dL (11.27-16.99) H 10/06/24 16:00 Hct 54.1 % (37-53) H 10/06/24 16:00 MCV 83.2 fl (82-101) 10/06/24 16:00 MCH 26.8 pg (27-33) L 10/06/24 16:00 MCHC 32.2 g/dL (30-55) 10/06/24 16:00 RDW 14.5 % (12.1-15.1) 10/06/24 16:00 Plt Count 142 10^3/cmm (157-399) L 10/06/24 16:00 MPV 10.8 fL (7.4-10.4) H 10/06/24 16:00 Neut % (Auto) 67.2 % 10/06/24 16:00 Lymph % (Auto) 20.5 % 10/06/24 16:00 [place] % (Auto) 10.3 % 10/06/24 16:00 Eos % (Auto) 0.9 % 10/06/24 16:00 Baso % (Auto) 0.9 % 10/06/24 16:00 Neut # (Auto) 4.37 10^3/uL (1.8-7.7) 10/06/24 16:00 Lymph # (Auto) 1.3 10^3/uL (0.8-4.8) 10/06/24 16:00 [place] # (Auto) 0.7 10^3/uL (0.2-0.9) 10/06/24 16:00 Eos # (Auto) 0.1 10^3/uL (0.0-0.8) 10/06/24 16:00 Baso # (Auto) 0.1 10^3/uL (0.0-0.1) 10/06/24 16:00 Nucleated RBC % (auto) 0 % 10/06/24 16:00 Nucleated RBCs # 0.0 /100WBC 10/06/24 16:00 Sodium 137 mmol/L (136-145) 10/06/24 16:00 Potassium 3.6 mmol/L (3.5-5.1) 10/06/24 16:00 Chloride 99 mmol/L (98-107) 10/06/24 16:00 Carbon Dioxide 25 mmol/L (22-29) 10/06/24 16:00 Anion Gap 16.6 (5-19) 10/06/24 16:00 BUN 8 mg/dL (6-20) 10/06/24 16:00 Creatinine 1.2 mg/dL (0.7-1.2) 10/06/24 16:00 GFR Calculation 63.6 mL/min (90-130) L 10/06/24 16:00 Glucose 113 mg/dL (65-115) 10/06/24 16:00 Calculated Osmolality 283 mOsm/kg (285-295) L 10/06/24 16:00 Calcium 9.2 mg/dL (8.5-10.5) 10/06/24 16:00 Total Bilirubin 0.5 mg/dL (0.15-1.2) 10/06/24 16:00 AST 22 U/L (0-40) 10/06/24 16:00 ALT 15 U/L (0-41) 10/06/24 16:00 Alkaline Phosphatase 94 U/L (40-130) 10/06/24 16:00 Total Protein 7.9 g/dL (6.6-8.7) 10/06/24 16:00 Albumin 4.3 g/dL (3.5-5.2) 10/06/24 16:00 Globulin 3.6 g/dL (1.3-4.6) 10/06/24 16:00 Lipase 118 U/L (13-60) H 10/06/24 16:00 Urine Color Yellow (Yellow) 10/06/24 18:31 Urine Appearance Clear (CLEAR) 10/06/24 18:31 Urine pH 5 (5-7) 10/06/24 18: Ur Specific Ovid 1.015 (1.005-1.030) 10/06/24 18:31 Urine Protein Trace (Negative) 10/06/24 18:31 Urine Glucose (UA) Norm (Normal) 10/06/24 18:31 Urine Ketones Negative (Negative) 10/06/24 18: Urine Blood 3+ (Negative) H 10/06/24 18:31 Urine Nitrate Negative (Negative) 10/06/24 18:31 Urine Bilirubin Neg (Negative) 10/06/24 18:31 Urine Urobilinogen 1 mg/dL (Negative) H 10/06/24 18:31 Ur Leukocyte Esterase Trace (Negative) H 10/06/24 18:31 Urine RBC 11-20 /hpf (0-2) H 10/06/24 18:31 Urine WBC 0-5 /hpf (0-5) 10/06/24 18:31 Ur Squamous Epith Cells 0-5 /hpf (0-5) 10/06/24 18:31 Amorphous Sediment Not Reportable 10/06/24 18:31 Urine Bacteria None seen /hpf (NONE) 10/06/24 18:31 Hyaline Casts 0-4 /lpf H 10/06/24 18:31 All radiology interpretation(s) finalized by discharge Discharge Plan Discharge Patient Disposition: Home Clinical Impression: Colitis Nausea & vomiting Qualifiers: Vomiting type: unspecified Qualified Code(s): R11.2 - Nausea with vomiting, unspecified Condition: Stable Prescriptions: New ondansetron HCl 4 mg tablet 4 mg PO Q8H PRN (Reason: nausea and vomiting) Qty: 14 0RF No Action pantoprazole 40 mg tablet,delayed release (DR/EC) 40 mg PO DAILY Qty: 90 1RF Discharge Orders: Discharge ED (Routine); Ordered 10/06/24 Ordered By: Gonzalo Umana Referrals: Shlomo Martinez MD [Primary Care Provider] - 1 week Patient Instructions: Acute Nausea and Vomiting (DC), Colitis (ED) Activity Restrictions/Additional Instructions: Thank you for choosing [facility] for your healthcare needs today. Please realize that you were seen in the emergency department and that we are providing you with an emergency medical screening exam and this may not be a complete and all exclusive of all testing and/or medical workup we may need to determine your element or severity of your illness. It is very important that you follow-up as instructed with your primary care provider or specialist for the additional evaluation and to discuss your medical treatment plan. You may return to the emergency department should you have concerns or if your condition changes or worsens in any way. Print Language: Citizen Of [place] Coding Level of Care Code ED Jewel Oliving Machine Operator for Janet Rubio
--- NOTE | 2024-10-06 17:44 | XRR_ITS ---
PROCEDURE INFORMATION: Exam: XR Chest Exam date and time: 10/06/2024 5:57 PM Age: 53 years old Clinical indication: Cough and dyspnea; Additional info: Dyspnea/cough TECHNIQUE: Imaging protocol: Radiologic exam of the chest. Views: 1 view. COMPARISON: CT chest con [id number] 05/26/2021 11:31 AM FINDINGS: Lungs: Unremarkable. No consolidation. Pleural spaces: Unremarkable. No pleural effusion. No pneumothorax. Heart/Mediastinum: Unremarkable. No cardiomegaly. Bones/joints: Unremarkable. XR/XR chest 1V portable [id number] IMPRESSION: No acute findings.
--- NOTE | 2024-10-06 17:44 | CTR_ITS ---
PROCEDURE INFORMATION: Exam: CT Abdomen And Pelvis With Contrast Exam date and time: 10/06/2024 6:07 PM Age: 53 years old Clinical indication: Abdominal pain; Generalized; Prior surgery; Surgery date: 6+ months; Surgery type: Hemrrhoid, colon, gb; Additional info: Abd pain TECHNIQUE: Imaging protocol: Computed tomography of the abdomen and pelvis with contrast. Radiation optimization: All CT scans at this facility use at least one of these dose optimization techniques: automated exposure control; mA and/or kV adjustment per patient size (includes targeted exams where dose is matched to clinical indication); or iterative reconstruction. Contrast material: OMNIPAQUE 350; Contrast volume: 100 ml; Contrast route: INTRAVENOUS (IV); COMPARISON: CT abdomen pelvis w con* [id number] 01/08/2024 1:34 PM RADIATION DOSE METRICS: Total DLP (mGy-cm): 421.73 FINDINGS: Lungs: Unremarkable. Liver: Normal. No mass. Gallbladder and biliary ducts: Gallbladder surgically absent. Pancreas: Normal. No ductal dilation. Spleen: Normal. No splenomegaly. Adrenal glands: Normal. No mass. Kidneys and ureters: Subcentimeter right renal hypodensity; not completely characterized but are likely benign cyst. In the absence of risk factors, no further workup is recommended. Stomach and bowel: Postsurgical changes with anastomosis within mid to distal sigmoid colon. Redemonstrated 14 mm well-circumscribed cystic focus adjacent to anastomosis (3/72). Additional 20 mm cystic focus within right pericolonic fat adjacent to anastomosis (3/72), stable and may represent a diverticulum of sigmoid colon versus postoperative seroma. Multiple fluid-filled loops of small bowel. No bowel dilatation. Coronal images demonstrate minimal pericolonic fat stranding. Appendix: No evidence of appendicitis. Intraperitoneal space: Unremarkable. No free air. No significant fluid collection. Vasculature: Severe atherosclerosis. Lymph nodes: Unremarkable. No enlarged lymph nodes. Urinary bladder: Unremarkable as visualized. Reproductive: Unremarkable as visualized. Bones/joints: Changes of prior T12 vertebroplasty. No acute osseous abnormality. Soft tissues: Small fat containing umbilical hernia. CT/CT abdomen pelvis w con* [id number] IMPRESSION: 1. Redemonstrated postsurgical changes with anastomosis within mid to distal sigmoid colon with 14 mm cystic lesion adjacent to anastomosis which remains stable. Additional cystic structure within right pericolonic fat which may represent sigmoid colon diverticulum versus postoperative seroma is also stable. 2. Few fluid-filled loops of small bowel with minimal pericolonic fat stranding, nonspecific findings but may be seen with enteritis/colitis. 3. Status post cholecystectomy. COMMENTS: Consistent with the [employer]'s Incidental Findings Committee white paper (J Am Tim Radiol 2018): Any incidental renal lesion less than 1 cm or classified as too small to characterize, or any incidental cystic renal lesion characterized as simple-appearing, is likely benign. No follow-up imaging is recommended for these lesions per consensus recommendations based on imaging criteria.
--- NOTE | 2024-10-06 17:46 | ECG_ITS ---
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 Measurements Intervals [place] Rate: 59 P: 32 CA: 164 QRS: 70 QRSD: 84 T: 12 QT: 374 QTc: 373 Interpretive Statements SINUS BRADYCARDIA POSSIBLE LEFT ATRIAL ENLARGEMENT [-0.1mV P-WAVE IN V1/V2] Compared to ECG 05/25/2021 22:52:47 Sinus rhythm no longer present Electronically Signed On 10-06-2024 22:23:20 CDT by Gallo Christina M.D. [email or web address]
[2024-10-06] MEDS: iohexol 350 mg/mL 500 mL Btl (per mL) IV (18:07)
[2024-10-06 18:34] VITALS: BP 160/93; PULSE 65; O2SAT 93
[2024-10-06 18:52] LABS: Bacteria Urine None Seen /hpf; Hyaline Casts Urine 0-4 /lpf; Squamous Epithelial Cell Urine 0-5 /hpf (0-5); WBC Urine 0-5 /hpf (0-5)
[2024-10-06 19:04] LABS: Add Urine Microscopic? YES; Bilirubin Urine Neg (Negative); Blood Urine 3+ (Negative); Glucose Urine UA Norm (Normal); Ketones Urine Negative (Negative); Leukocyte Esterase Urine Trace (Negative); Nitrate Urine Negative (Negative); Protein Urine Trace (Negative); Specific Gravity, Urine 1.015 (1.005-1.030); Urine Appearance Clear (CLEAR); Urine Color Yellow (Yellow); Urobilinogen Urine 1 mg/dL (Negative); pH Urine 5 (5-7)
[2024-10-06 19:05] LABS: Add Urine Culture? Yes
[2024-10-06] MEDS: ketorolac 30 mg/mL INJ IVP (19:59)
[2024-10-06] MEDS: ondansetron 2 mg/ML SDV 2 mL 8 MG IVP (21:12)
[2024-10-06 21:43] VITALS: BP 135/104; PULSE 71; O2SAT 96
== END 2024-10-06 21:45 | disposition home or self-care (01) ==
PROVIDERS: Emergency Medicine; Family Medicine; Emergency Provider Emergency Medicine; PCP Family Medicine
DX: K52.9 Noninfective gastroenteritis and colitis, unspecified (principal); R11.2 Nausea with vomiting, unspecified; Z72.0 Tobacco use
CPT/HCPCS: 36415; 71045; 74177; 80053; 81001; 83690; 85025; 87086; 93005; 96374; 96375; 99285; J1885; J2405

== ENCOUNTER 2025-01-19 08:22 | Emergency (ER) | payer OTHER, SELFPAY ==
--- OUTSIDE RECORDS SUMMARY | 2025-01-15 15:00 | XMS_ITS | Encounter Summary ---
Author Organization [facility] Address [address] [place] [address] Care Team Providers Care Professor Of Art Name Role Phone Unavailable Primary Care Provider Unavailabl e Reason for Referral * Outpatient Services (Routine) - Closed Specialty Diagnoses / Procedures Referred By Papa reed Referred To Contact Perioperative Diagnoses Lower abdominal pain History of colon resection Procedures ENDOSCOPY, COLON, DIAGNOSTIC TX COLONOSCOPY FLX DX W/COLLJ SPEC WHEN PFRMD TX COLONOSCOPY W/BIOPSY SINGLE/MULTIPLE TX COLSC FLX WITH DIRECTED SUBMUCOSAL NJX ANY SBST TX COLSC FLX W/RMVL OF TUMOR POLYP LESION SNARE TQ Marilyn Chris FNP [address] [facility] [address] [place] [address] Phone: tel: fax: [facility] [address] [facility] [address] [place] [address] Phone: tel: fax: Referral ID Status Reason Start Date Expiration Date Visits Re quested Visits Authorized [id number] Closed 01/15/2025 02/15/2026 1 1 * Outpatient Services (Routine) - Closed Specialty Diagnoses / Procedures Referred By Contact Referred To Contact Perioperative Diagnoses RUQ abdominal pain Gastroesophageal reflux disease, unspecified whether esophagitis present Procedures EGD TX ESOPHAGOGASTRODUODENOSCOPY TRANSORAL DIAGNOSTIC TX EGD TRANSORAL BIOPSY SINGLE/MULTIPLE TX EGD BALLOON DILATION ESOPHAGUS <30 MM DIAM TX DILATION ESOPH UNGUIDED SOUND/BOUGIE 1/MULT PASS Marilyn Chris FNP [address] [place] [address] Phone: tel:[phone] fax: [facility] [address] [place] [address] Phone: tel: fax: Referral ID Status Reason Start Date Expiration Date Visits Re quested Visits Authorized [id number] Closed 01/15/2025 02/15/2026 1 1 * CT Scan (Urgent) - Pending Review Specialty Diagnoses / Procedures Referred By Papa reed Referred To Contact Radiology Diagnoses Lower abdominal pain Procedures CT ABDOMEN PELVIS W CONTRAST Marilyn Chris FNP [address] [facility] [address] [place] [address] Phone: tel: fax: [facility] CT Scan [place] [address] [place] [address] Phone: tel: fax: Referral ID Status Reason Start Date Expiration Date V isits Requested Visits Authorized [id number] Pending Review 01/15/2025 02/15/2026 1 1 Reason for Visit * Reason Comments Establish Care * Eval and Treat (Routine) - Closed Specialty Diagnoses / Procedures Referred By Papa reed Referred To Contact Gastroenterology Diagnoses Gastroesophageal reflux disease without esophagitis Diverticulitis of intestine with perforation and abscess without bleeding, unspecified part of intestinal tract Procedures TX OFFICE/OUTPATIENT ESTABLISHED MOD MDM 30 MIN TX OFFICE/OUTPATIENT NEW MODERATE MDM 45 MINUTES new request Inessa Coats, DO [address] [place] [address] Phone: tel: fax: [facility] [place] [address] Phone: tel: fax: Referral ID Status Reason Start Date Expiration Date Visits Requested Visits Authorized [id number] Closed Performing Department to Schedule 12/15/2024 12/15/2025 1 1 Encounter Details Date Type Department Care Team (Late st Contact Info) Description 01/15/2025 3:00 PM CDT [facility] [place] [address] Marilyn Chris FNP [address] [facility] [address] [place] [address] RUQ abdominal pain (Primary Dx); Lower [...] on file 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 Plan of care discussed and developed in collaboration with Ruy Gray MD Danielle R Jones, FNP documented in this encounter Plan of Treatment Upcoming Encounters Date Type Department Care Team (Latest Contact Info) Description 02/02/2025 2:00 PM CDT Hospital Encounter [facility] [address] [place] [address] Kishan Huerta MD [address] [facility] [place] [address] 02/02/2025 2:00 PM CDT - 02/02/2025 2:20 PM CDT Surgery [facility] [address] [place] [address] Kishan Huerta MD [address] [facility] [address] [place] [address] ESOPHAGOGASTRODUODENOSCOPY Scheduled Orders Name Type [...] of any free intraperitoneal air. Procedure Note Cheri, Rohit G, MD - 01/16/2025 Exam: CT ABDOMEN PELVIS [...] the abdomen or pelvis. us Marilyn Chris TIRE FABRICATOR CT ORDERABLES Final Res ult documented in [...]
--- OUTSIDE RECORDS SUMMARY | 2025-01-16 10:53 | XMS_ITS | Encounter Summary ---
Author Organization [email or web address] Address [address] [place] [address] Care Team Providers Care Corporate Representative Name Role Phone Unavailable Primary Care Provider Unavailabl e Reason for Referral * CT Scan (Urgent) - Pending Review Specialty Diagnoses / Procedures Referred By Contac t Referred To Contact Radiology Diagnoses Lower abdominal pain Procedures CT ABDOMEN PELVIS W CONTRAST Marilyn Chris FNP [address] [address] Phone: tel: fax: [facility] [place] [address] [place] [address] Phone: tel: fax: Referral ID Status Reason Start Date Expiration Date V isits Requested Visits Authorized [id number] Pending Review 01/15/2025 02/15/2026 1 1 Reason for Visit * CT Scan (Urgent) - Pending Review Specialty Diagnoses / Procedures Referred By Contac t Referred To Contact Radiology Diagnoses Lower abdominal pain Procedures CT ABDOMEN PELVIS W CONTRAST Marilyn Chris FNP [address] [facility] [address] [place] [address] Phone: tel: fax: [facility] [place] [address] [place] [address] Phone: tel: fax: Referral ID Status Reason Start Date Expiration Date V isits Requested Visits Authorized [id number] Pending Review 01/15/2025 02/15/2026 1 1 Encounter Details Date Type Department Care Team (Latest Contact Info) Description 01/16/2025 10:53 AM CDT - 01/16/2025 11:59 PM CDT Hospital Encounter [facility] [place] [address] [place] [address] Marilyn Chris, STOCK AND STATION AGENT [address] 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 4000 mL 01/19/2025 01/19/2025 HYDROcodone-aceta minophen (NORCO) 5-325 mg tabletIndications :S/P colectomy Take 1 Tablet by mouth every 6 hours as needed for Pain, Moderate. Max Daily Amount: 4 Tablets 30 Tablet 01/18/2023 oxyCODONE (ROXICODONE) 5 mg tabletIndications :Diverticulitis of large intestine with abscess without bleeding Take 1 Tablet (5 mg) by mouth every 4 hours as needed for Pain. Max Daily Amount: 30 mg 30 Tablet 01/05/2023 pantoprazole 40 mg tablet,delayed release Take 40 mg by mouth daily. atorvastatin (LIPITOR) 40 mg tablet Take 40 mg by mouth daily. 12/28/2022 lisinopriL (PRINIVIL) 20 mg tablet Take 20 mg by mouth daily. 12/11/2022 ondansetron (Zofran) 4 mg Tablet Take 1 Tablet (4 mg) by mouth every 8 hours as needed for Nausea/Emesis . 3 Tablet 12/27/2022 documented as of this encounter Plan of Treatment Upcoming Encounters Date Type Department Care Team (Latest Contact Info) Description 02/02/2025 2:00 PM CDT Hospital Encounter [facility] [place] [address] [place] [phone] Kishan Huerta MD [address] [facility] [address] [place] [address] 02/02/2025 2:00 PM CDT - 02/02/2025 2:20 PM CDT Surgery [facility] [place] [address] [place] [address] Kishan Huerta MD [address] [facility] [address] [place] [address] ESOPHAGOGASTRODUODENOSCOPY Scheduled Procedures Name Priority Associated Diagnoses Date/Ti [...] Stephany Ann documented as of this encounter Procedures Procedure Name Priority Date/Time Associated Diagnosis Comments CT ABDOMEN PELVIS W CONTRAST Stat 01/16/2025 11:43 AM CDT Lower abdominal pain CREATININE Stat 01/16/2025 11:00 AM CDT documented in this encounter Results * CT ABDOMEN PELVIS [...] acute abnormalities in the abdomen or pelvis. Marilyn Chris [facility] CT ORDERABLES Final Res ult * CREATININE (01/16/2025 11:00 AM CDT) CREATININE 1.16 0.67 - 1.17 mg/dL 01/16/2025 11:24 AM CDT [facility] GFR >60 >=60 mL/min/1.7 3 sq meter 01/16/2025 11:24 AM CDT [facility] Comment:eGFR calculated with 2020 CKD-EPI equation. Vegetarian diet, extremely high or low muscle mass, and may affect results. Cystatin C with Glomerular Filtration Rate is a suitable alternative for these patients. Blood Venipuncture / Unknown 01/16/2025 11:00 AM CDT 01/16/2025 11:06 AM CDT us Marilyn Chris STOCK AND STATION AGENT CHEMISTRY ORDERABLES Carrie cordero [id number] [address] [place] [address] documented in this encounter Visit Diagnoses Diagnosis Lower abdominal pain Abdominal pain, other specified site documented in this encounter Administered Medications Inactive Administered Medications - up to 3 most recent administrations Medication Order MAR Action Action Date Dose Rate Site iopamidoL (ISOVUE-300) 61% injection (single-use vial) 100 mL 100 mL, IV, INTRA-PROCEDURE ONCE, 1 dose, Starting on Sun01/16/25 at 1136, Until Sun01/16/25 at 1138, Routine Contrast Given 01/16/2025 11:38 AM CDT 100 mL sodium chloride bacteriostatic 0.9 % injection 10 mL 10 mL, IV, SEE ADMIN INSTRUCTIONS, Starting on 01/16/25 at 1137, Until Sun01/17/25 at 0239, Routine Given 01/16/2025 11:40 AM CDT 10 mL documented in this encounter Additional Health Concerns Active Problems Noted Date Diagnosed Date Autogenerated Problem 01/15/2025 documented as of this encounter
--- OUTSIDE RECORDS SUMMARY | 2025-01-19 08:34 | XMS_ITS | Encounter Summary ---
Author Organization [facility] Address [address] [place] [address] Care Team Providers Care Gearcase Assembler Name Role Phone Unavailable Primary Care Provider Unavailabl e Encounter Details Date Type Department Care Team (Late st Contact Info) Description 01/16/2025 Results Follow-Up [facility] Gastroenter[facility]- [place] [id number] 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 documented in this encounter Plan of Treatment Upcoming Encounters Date Type Department Care Team (Latest Contact Info) Description 02/02/2025 2:00 PM CDT Hospital Encounter [facility] [place] [address] [facility] [address] [place] [address] Kishan Huerta MD [address] [facility] [address] [place] [address] 02/02/2025 2:00 PM CDT - 02/02/2025 2:20 PM CDT Surgery [facility] [place] [address] [facility] [address] [place] [address] Kishan Huerta MD [address] [facility] [address] [place] [address] ESOPHAGOGASTRODUODENOSCOPY Scheduled Procedures Name Priority [...] Stephany Ann documented as of this encounter Visit Diagnoses Not on filedocumented in this encounter Additional Health Concerns Active Problems Noted Date Diagnosed Date Autogenerated Problem 01/15/2025 documented as of this encounter
--- OUTSIDE RECORDS SUMMARY | 2025-01-19 08:34 | XMS_ITS | Clinical Summary ---
Author Organization [facility] Address [address] [place] [address] Phone Care Team Providers Care Senior Solutions Architect Name Role Phone Unavailable Primary Care Provider Unavailabl e Allergies No known active allergies Medications ondansetron (Zofran) 4 mg Tablet Take 1 Tablet (4 mg) by mouth every 8 hours as needed for Nausea/Emesis. 3 Tablet 3 Active atorvastatin (LIPITOR) 40 mg tablet Take 40 mg by mouth daily. 3 Active lisinopriL (PRINIVIL) 20 mg tablet Take 20 mg by mouth daily. 3 Active pantoprazole 40 mg tablet,delayed release Take 40 mg by mouth daily. Active oxyCODONE (ROXICODONE) 5 mg tabletIndicatio ns:Diverticulit is of large intestine with abscess without bleeding Take 1 Tablet (5 mg) by mouth every 4 hours as needed for Pain. Max Daily Amount: 30 mg 30 Tablet 3 Active Additional Information Patient not taking.Reported on 01/15/2025 HYDROcodone-zak taminophen (NORCO) 5-325 mg tabletIndicatio ns:S/P colectomy Take 1 Tablet by mouth every 6 hours as needed for Pain, Moderate. Max Daily Amount: 4 Tablets 30 Tablet 3 Active Additional Information Patient not taking.Reported on 01/15/2025 PEG-Electrolyte Soln (NULYTELY) 420 g Recon Soln Take 4,000 mL by mouth one time only for 1 dose. 4000 mL 5 01/20/20 25 Active Active Problems Problem Noted Date Diagnosed Date History of diverticulitis 01/11/2023 Diverticulitis 06/22/2021 Encounters Date Type Department Care Team Description 01/16/2025 10:53 AM CDT - 01/16/2025 11:59 PM CDT [facility] [place] [address] [place] [address] Marilyn Chris FNP Arrived Discharge Disposition: Home or Self Care 01/16/2025 Results Follow[facility]astroenterology[address] [place] [phone] ABDOMEN PELVIS W CONTRAST 01/15/2025 3:00 PM CDT Video Visit [address] [place] [phone] Marilyn Chris FNP RUQ abdominal pain (Primary Dx); Lower abdominal pain; Gastroesophageal reflux disease, unspecified whether esophagitis present; History of colon resection 12/15/2024 [facility] [place] [phone] Inessa Coats DO Gastroesophageal reflux disease without esophagitis (Primary Dx); Diverticulitis of intestine with perforation and abscess without bleeding, unspecified part of intestinal tract from Last 3 Months Immunizations Immunization Administration Dates Next Due (ADACEL/BOOSTRIX)(10 YR UP) TDAP VACCINE, 0.5ML, IM 05/25/2021 Family History Medical History Relation Name Comments Diabetes Paternal Grandmother Relation Name Status Comments Paternal Grandmother Social History Tobacco Use Types Packs/Day Years Used Date Smoking Tobacco: Every Day Cigarettes Smokeless Tobacco: Never Tobacco Cessation:Ready to Q uit: Not Asked; Counseling Given: Not Answered Alcohol Use Standard Drinks/Week Comments Not Currently 0 (1 standard drink = 0.6 oz pur e alcohol) Sex and Gender Information Value Date Recorded Sex Assigned at Not on file 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 Gender Identity Not on file Sexual Orientation Not on file Last Filed Vital Signs Vital Sign Reading Time Taken Comments Blood Pressure 150/108 12/03/2023 2:41 PM CDT Pulse 91 07/11/2023 2:05 PM GRANULAR OPERATOR Temperature 36.6 C (97.8 F) 07/11/2023 2:05 PM GRANULAR OPERATOR Respiratory Rate 16 01/06/2023 3:30 PM CDT Oxygen Saturation 96% 07/11/2023 2:05 PM GRANULAR OPERATOR Inhaled Oxygen Concentration - - Weight 90.7 kg (200 lb) 01/15/2025 2:46 PM CDT Height 180.3 cm (5' 11 ) 01/15/2025 2:46 PM CDT Body Mass Index 27.89 01/15/2025 2:46 PM CDT Plan of Treatment Upcoming Encounters Date Type Department Care Team (Latest Contact Info) Description 02/02/2025 2:00 PM CDT Hospital Encounter [facility] [place] [address] [place] [phone] Kishan Huerta MD [address] [place] [phone] 02/02/2025 2:00 PM CDT - 02/02/2025 2:20 PM CDT Surgery [facility] [place] [address] [phone] Kishan Huerta MD [address] [place] [address] ESOPHAGOGASTRODUODENOSCOPY Scheduled Procedures Name Priority Associated Diagnoses Date/Ti me ESOPHAGOGASTRODUODENOSCOPY RUQ abdominal pain Gastroesophageal reflux disease, unspecified whether esophagitis present Lower abdominal pain History of colon resection 02/02/2025 2:00 PM CDT COLONOSCOPY RUQ abdominal pain Gastroesophageal reflux disease, unspecified whether esophagitis present Lower abdominal pain History of colon resection 02/02/2025 2:00 PM CDT Health Maintenance Due Date Last Done Comments Pre-Diabetes and Diabetes Screening 1970 HEPATITIS B VACCINES (1 of 3 - 19+ 3-dose series) 09/30 FIT-DNA Q 3 years 10/17/2016 FIT/FOBT Q 1 year 10/17/2016 Flex Sig/CT Colonography Q 5 years 10/17/2016 ZOSTER VACCINE (1 of 2) 10/17/2021 Preventative Visit- Commercial 07/02/2024 INFLUENZA VACCINE (#1) 2025 DTAP/TDAP/TD VACCINES (2 - Td or Tdap) 05/25/2031 COLORECTAL SCREENING 01/15/2035 01/15/2025 Colorectal Cancer Screening 01/15/2035 Goals Goal Patient Goal Type Associated Problems Recent Progress Patient-Stated? Author Autogenerat ed Goal Care Plan Autogenerated Problem No Sarles, Stephany Dumont Procedures Procedure Name Priority Date/Time Associated Diagnosis Comments CT ABDOMEN PELVIS W CONTRAST Stat 01/16/2025 11:43 AM CDT Lower abdominal pain CREATININE Stat 01/16/2025 11:00 AM CDT from Last 3 Months Results * CT ABDOMEN PELVIS W CONTRAST [...] in the abdomen or pelvis. Marilyn Chris [facility] CT ORDERABLES Final Res ult * CREATININE (01/16/2025 11:00 AM CDT) CREATININE 1.16 0.67 - 1.17 mg/dL 01/16/2025 11:24 AM CDT [facility] GFR >60 >=60 mL/min/1.7 3 sq meter 01/16/2025 11:24 AM CDT [facility] Comment:eGFR calculated with 2020 CKD-EPI equation. Vegetarian diet, extremely high or low muscle mass, and may affect results. Cystatin C with Glomerular Filtration Rate is a suitable alternative for these patients. Blood Venipuncture / Unknown 01/16/2025 11:00 AM CDT 01/16/2025 11:06 AM CDT Marilyn Chris [facility] CHEMISTRY ORDERABLES Carrie cordero Result [facility] CLIA # [id number] [address] [place] [id number] from Last 3 Months Additional Health Concerns Active Problems Noted Date Diagnosed Date Autogenerated Problem 01/15/2025 Insurance [employer] [facility] [id number] Advance Directives For more information, please contact: [phone] * Full Code (Latest Code Status on File) Date Activated Date Inactivated Comments 01/05/2023 7:22 PM 01/06/2023 10:01 PM * Full Code Date Activated Date Inactivated Comments 01/05/2023 12:47 PM 01/05/2023 7:22 PM * Full Code Date Activated Date Inactivated Comments 01/05/2023 10:38 AM 01/05/2023 12:47 PM * Full Code Date Activated Date Inactivated Comments 06/22/2021 4:09 AM 06/24/2021 5:20 PM
--- NOTE | 2025-01-19 08:42 | ECG_ITS ---
[facility]: 2025-01[facility]19 Pat Name: Arlin Worley Department: Room: Gender: Male Bone Density Technician: : 1970 Requested By: Genaro Salvador Order Number: [id number] Phil MD: Angela Valdes M.D. Measurements Intervals [place] Rate: 73 P: 51 UT: 166 QRS: 85 QRSD: 84 T: 15 QT: 340 QTc: 375 Interpretive Statements SINUS RHYTHM POSSIBLE LEFT ATRIAL ENLARGEMENT [-0.1mV P-WAVE IN V1/V2] Compared to ECG 10/06/2024 17:55:34 Sinus bradycardia no longer present Electronically Signed On 01-19-2025 16:59:49 CDT by Angela Valdes M.D. [email or web address]
--- NOTE | 2025-01-19 09:06 | W.ED.ABDPA2 ---
HPI - Abdominal Pain General: Chief Complaint: Abdominal Pain Stated Complaint: abdominal pain, fever Time Seen by Provider: 01/19/25 08:28 Source: patient Mode of arrival: ambulatory Limitations: no limitations History of Present Illness: Patient is a 54-year-old male for for complaints of chronic abdominal pain and new onset body aches, fatigue, and low grade fevers. He states chronic abdominal pain over the past 2 years that is being evaluated at [facility] and had a CT with contrast performed 3 days ago. This was normal (official report on his phone and I personally reviewed this). He has scheduled EGD/colonoscopy for February 02 for further evaluation. He feels his body aches/fatigue/low grade fevers started after he received the CT contrast. He reports of nausea without vomiting and mucus in his stool, but denies any diarrhea or constipation. His pain is sometimes worse after eating. Past surgical history of partial colectomy due to diverticulitis and cholecystectomy. No other complaints at this time. MD elicited complaint: abdominal pain Onset (ago): year(s) (abdominal pain x 2 years; other symptoms over the past 3 days) Pain Consistency: intermittent Location: Diffuse Severity: moderate Quality: aching Radiation: none Migration to: no migration Exacerbating factors: eating Relieving factors: nothing Context: recent surgery/procedure (CT with contrast) Associated Symptoms: Reports chills, fever(s) and nausea; Denies constipation, diarrhea, dysuria, hematochezia, hematemesis, syncope and vomiting Related Data Home Medications ?Medication ?Instructions ?Recorded ?Confirmed lisinopril 20 mg tablet 20 mg PO QAM 01/19/25 01/19/25 pantoprazole 40 mg tablet,delayed 40 mg PO QAM 01/19/25 01/19/25 release sennosides 8.6 mg-docusate sodium 1 tab-cap PO DAILY PRN Constipation 01/19/25 01/19/25 50 mg tablet (Senokot-S) Allergies Allergy/AdvReac Type Severity Reaction Status Date / Time atorvastatin (From Lipitor) Allergy ADR-Vomitin Verified 12/08/24 14:04 g morphine Allergy ALGY-Fever Verified 12/08/24 14:04 Review of Systems Const: Reports: fever(s), chills, body aches and fatigue Eyes: Denies: change in vision, blurry vision, floaters or seeing flashes ENMT: Denies: throat pain, odynophagia, nasal discharge, nasal congestion or sinus pain Card: Denies: chest pain, lightheadedness, syncope or pre-syncope Resp: Reports: non-productive cough (chronic due to smoking); Denies: dyspnea GI: Reports: abdominal pain, nausea and mucus in stool; Denies: vomiting, hematemesis, diarrhea, constipation or hematochezia : Reports: urinary frequency; Denies: flank pain, difficulty urinating, dysuria, urinary urgency or urinary hesitancy Musc: Denies: neck pain, back pain, extremity pain, extremity swelling, joint pain, joint swelling or joint redness Skin/Breast: Denies: rash Neuro: Denies: headache(s), numbness in extremities, weakness in extremities, sensory changes or dizziness PFSH ED PFSH: Medical History Diverticulitis Fracture of T12 vertebra Surgical History History of colon resection Status post colonoscopy (01/25/22) History of cholecystectomy History of spinal surgery Family History Grandmother Diabetes Grandfather Cancer Sister Multiple sclerosis Father Degeneration of spine Social History Smoking and tobacco/nicotine status: current every day tobacco/nicotine user Quit status (tobacco/nicotine): not considering quitting Second hand smoke exposure: Yes Alcohol intake: former Substance/Drug Use: never Physical Exam Const: COMMON NORMALS: no acute distress, average body habitus, patient oriented x3, no limitations, healthy appearing, alert and well nourished GENERAL APPEARANCE: cooperative ORIENTATION/CONSCIOUSNESS: Yes awake, Yes oriented to person, Yes oriented to place and Yes oriented to time HENMT: COMMON NORMALS: normocephalic HEAD & SCALP: normal to inspection and normocephalic Eye: COMMON NORMALS: no scleral icterus Resp: COMMON NORMALS: normal respiratory effort and clear to auscultation bilaterally AUSCULTATION: clear to auscultation bilaterally Cardio: COMMON NORMALS: regular rate and regular rhythm RATE: regular rate RHYTHM: regular rhythm GI: COMMON NORMALS: Normal to inspection, nondistended, normoactive bowel sounds present, Soft to palpation, No hepatosplenomegaly present and no masses INSPECTION: Yes normal to inspection PALPATION: Yes Soft to palpation, Yes Tenderness to palpation present (GI) (RUQ, LUQ, lower abdomen; non-surgical evaluation), No Guarding due to palpation present (GI), No Rigid due to palpation and Yes No hepatosplenomegaly present : COMMON NORMALS: Yes no CVA tenderness BLADDER/KIDNEY EXAM: Yes no CVA tenderness Back/Pelvis: COMMON NORMALS: no CVA tenderness, thoracic and lumbar spine normal to inspection and no thoracic nor lumbar tenderness Extremity: GENERAL: Yes normal exam except as noted Neuro: NOHEMY COMA SCALE: document GCS findings Nohemy coma scale eye opening: Spontaneous Brandon coma scale verbal response: Orientated Nohemy coma scale motor response: Obey commands Brandon coma scale total score: 15 COMMON NORMALS: patient oriented x3, moves all extremities, no focal motor deficits, no sensory deficits noted and gait normal SENSORIUM/ORIENTATION: Yes alert, Yes oriented to person, Yes oriented to place and Yes oriented to time Skin: COMMON NORMALS: no rashes or lesions noted GENERAL SKIN EXAM: no rashes or lesions noted Course Vital Signs: Vital signs: Vital Signs Temperature 98.5 F 01/19/25 09:46 Pulse Rate 72 01/19/25 10:35 Respiratory Rate 16 01/19/25 10:35 Blood Pressure 142/89 01/19/25 10:35 Pulse Oximetry 100 01/19/25 10:35 Oxygen Delivery Me thod Room Air 01/19/25 09:07 MDM - Abdominal Pain Medical Decision Making Patient with normal vital signs. Blood work overall is nonactionable. UA does not appear infected. There was hematuria present. Looking at previous urine analysis results, he has always had hematuria. This is never been followed up with. Recommend he see urology for evaluation for possible cystoscopy especially with his smoking history. Patient has had a normal CT scan within the past 72 hours. Abdomen is nonsurgical today. I do not feel we need to repeat imaging. Recommend plan for further follow-up with EGD/colonoscopy. Medical Records I reviewed the patient's medical records. Lab Data I reviewed the patient's lab results. 01/19/25 09:10 01/19/25 09:10 Labs/Radiology: Laboratory Results WBC 11.86 10^3/uL (3.29-11.43) H 01/19/25 09:10 RBC 6.36 10^6/uL (3.85-5.65) H 01/19/25 09:10 Hgb 17.00 g/dL (11.27-16.99) H 01/19/25 09:10 Hct 52.4 % (37-53) 01/19/25 09:10 MCV 82.4 fl (82-101) 01/19/25 09:10 MCH 26.7 pg (27-33) L 01/19/25 09:10 MCHC 32.4 g/dL (30-55) 01/19/25 09:10 RDW 14.2 % (12.1-15.1) 01/19/25 09:10 Plt Count 206 10^3/cmm (157-399) 01/19/25 09:10 MPV 10.3 fL (7.4-10.4) 01/19/25 09:10 Neut % (Auto) 72.9 % 01/19/25 09:10 Lymph % (Auto) 14.0 % 01/19/25 09:10 [place] % (Auto) 10.4 % 01/19/25 09:10 Eos % (Auto) 1.6 % 01/19/25 09:10 Baso % (Auto) 0.8 % 01/19/25 09:10 Neut # (Auto) 8.66 10^3/uL (1.8-7.7) H 01/19/25 09:10 Lymph # (Auto) 1.7 10^3/uL (0.8-4.8) 01/19/25 09:10 [place] # (Auto) 1.2 10^3/uL (0.2-0.9) H 01/19/25 09:10 Eos # (Auto) 0.2 10^3/uL (0.0-0.8) 01/19/25 09:10 Baso # (Auto) 0.1 10^3/uL (0.0-0.1) 01/19/25 09:10 Nucleated RBC % (auto) 0 % 01/19/25 09:10 Nucleated RBCs # 0.0 /100WBC 01/19/25 09:10 Sodium 136 mmol/L (136-145) 01/19/25 09:10 Potassium 4.0 mmol/L (3.5-5.1) 01/19/25 09:10 Chloride 98 mmol/L (98-107) 01/19/25 09:10 Carbon Dioxide 25 mmol/L (22-29) 01/19/25 09:10 Anion Gap 17.0 (5-19) 01/19/25 09:10 BUN 7 mg/dL (6-20) 01/19/25 09:10 Creatinine 1.1 mg/dL (0.7-1.2) 01/19/25 09:10 GFR Calculation 70.0 mL/min (90-130) L 01/19/25 09:10 Glucose 91 mg/dL (65-115) 01/19/25 09:10 Calculated Osmolality 280 mOsm/kg (285-295) L 01/19/25 09:10 Calcium 9.7 mg/dL (8.5-10.5) 01/19/25 09:10 Total Bilirubin 0.9 mg/dL (0.15-1.2) 01/19/25 09:10 AST 17 U/L (0-40) 01/19/25 09:10 ALT 10 U/L (0-41) 01/19/25 09:10 Alkaline Phosphatase 89 U/L (40-130) 01/19/25 09:10 Total Protein 8.2 g/dL (6.6-8.7) 01/19/25 09:10 Albumin 4.2 g/dL (3.5-5.2) 01/19/25 09:10 Globulin 4.0 g/dL (1.3-4.6) 01/19/25 09:10 Lipase 20 U/L (13-60) 01/19/25 09:10 Urine Color Mobile (Yellow) A 01/19/25 09:30 Urine Appearance Cloudy (CLEAR) A 01/19/25 09:30 Urine pH 5.5 (5-7) 01/19/25 09:30 Ur Specific [place] 1.034 (1.005-1.030) H 01/19/25 09:30 Urine Protein 1+ (Negative) A 01/19/25 09:30 Urine Glucose (UA) Negative (Normal) 01/19/25 09:30 Urine Ketones Trace (Negative) 01/19/25 09:30 Urine Blood 2+ (Negative) A 01/19/25 09:30 Urine Nitrate Negative (Negative) 01/19/25 09:30 Urine Bilirubin 1+ (Negative) H 01/19/25 09:30 Urine Urobilinogen 1.0 mg/dL (Negative) 01/19/25 09:30 Ur Leukocyte Esterase Trace (Negative) A 01/19/25 09:30 Urine RBC 3-5 /hpf (0-2) 01/19/25 09:30 Urine WBC 0-5 /hpf (0-5) 01/19/25 09:30 Ur Squamous Epith Cells 0-5 /hpf (0-5) 01/19/25 09:30 Amorphous Sediment Not Reportable 01/19/25 09:30 Urine Bacteria None seen /hpf (NONE) 01/19/25 09:30 Hyaline Casts 0.81 /lpf 01/19/25 09:30 No radiology studies performed this visit Discharge Plan Discharge Patient Disposition: Home Clinical Impression: Body aches Fatigue Qualifiers: Fatigue type: unspecified Qualified Code(s): R53.83 - Other fatigue Condition: Stable Prescriptions: No Action sennosides-docusate sodium [Senokot-S] 8.6-50 mg Tablet 1 tab-cap PO DAILY PRN (Reason: Constipation) lisinopril 20 mg tablet 20 mg PO QAM pantoprazole 40 mg tablet,delayed release (DR/EC) 40 mg PO QAM Discharge Orders: Discharge ED (Routine); Ordered 01/19/25 Ordered By: Mari Soriano Referrals: Inessa Coats DO [Primary Care Provider, Family Practice] Patient Instructions: Patient Portal & Art Instructions Activity Restrictions/Additional Instructions: As we discussed, your blood work here was nonactionable. UA did not appear infected. I did have blood. It looks like this has been present previously as well. Especially with your smoking history, I recommend you follow-up with urology for evaluation and possible cystoscopy. Case management referral has been placed for this. Continue plan for further follow-up of your chronic abdominal pain with EGD and colonoscopy. Print Language: Andorran Coding Level of Care Code ED Diamond Setter for Janet Rubio
[2025-01-19 09:07] VITALS: BP 142/89; PULSE 76; RESP 16; O2SAT 98
[2025-01-19] MEDS: ondansetron 2 mg/ML SDV 2 mL 4 MG IVP (09:13)
[2025-01-19 09:18] LABS: Hematocrit 52.4 % (37-53); Hemoglobin 17.00 g/dL (11.27-16.99); Mean Corpuscular HGB Conc 32.4 g/dL (30-55); Mean Corpuscular Hemoglobin 26.7 pg (27-33); Mean Corpuscular Volume 82.4 fl (82-101); Nucleated Red Blood Cells % 0 %; Platelet Count 206 10^3/cmm (157-399); Red Blood Count 6.36 10^6/uL (3.85-5.65); White Blood Count 11.86 10^3/uL (3.29-11.43)
[2025-01-19 09:31] VITALS: BP 142/89; PULSE 74; RESP 16; O2SAT 98
[2025-01-19 09:38] LABS: Alanine Aminotransferase 10 U/L (0-41); Albumin Level 4.2 g/dL (3.5-5.2); Alkaline Phosphatase 89 U/L (40-130); Anion Gap 17.0 (5-19); Aspartate Amino Transferase 17 U/L (0-40); Blood Urea Nitrogen 7 mg/dL (6-20); Calcium 9.7 mg/dL (8.5-10.5); Carbon Dioxide 25 mmol/L (22-29); Chloride 98 mmol/L (98-107); Creatinine Clr Calc Pharmacy 89.4905; Globulin 4.0 g/dL (1.3-4.6); Glucose 91 mg/dL (65-115); Lipase 20 U/L (13-60); Osmolality Calculated 280 mOsm/kg (285-295); Potassium 4.0 mmol/L (3.5-5.1); Sodium 136 mmol/L (136-145); Total Protein 8.2 g/dL (6.6-8.7)
[2025-01-19 09:42] LABS: Glucose Urine UA Negative (Normal); Nitrate Urine Negative (Negative)
[2025-01-19 09:46] VITALS: TEMP 36.9
[2025-01-19 09:47] LABS: Add Urine Microscopic? YES
[2025-01-19 10:01] VITALS: BP 142/89; PULSE 70; RESP 16; O2SAT 100
[2025-01-19 10:20] LABS: Specific Gravity, Urine 1.034 (1.005-1.030)
[2025-01-19 10:35] VITALS: BP 142/89; PULSE 72; RESP 16; O2SAT 100
== END 2025-01-19 10:40 | disposition home or self-care (01) ==
PROVIDERS: Family Medicine; Emergency Provider Physician Assistant; PCP Family Medicine
DX: R53.83 Other fatigue (principal); M79.10 Myalgia, unspecified site
CPT/HCPCS: 36415; 80053; 81001; 83690; 85025; 93005; 96361; 96374; 99284; J2405; J7030

== ENCOUNTER 2025-01-20 18:01 | Emergency (ER) | payer OTHER, SELFPAY ==
[2025-01-20 18:03] VITALS: BP 140/94; PULSE 96; RESP 16; TEMP 37.6; O2SAT 96
--- NOTE | 2025-01-20 18:12 | CTR_ITS ---
PROCEDURE INFORMATION: Exam: CT Abdomen And Pelvis With Contrast Exam date and time: 01/20/2025 6:46 PM Age: 54 years old Clinical indication: Abdominal pain; Acute; Prior surgery; Surgery date: 6+ months; Surgery type: Partial colon gb appy; Additional info: Abd pain TECHNIQUE: Imaging protocol: Computed tomography of the abdomen and pelvis with contrast. Radiation optimization: All CT scans at this facility use at least one of these dose optimization techniques: automated exposure control; mA and/or kV adjustment per patient size (includes targeted exams where dose is matched to clinical indication); or iterative reconstruction. Contrast material: OMNI 350; Contrast volume: 100 ml; Contrast route: INTRAVENOUS (IV); COMPARISON: CT abdomen pelvis w con* [id number] 10/06/2024 6:07 PM RADIATION DOSE METRICS: Total DLP (mGy-cm): 614.15 FINDINGS: Lungs: Irregular opacities in the left lung base medially impression. Liver: Normal. No mass. Gallbladder and biliary ducts: The gallbladder is absent. Pancreas: Normal. No ductal dilation. Spleen: Normal. No splenomegaly. Adrenal glands: Normal. No mass. Kidneys and ureters: Normal. No hydronephrosis. Stomach and bowel: Patent bowel anastomosis in the sigmoid colon. Appendix: The appendix is absent. Intraperitoneal space: Unremarkable. No free air. No significant fluid collection. Vasculature: Atherosclerotic disease of the abdominal aorta and iliac arteries. No abdominal aortic aneurysm. Lymph nodes: Unremarkable. No enlarged lymph nodes. Urinary bladder: Unremarkable as visualized. Reproductive: Unremarkable as visualized. Bones/joints: Prior kyphoplasty at T12. Soft tissues: Unremarkable. CT/CT abdomen pelvis w con* [id number] IMPRESSION: 1. Partial colectomy with patent bowel anastomosis in the sigmoid colon. No bowel obstruction or inflammatory process associated with the bowel. 2. No free air or significant free fluid in the abdomen or pelvis.
--- NOTE | 2025-01-20 18:13 | ED_ITS ---
HPI - General Adult 2 General: Chief complaint: General Medical Stated complaint: abd and back pain, n/v/f, dr sent Time Seen by Provider: 01/20/25 18:10 Source: patient Mode of arrival: ambulatory Limitations: no limitations History of Present Illness: 54-year-old male states he been having n ausea vomiting along with abdominal pain since Sunday states he was seen at [place] on Sunday had a CT he set up for colonoscopy EGD on February 02 seen here 2 days ago and had normal workup states his abdominal pain is worse and he is continued vomiting not been able to tolerate p.o. He states he has not had any nausea medicine at home. Denies any worse improved after Associated symptoms: Reports nausea and vomiting; Deny chest pain, dyspnea, headache(s) or rash Related Data Home Medications ?Medication ?Instructions ?Recorded ?Confirmed lisinopril 20 mg tablet 20 mg PO QAM 01/19/25 pantoprazole 40 mg tablet,delayed 40 mg PO QAM 5 01/20/25 release sennosides 8.6 mg-docusate sodium 1 tab-cap PO DAILY P RN Constipation 01/19/25 01/20/25 50 mg tablet (Senokot-S) Previous Rx's ?Medication ?Instructions ?Recorded metoclopramide HCl 10 mg tablet 10 mg PO Q6H PRN nause a and 01/20/25 (Reglan) vomiting #20 tabs Allergies Allergy/AdvReac Type Severity Reaction Status Date / Time atorvastatin (From Lipitor) Allergy ADR-Vomitin Verified 01/20/25 15:55 g morphine Allergy ALGY-Fever Verified 01/20/25 15:55 Review of Systems 2 Const: Denies: fever(s), chills, body aches or change in appetite ENMT: Denies: throat pain or dental pain Card: Denies: chest pain Resp: Denies: dyspnea GI: Reports: abdominal pain, nausea and vomiting; Denies: diarrhea Musc: Denies: neck pain or back pain Skin/Breast: Denies: rash Neuro: Denies: headache(s) PFSH ED 2 PFSH: Medical History Diverticulitis Fracture of T12 vertebra Surgical History History of colon resection Status post colonoscopy (01/25/22) History of cholecystectomy History of spinal surgery Family History Grandmother Diabetes Grandfather Cancer Sister Multiple sclerosis Father Degeneration of spine Social History Smoking and tobacco/nicotine status: current every day tobacco/nicotine user Quit status (tobacco/nicotine): not considering quitting Second hand smoke exposure: Yes Alcohol intake: former Substance/Drug Use: never Physical Exam 2 Const: COMMON NORMALS: no acute distress, patient oriented x3 and healthy appearing HENMT: COMMON NORMALS: normocephalic and atraumatic HEAD & SCALP: n ormocephalic and atraumatic Eye: COMMON NORMALS: Equal, round and reactive pupils present and EOMs intact bilaterally PUPIL: Yes Equal, round and reactive pupils present Neck/C-Spine: COMMON NORMALS: full ROM and supple Chest: COMMONS NORMALS: normal inspection of the chest and normal palpation of entire chest wall Resp: COMMON NORMALS: normal respiratory effort, No retractions, No use of accessory muscles and clear to auscultation bilaterally AUSCULTATION: clear to auscultation bilaterally Cardio: COMMON NORMALS: regular rate, regular rhythm and No murmurs present (Cardio) RATE: regular rate RHYTHM: regular rhythm GI: COMMON NORMALS: Normal to inspection, nondistended, normoactive bowel sounds present, Soft to palpation, non-tender and no masses PALPATION: Yes Soft to palpation Extremity: COMMON NORMALS: normal to inspection and full ROM Neuro: COMMON NORMALS: patient oriented x3, moves all extremities and no focal motor deficits Psych: COMMON NORMALS: mental status grossly normal, Normal thought process present and cooperative THOUGHT PROCESS: Normal thought process present Skin: COMMON NORMALS: no rashes or lesions noted and no wounds GENERAL SKIN EXAM: no rashes or lesions noted Course 2 Vital Signs: Vital signs: Vital Signs Temperature 99.7 F H 01/20/25 18:03 Pulse Rate 79 01/20/25 19:19 Respiratory Rate 18 01/20/25 19:19 Blood Pressure 119/82 01/20/25 19:19 Pulse Oximetry 95 01/20/25 19:19 Oxygen Delivery Me thod Room Air 01/20/25 19:19 MDM - General Adult Medical Decision Making Patient presents here with abdominal pain and vomiting feels much improved after Reglan he is able to tolerate p.o. imaging blood work here is normal he stable for discharge follow-up PCP return if worsening he understands agrees to plan. Medical Records I reviewed the patient's medical records. Lab Data I reviewed the patient's lab results. 01/20/25 18:18 01/20/25 18:18 Radiology Impressions Abdomen/Pelvis CT 01/20/25 18:12 IMPRESSION: 1. Partial colectomy with patent bowel anastomosis in the sigmoid colon. No bowel obstruction or inflammatory process associated with the bowel. 2. No free air or significant free fluid in the abdomen or pelvis. Laboratory Results WBC 10.91 10^3/uL (3.29-11.43) 01/20/25 18:18 RBC 6.11 10^6/uL (3.85-5.65) H 01/20/25 18:18 Hgb 16.00 g/dL (11.27-16.99) 01/20/25 18:18 Hct 49.3 % (37-53) 01/20/25 18:18 MCV 80.7 fl (82-101) L 01/20/25 18:18 MCH 26.2 pg (27-33) L 01/20/25 18:18 MCHC 32.5 g/dL (30-55) 01/20/25 18:18 RDW 13.4 % (12.1-15.1) 01/20/25 18:18 Plt Count 189 10^3/cmm (157-399) 01/20/25 18:18 MPV 10.7 fL (7.4-10.4) H 01/20/25 18:18 Neut % (Auto) 75.8 % 01/20/25 18:18 Lymph % (Auto) 11.5 % 01/20/25 18:18 [place] % (Auto) 11.8 % 01/20/25 18:18 Eos % (Auto) 0.0 % 01/20/25 18:18 Baso % (Auto) 0.5 % 01/20/25 18:18 Neut # (Auto) 8.27 10^3/uL (1.8-7.7) H 01/20/25 18:18 Lymph # (Auto) 1.3 10^3/uL (0.8-4.8) 01/20/25 18:18 [place] # (Auto) 1.3 10^3/uL (0.2-0.9) H 01/20/25 18:18 Eos # (Auto) 0.0 10^3/uL (0.0-0.8) 01/20/25 18:18 Baso # (Auto) 0.1 10^3/uL (0.0-0.1) 01/20/25 18:18 Nucleated RBC % (auto) 0 % 01/20/25 18:18 Nucleated RBCs # 0.0 /100WBC 01/20/25 18:18 Sodium 133 mmol/L (136-145) L 01/20/25 18:18 Potassium 3.5 mmol/L (3.5-5.1) 01/20/25 18:18 Chloride 98 mmol/L (98-107) 01/20/25 18:18 Carbon Dioxide 16 mmol/L (22-29) L 01/20/25 18:18 Anion Gap 22.5 (5-19) H 01/20/25 18:18 BUN 9 mg/dL (6-20) 01/20/25 18:18 Creatinine 1.1 mg/dL (0.7-1.2) 01/20/25 18:18 GFR Calculation 70.0 mL/min (90-130) L 01/20/25 18:18 Glucose 134 mg/dL (65-115) H 01/20/25 18:18 Calculated Osmolality 277 mOsm/kg (285-295) L 01/20/25 18:18 Calcium 9.1 mg/dL (8.5-10.5) 01/20/25 18:18 Total Bilirubin 1.2 mg/dL (0.15-1.2) 01/20/25 18:18 AST 16 U/L (0-40) 01/20/25 18:18 ALT 10 U/L (0-41) 01/20/25 18:18 Alkaline Phosphatase 82 U/L (40-130) 01/20/25 18:18 Total Protein 7.8 g/dL (6.6-8.7) 01/20/25 18:18 Albumin 4.1 g/dL (3.5-5.2) 01/20/25 18:18 Globulin 3.7 g/dL (1.3-4.6) 01/20/25 18:18 Lipase 17 U/L (13-60) 01/20/25 18:18 Urine Color Yellow (Yellow) 01/20/25 19:25 Urine Appearance Clear (CLEAR) 01/20/25 19:25 Urine pH 6.5 (5-7) 01/20/25 19:25 Ur Specific [place] 1.095 (1.005-1.030) H 01/20/25 19:25 Urine Protein 1+ (Negative) A 01/20/25: Urine Glucose (UA) Negative (Normal) 01/20/25: Urine Ketones Trace (Negative) 01/20/25: Urine Blood 2+ (Negative) A 01/20/25: Urine Nitrate Negative (Negative) 01/20/25 19: Urine Bilirubin Negative (Negative) 01/20/25: Urine Urobilinogen 1.0 mg/dL (Negative) 01/20/25 19:25 Ur Leukocyte Esterase Negative (Negative) 01/20/25 19:25 Urine RBC 6-10 /hpf (0-2) 01/20/25 19:25 Urine WBC 0-5 /hpf (0-5) 01/20/25 19:25 Ur Squamous Epith Cells 0-5 /hpf (0-5) 01/20/25 19:25 Amorphous Sediment Not Reportable 01/20/25 19:25 Urine Bacteria None seen /hpf (NONE) 01/20/25: Hyaline Casts 0-4 /lpf H 01/20/25 19:25 All radiology interpretation(s) finalized by discharge Discharge Plan Discharge Patient Disposition: Home Clinical Impression: Abdominal pain, Vomiting Condition: Stable Prescriptions: New metoclopramide HCl [Reglan] 10 mg tablet 10 mg PO Q6H PRN (Reason: nausea and vomiting) Qty: 20 0RF No Action sennosides-docusate sodium [Senokot-S] 8.6-50 mg Tablet 1 tab-cap PO DAILY PRN (Reason: Constipation) lisinopril 20 mg tablet 20 mg PO QAM pantoprazole 40 mg tablet,delayed release (DR/EC) 40 mg PO QAM Discharge Orders: Discharge ED (Routine); Ordered 01/20/25 Ordered By: Maria Isabel Padron Referrals: Inessa Coats DO [Primary Care Provider, Family Practice] - 4-7 days Discharge Diet: Advance as tolerated Discharge Activity: Resume usual activity Patient Instructions: Acute Nausea and Vomiting (ED), Abdominal Pain (ED) Print Language: Macedonian Coding Level of Care Code ED Nitroglycerin Nitrator Operator Batch for Janet Rubio
[2025-01-20 18:27] LABS: Hematocrit 49.3 % (37-53); Hemoglobin 16.00 g/dL (11.27-16.99); Mean Corpuscular HGB Conc 32.5 g/dL (30-55); Mean Corpuscular Hemoglobin 26.2 pg (27-33); Mean Corpuscular Volume 80.7 fl (82-101); Nucleated Red Blood Cells % 0 %; Platelet Count 189 10^3/cmm (157-399); Red Blood Count 6.11 10^6/uL (3.85-5.65); White Blood Count 10.91 10^3/uL (3.29-11.43)
[2025-01-20 18:42] LABS: Alanine Aminotransferase 10 U/L (0-41); Albumin Level 4.1 g/dL (3.5-5.2); Alkaline Phosphatase 82 U/L (40-130); Anion Gap 22.5 (5-19); Aspartate Amino Transferase 16 U/L (0-40); Blood Urea Nitrogen 9 mg/dL (6-20); Calcium 9.1 mg/dL (8.5-10.5); Carbon Dioxide 16 mmol/L (22-29); Chloride 98 mmol/L (98-107); Creatinine Clr Calc Pharmacy 89.4905; Globulin 3.7 g/dL (1.3-4.6); Glucose 134 mg/dL (65-115); Lipase 17 U/L (13-60); Osmolality Calculated 277 mOsm/kg (285-295); Potassium 3.5 mmol/L (3.5-5.1); Sodium 133 mmol/L (136-145); Total Protein 7.8 g/dL (6.6-8.7)
[2025-01-20 18:47] VITALS: BP 151/86; PULSE 87; O2SAT 96
[2025-01-20] MEDS: iohexol 350 mg/mL 500 mL Btl (per mL) IV (18:49)
[2025-01-20] MEDS: diphenhydrAMINE 50 mg/mL SDV 1mL IVP (19:13)
[2025-01-20] MEDS: metoclopramide 5 mg/mL SDV 2 mL 10 MG IVP (19:13)
[2025-01-20 19:19] VITALS: BP 119/82; PULSE 79; RESP 18; O2SAT 95
[2025-01-20 19:41] LABS: Glucose Urine UA Negative (Normal); Nitrate Urine Negative (Negative)
[2025-01-20 19:46] LABS: Add Urine Microscopic? YES
[2025-01-20 19:48] LABS: Specific Gravity, Urine 1.095 (1.005-1.030); UA Slide Review UA Slide Review Perf
[2025-01-20 20:33] VITALS: BP 130/80; PULSE 67; RESP 14; O2SAT 97
== END 2025-01-20 20:37 | disposition home or self-care (01) ==
PROVIDERS: Emergency Provider Emergency Medicine; PCP Family Medicine
DX: R10.9 Unspecified abdominal pain (principal); R11.10 Vomiting, unspecified; Z72.0 Tobacco use
CPT/HCPCS: 36415; 74177; 80053; 81001; 83690; 85025; 96361; 96374; 96375; 99285; J1200; J1885; J2765; J7030

== ENCOUNTER 2025-01-22 11:58 | Emergency (ER) | payer OTHER, SELFPAY ==
--- OUTSIDE RECORDS SUMMARY | 2025-01-15 15:00 | XMS_ITS | Encounter Summary ---
Author Organization [facility] Address [address] [place] [address] Care Team Providers Care Software Quality Assurance Analyst Name Role Phone Unavailable Primary Care Provider Unavailabl e Reason for Referral * Outpatient Services (Routine) - Closed Specialty Diagnoses / Procedures Referred By Papa reed Referred To Contact Perioperative Diagnoses Lower abdominal pain History of colon resection Procedures ENDOSCOPY, COLON, DIAGNOSTIC MD COLONOSCOPY FLX DX W/COLLJ SPEC WHEN PFRMD MD COLONOSCOPY W/BIOPSY SINGLE/MULTIPLE MD COLSC FLX WITH DIRECTED SUBMUCOSAL NJX ANY SBST MD COLSC FLX W/RMVL OF TUMOR POLYP LESION SNARE TQ Marilyn Chris FNP [address] [facility] [address] [place] [address] Phone: tel: fax: [facility] [address] [facility] [address] [place] [address] Phone: tel: fax: Referral ID Status Reason Start Date Expiration Date Visits Re quested Visits Authorized [id number] Closed 01/15/2025 02/15/2026 1 1 * Outpatient Services (Routine) - Closed Specialty Diagnoses / Procedures Referred By Contact Referred To Contact Perioperative Diagnoses RUQ abdominal pain Gastroesophageal reflux disease, unspecified whether esophagitis present Procedures EGD MD ESOPHAGOGASTRODUODENOSCOPY TRANSORAL DIAGNOSTIC MD EGD TRANSORAL BIOPSY SINGLE/MULTIPLE MD EGD BALLOON DILATION ESOPHAGUS <30 MM DIAM MD DILATION ESOPH UNGUIDED SOUND/BOUGIE 1/MULT PASS Marilyn Chris FNP [address] [facility] [address] [place] [address] Phone: tel:[phone] fax:[phone] [facility] [address] [place] [address] Phone: tel: fax: Referral ID Status Reason Start Date Expiration Date Visits Re quested Visits Authorized [id number] Closed 01/15/2025 02/15/2026 1 1 * CT Scan (Urgent) - Closed Specialty Diagnoses / Procedures Referred By Papa reed Referred To Contact Radiology Diagnoses Lower abdominal pain Procedures CT ABDOMEN PELVIS W CONTRAST Marilyn Chris FNP [address] [facility] [address] [place] [address] Phone: tel: fax: [facility] CT Scan [place] [address] [place] [address] Phone: tel: fax: Referral ID Status Reason Start Date Expiration Date Visits Re quested Visits Authorized [id number] Closed 01/15/2025 02/15/2026 1 1 Reason for Visit * Reason Comments Establish Care * Eval and Treat (Routine) - Closed Specialty Diagnoses / Procedures Referred By Papa rede Referred To Contact Gastroenterology Diagnoses Gastroesophageal reflux disease without esophagitis Diverticulitis of intestine with perforation and abscess without bleeding, unspecified part of intestinal tract Procedures MD OFFICE/OUTPATIENT ESTABLISHED MOD MDM 30 MIN MD OFFICE/OUTPATIENT NEW MODERATE MDM 45 MINUTES new request Inessa Coats, DO [address] [place] [address] Phone: tel: fax: [facility] [place] [address] Phone: tel: fax: Referral ID Status Reason Start Date Expiration Date Visits Requested Visits Authorized [id number] Closed Performing Department to Schedule 12/15/2024 12/15/2025 1 1 Encounter Details Date Type Department Care Team (Late st Contact Info) Description 01/15/2025 3:00 PM CDT [facility] [place] [address] Marilyn Chris FNP [address] [facility] [address] [place] [address] RUQ abdominal pain (Primary Dx); Lower abdominal pain; Gastroesophageal reflux disease, unspecified whether esophagitis present; History of colon resection Social History Tobacco Use Types Packs/Day Years Used Date Smoking Tobacco: Every Day Cigarettes Smokeless Tobacco: Never Alcohol Use Standard Drinks/Week Comments Not Currently 0 (1 standard drink = 0.6 oz pur e alcohol) Sex and Gender Information Value Date Recorded Sex Assigned at Not on file 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 Gender Identity Not on file Sexual Orientation Not on file documented as of this encounter Last Filed Vital Signs Vital Sign Reading Time Taken Comments Blood Pressure - - Pulse - - Temperature - - Respiratory Rate - - Oxygen Saturation - - Inhaled Oxygen Concentration - - Weight 90.7 kg (200 lb) 01/15/2025 2:46 PM CDT Height 180.3 cm (5' 11 ) 01/15/2025 2:46 PM CDT Body Mass Index 27.89 01/15/2025 2:46 PM CDT documented in this encounter Progress Notes * Marilyn Chris FNP - 01/15/2025 3:36 PM CDT Patient's identity confirmed yes Patient gave verbal consent to have these services billed to their insurance and expressed understanding that co-insurance and deductible may apply: yes Patient was located at home. This encounter was completed via two-way synchronous audio and video communication. GI Clinic Video Visit Note Arlin Worley [facility] [id number] 01/15/2025 Collaborative physician: Ruy Gray MD Referring Provider: No primary care provider on file. History of Present Illness 54 yo male patient presents via virtual visit for right-sided abdominal pain, heartburn, and abnormal bowel movements. He reports sharp, stabbing pains on the right side of his abdomen below the rib cage, present sincehis colon resection surgery. Bowel movements have been irregular since the surgery, sometimes occurring twice a day or not at all for 2 to 3 days. Stool softeners are used in the morning. Occasionally, blood is noticed in the stool, particularly with excessive wiping. Dark stools have been observed, but iron supplements were discontinued a year ago due to nausea. His has observed a yellowish tint to his skin. He does not consume alcohol regularly, with hislast drink 2 years ago. Severe heartburn occurs if pantoprazole is not taken, which he finds effective. He has never undergone an upper endoscopy but had an upper GI series with barium at 19. No difficulty swallowing or food getting stuck is reported. He is a tobacco user. Lower abdominal pain has been experienced a few times but is not common. No recent weight loss has been noted, although weight loss has occurred in the past. No recent lab tests have been conducted. Past CT scans with contrast revealed a ruptured colon. An abscess was detected at the site of his incision where a foot of the colon was removed, but Dr. French suggested it might be fat deposits as his labs were normal. His last consultation with Dr. French was 1.5 to 2 years ago. He has an upcoming appointment with his family doctor next . PAST SURGICAL HISTORY: Colon resection Gallbladder removal SOCIAL HISTORY Alcohol: Last drink 2 years ago, previously only on birthdays. PAST MEDICAL HISTORY: Past Medical History: Diagnosis Date Anesthesia complication increase HR with gallbladder surgery Hyperlipidemia Hypertension Rib fractures REVIEW OF SYSTEMS: Complete ROS was negative aside from what was noted above. DIAGNOSTICS: Exam: CT ABDOMEN PELVIS W CONTRAST Date/Time of Exam: 07/06/2021 11:27 AM Reason For Exam: Diverticulitis suspected Diagnosis: Abdominal pain, unspecified abdominal location Technique: CT of the abdomen and pelvis was performed following the administration of intravenous contrast. Contrast: IOPAMIDOL 61 % INTRAVENOUS SOLUTION (SINGLE USE VIAL) Given:100 mL, IOHEXOL 300 MG IODINE/ML INTRAVENOUS SOLUTION (SINGLE USE VIAL) Given:30 mL WITH ORAL CONTRAST. Findings: Comparison: None. Abdomen/Pelvis: Lower thorax demonstrates no acute findings. There is linear scarring or atelectasis of the right middle lobe. No concerning hepatic lesions. The portal venous system is well-opacified. The gallbladder is surgically absent. No biliary duct dilatation. The pancreas, spleen, adrenal glands unremarkable. The bilateral kidneys are normal in size. No concerning renal lesions. There is no hydronephrosis or radiopaque nephroureterolithiasis. Urinary bladder is unremarkable. Prostate and seminal vesicles are unremarkable. Abdominal aorta and IVC unremarkable. No pathologically enlarged lymph nodes. The stomach, duodenal sweep, small and large bowel loops are normal in caliber. The appendix appears normal. There is distal colonic diverticulosis with active severe diverticulitis involving the proximal sigmoid colon. There is extensive pericolonic stranding and some trace fluid within the mesenteric folds as well as extraluminal gas extending into the central mesentery consistent with colonic perforation. No generalized pneumoperitoneum identified. No highly organized fluid collection identified to suggest abscess. There is some mural thickening of the inflamed colon measuring up to 8 mm fat-containing umbilical and left inguinal hernias without incarceration change. There is subacute left posterior 10th, ninth, eighth rib fractures with callus formation.. There is chronic moderate compression deformity at the superior endplate of T12. IMPRESSION: 1. Severe diverticulitis involving the proximal sigmoid colon complicated by contained perforation with extraluminal gas coursing the central mesentery without generalized pneumoperitoneum. There is pericolonic stranding and fluid without a high degree of organization to suggest abscess though this patient is at risk for abscess formation. 2. No evidence of bowel obstruction. 3. Chronic appearing moderate compression deformity superior endplate of T12. 4. Subacute left posterior 10th, 9th and 8th rib fractures with callus formation. DIAGNOSES: Diagnoses and all orders for this visit: RUQ abdominal pain - EGD; Future Lower abdominal pain - CT ABDOMEN PELVIS W CONTRAST; Future - ENDOSCOPY, COLON, DIAGNOSTIC; Future Gastroesophageal reflux disease, unspecified whether esophagitis present - EGD; Future History of colon resection - ENDOSCOPY, COLON, DIAGNOSTIC; Future Assessment & Plan Right-sided abdominal pain: - Order upper endoscopy and colonoscopy. - Obtain updated labs. Patient requests these to be done at PCP next week. - Conduct imaging within the next week. - Communicate imaging results promptly. Abnormal bowel movements: - Irregular bowel movements since colon resection surgery. - Takes stool softeners in the mornings. Recommend fiber supplementation. - No blood in stool unless excessive wiping. - Obtain updated labs. Heartburn: - Pantoprazole effectively controls heartburn. - Continue pantoprazole. -EGD to evaluate for any changes to the esophagus, stomach, or small intestine. -Higher risk for Leal's esophagus. Follow-up: 3 months. Discussed alarm signs and symptoms that would indicate need for sooner follow up, such as new onsetor worsening dysphagia, evidence of bloody vomit or stool, weight loss, or changes in bowel habits. The patient indicates understanding of these issues and agrees with the plan. TOBACCO COUNSELING He was counseled to discontinue tobacco/nicotine use. This note has been partially dictated using voice recognition software. Every effort has been made to ensure accuracy. Patient provided verbal consent for the use of [employer] to assist in documentation of today's visit. Plan of care discussed and developed in collaboration with Ruy Gray MD Danielle R Jones, FNP documented in this encounter Plan of Treatment Upcoming Encounters Date Type Department Care Team (Latest Contact Info) Description 02/02/2025 2:00 PM CDT Hospital Encounter [facility] [address] [place] [address] Kishan Huerta MD [address] [facility] [place] [address] 02/02/2025 2:00 PM CDT - 02/02/2025 2:20 PM CDT Surgery [facility] [address] [place] [address] Kishan Huerta MD [address] [place] [address] ESOPHAGOGASTRODUODENOSCOPY Scheduled Orders Name Type Priority Associated Diagnoses Orde r Schedule EGD GI Routine RUQ abdominal pain Gastroesophageal reflux disease, unspecified whether esophagitis present Expected: 01/15/2025 (Approximate), Expires: 03/18/2025 ENDOSCOPY, COLON, DIAGNOSTIC GI Routine Lower abdominal pain History of colon resection Expected: 01/15/2025 (Approximate), Expires: 03/18/2025 Scheduled Procedures Name Priority Associated Diagnoses Date/Ti me ESOPHAGOGASTRODUODENOSCOPY RUQ abdominal pain Gastroesophageal reflux disease, unspecified whether esophagitis present Lower abdominal pain History of colon resection 02/02/2025 2:00 PM CDT COLONOSCOPY RUQ abdominal pain Gastroesophageal reflux disease, unspecified whether esophagitis present Lower abdominal pain History of colon resection 02/02/2025 2:00 PM CDT documented as of this encounter Goals Goal Patient Goal Type Associated Problems Recent Progress Patient-Stated? Author Autogenerat ed Goal Care Plan Autogenerated Problem No Stephany Ann documented as of this encounter Results * CT ABDOMEN PELVIS W CONTRAST (01/16/2025 11:43 AM CDT) Anatomical Region Laterality Modality Abdomen Computed Tomogra phy 01/16/2025 11:2 1 AM CDT Impressions 01/16/2025 12:12 PM CDT IMPRESSION: No acute abnormalities in the abdomen or pelvis. Narrative 01/16/2025 12:12 PM CDT Exam: CT ABDOMEN PELVIS W CONTRAST Date/Time of Exam: 01/16/2025 11:43 AM Reason For Exam: LLQ abdominal pain, right upper quadrant pain. Contiguous axial images were obtained through the abdomen and pelvis. Sagittal and coronal reformatted images are included. 100 mL of Isovue-300 was given intravenously. The appendix is visualized and is unremarkable in appearance. There is no evidence of any abdominal aortic aneurysm or dissection. There is no evidence of any ureteral stones or any dilatation of the ureters or collecting systems. The liver, spleen, pancreas, kidneys and adrenals are unremarkable. There is no evidence of abnormal soft tissue masses, abnormal fluid collections or adenopathy in the abdomen or pelvis. Bowel loops are nondilated. There is no evidence of any free intraperitoneal air. Procedure Note Rohit Alonzo MD - 01/16/2025 Exam: CT ABDOMEN PELVIS W CONTRAST Date/Time of Exam: 01/16/2025 11:43 AM Reason For Exam: LLQ abdominal pain, right upper quadrant pain. Contiguous axial images were obtained through the abdomen and pelvis. Sagittal and coronal reformatted images are included. 100 mL of Isovue-300 was given intravenously. The appendix is visualized and is unremarkable in appearance. There is no evidence of any abdominal aortic aneurysm or dissection. There is no evidence of any ureteral stones or any dilatation of the ureters or collecting systems. The liver, spleen, pancreas, kidneys and adrenals are unremarkable. There is no evidence of abnormal soft tissue masses, abnormal fluid collections or adenopathy in the abdomen or pelvis. Bowel loops are nondilated. There is no evidence of any free intraperitoneal air. IMPRESSION: No acute abnormalities in the abdomen or pelvis. us Marilyn Chris FOUNDATION RELATIONS DIRECTOR CT ORDERABLES Final Res ult documented in this encounter Visit Diagnoses Diagnosis RUQ abdominal pain- Primary Abdominal pain, right upper quadrant Lower abdominal pain Abdominal pain, other specified site Gastroesophageal reflux disease, unspecified whether esophagitis present History of colon resection Other postprocedural status Lower abdominal pain Abdominal pain, other specified site documented in this encounter Additional Health Concerns Active Problems Noted Date Diagnosed Date Autogenerated Problem 01/15/2025 documented as of this encounter
--- OUTSIDE RECORDS SUMMARY | 2025-01-16 10:53 | XMS_ITS | Encounter Summary ---
Author Organization [employer] [facility] Address [address] [place] [address] Care Team Providers Care Automobile Travel Club Counselor Name Role Phone Unavailable Primary Care Provider Unavailabl e Reason for Referral * CT Scan (Urgent) - Closed Specialty Diagnoses / Procedures Referred By Seniaac t Referred To Contact Radiology Diagnoses Lower abdominal pain Procedures CT ABDOMEN PELVIS W CONTRAST Marilyn Chris FNP [address] [address] Phone: tel: fax: [facility] Scan [place] [address] [place] [address] Phone: tel: fax: Referral ID Status Reason Start Date Expiration Date Visits Re quested Visits Authorized [id number] Closed 01/15/2025 02/15/2026 1 1 Reason for Visit * CT Scan (Urgent) - Closed Specialty Diagnoses / Procedures Referred By Contac t Referred To Contact Radiology Diagnoses Lower abdominal pain Procedures CT ABDOMEN PELVIS W CONTRAST Marilyn Chris FNP [address] [address] Phone: tel: fax[facility] [place] [address] [place] [address] Phone: tel: fax: Referral ID Status Reason Start Date Expiration Date Visits Re quested Visits Authorized [id number] Closed 01/15/2025 02/15/2026 1 1 Encounter Details Date Type Department Care Team (Latest Contact Info) Description 01/16/2025 10:53 AM CDT - 01/16/2025 11:59 PM CDT Hospital Encounter [facility] [place] [address] [place] [address] Marilyn Chris, ASSEMBLY LOADER [address] [facility] [address] [place] [address] Discharge Disposition: Home or Self Care Social History Tobacco Use Types Packs/Day Years Used Date Smoking Tobacco: Every Day Cigarettes Smokeless Tobacco: Never Alcohol Use Standard Drinks/Week Comments Not Currently 0 (1 standard drink = 0.6 oz pur e alcohol) Sex and Gender Information Value Date Recorded Sex Assigned at Not on file 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 3 Tablet 12/27/2022 PEG-Electrolyte Soln (NULYTELY) 420 g Recon Soln Take 4,000 mL by mouth one time only for 1 dose. 4000 mL 01/19/2025 01/19/2025 documented as of this encounter Plan of Treatment Upcoming Encounters Date Type Department Care Team (Latest Contact Info) Description 02/02/2025 2:00 PM CDT Hospital Encounter [facility] [place] [address] [place] [address] Kishan Huerta MD [address] [place] [address] 02/02/2025 2:00 PM CDT - 02/02/2025 2:20 PM CDT Surgery [facility] [place] [address] [place] [address] Kishan Huerta MD [address] [place] [address] ESOPHAGOGASTRODUODENOSCOPY Scheduled Procedures Name Priority [...] the abdomen or pelvis. us Marilyn Chris [facility] CT ORDERABLES Final Res ult * CREATININE (01/16/2025 11:00 AM CDT) CREATININE 1.16 0.67 - 1.17 mg/dL 01/16/2025 11:24 AM CDT [facility] GFR >60 >=60 mL/min/1.7 3 sq meter 01/16/2025 11:24 AM CDT [facility] Comment:eGFR calculated with 2020 CKD-EPI equation. Vegetarian diet, extremely high or low muscle mass, and may affect results. Cystatin C with Glomerular Filtration Rate is a suitable alternative for these patients. Blood Venipuncture / Unknown 01/16/2025 11:00 AM CDT 01/16/2025 11:06 AM CDT us Marilyn Chris ASSEMBLY LOADER CHEMISTRY ORDERABLES Carrie cordero Result [facility] CLIA # [id number] [address] [place] [address] documented in this encounter Visit Diagnoses Diagnosis Lower abdominal pain Abdominal pain, other specified site documented in this encounter Administered Medications Inactive Administered Medications - up to 3 most recent administrations Medication Order MAR Action Action Date Dose Rate Site iopamidoL (ISOVUE-300) 61% injection (single-use vial) 100 mL 100 mL, IV, INTRA-PROCEDURE ONCE, 1 dose, Starting on Sun01/16/25 at 1136, Until 01/16/25 at 1138, Routine Contrast Given 01/16/2025 11:38 AM CDT 100 mL sodium chloride bacteriostatic 0.9 % injection 10 mL 10 mL, IV, SEE ADMIN INSTRUCTIONS, Starting on 01/16/25 at 1137, Until 01/17/25 at 0239, Routine Given 01/16/2025 11:40 AM CDT 10 mL documented in this encounter Additional Health Concerns Active Problems Noted Date Diagnosed Date Autogenerated Problem 01/15/2025 documented as of this encounter
[2025-01-22 12:01] VITALS: BP 143/100; PULSE 98; RESP 17; TEMP 37.3; O2SAT 98; BMI 27.3
--- OUTSIDE RECORDS SUMMARY | 2025-01-22 12:05 | XMS_ITS | Clinical Summary ---
Author Organization [facility] Address [address] [place] [address] Phone Care Team Providers Care Data Entry Supervisor Name Role Phone Unavailable Primary Care Provider [...] dose. 4000 mL 5 01/20/20 25 Active Problems Problem Noted Date Diagnosed Date History of diverticulitis 01/11/2023 Diverticulitis 06/22/2021 Encounters Date Type Department Care Team Description 01/16/2025 10:53 AM CDT - 01/16/2025 11:59 PM CDT Hospital Encounter [place] [facility] [place] [address] [place] [phone] Marilyn Chris FNP Discharge Disposition: Home or Self Care 01/16/2025 Results Follow-Up [facility] Gastroenterology[address] [place] [phone] ABDOMEN PELVIS W CONTRAST 01/15/2025 3:00 PM CDT Video Visit [address] [place] [phone] Marilyn Chris FNP RUQ abdominal pain (Primary Dx); Lower abdominal pain; Gastroesophageal reflux disease, unspecified whether esophagitis present; History of colon resection 12/15/2024 Orders Only [facility] Gastroenterology[address] [place] [phone] Inessa Coats DO Gastroesophageal reflux disease without [...] on file Legal Sex Male 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 Gender Identity Not on file Sexual Orientation Not on file Last Filed Vital Signs Vital Sign Reading Time Taken Comments Blood Pressure 150/108 12/03/2023 2:41 PM CDT Pulse 91 07/11/2023 2:05 PM CATTERY OPERATOR Temperature 36.6 C (97.8 F) 07/11/2023 2:05 PM CATTERY OPERATOR Respiratory Rate 16 01/06/2023 3:30 PM CDT Oxygen Saturation 96% 07/11/2023 2:05 PM CATTERY OPERATOR Inhaled Oxygen Concentration - - Weight 90.7 kg (200 lb) 01/15/2025 2:46 PM CDT Height 180.3 cm (5' 11 ) 01/15/2025 2:46 PM CDT Body Mass Index 27.89 01/15/2025 2:46 PM CDT Plan of Treatment Upcoming Encounters Date Type Department Care Team (Latest Contact Info) Description 02/02/2025 2:00 PM CDT Hospital Encounter [facility] [place] [address] [place] [address] [place] [phone] Kishan Huerta MD [address] [place] [phone] 02/02/2025 2:00 PM CDT - 02/02/2025 2:20 PM CDT Surgery [facility] End[facility] [place] [address] [phone] Kishan Huerta MD [address] [place] [phone] ESOPHAGOGASTRODUODENOSCOPY Scheduled Procedures Name Priority Associated [...] 10/17/2016 ZOSTER VACCINE (1 of 2) 10/17/2021 INFLUENZA VACCINE (#1) 2025 DTAP/TDAP/TD VACCINES (2 - Td or Tdap) 05/25/2031 COLORECTAL SCREENING 01/15/2035 01/15/2025 Colorectal Cancer Screening 01/15/2035 Abdominal Aortic Aneurysm (AAA) Screening Completed 03/21/2014 Goals Goal Patient Goal Type Associated Problems Recent Progress Patient-Stated? Author Autogenerat ed Goal Care Plan Autogenerated Problem No Stephany Ann Procedures Procedure Name Priority Date/Time Associated Diagnosis [...] in the abdomen or pelvis. Marilyn Chris [facility] CT ORDERABLES Final Res ult * [...] CDT 01/16/2025 11:06 AM CDT Marilyn Chris [facility] CHEMISTRY ORDERABLES Carrie cordero Result [facility] CLIA # [id number] [address] [place] [id number] from Last 3 Months Additional Health Concerns Active Problems Noted Date Diagnosed Date Autogenerated Problem 01/15/2025 Insurance YesGraph [facility] [id number] Advance Directives For more information, please contact: [phone] * Full Code (Latest Code Status on [...]
--- OUTSIDE RECORDS SUMMARY | 2025-01-22 12:05 | XMS_ITS | Encounter Summary ---
Author Organization [facility] Address 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 documented in this encounter Plan of Treatment Upcoming Encounters Date Type Department Care Team (Latest Contact Info) Description 02/02/2025 2:00 PM CDT Hospital Encounter [facility] [place] [address] [facility] [place] [address] [place] [phone] Kishan Huerta MD [address] [facility] [address] [place] [phone] 02/02/2025 2:00 PM CDT - 02/02/2025 2:20 PM CDT Surgery [facility] [place] [address] [facility] [place] [address] [place] [phone] Kishan Huerta MD [address] [facility] [address] [place] [phone] ESOPHAGOGASTRODUODENOSCOPY Scheduled Procedures Name Priority [...]
--- NOTE | 2025-01-22 12:57 | XR_ITS ---
WS: [id number] Acute abdomen series, AP portable erect chest, AP supine and erect abdomen, 01/22/2025 Clinical Data: Abdominal pain Comparison: Portable chest, 10/06/2024 Findings: In the chest there are no nodules, masses or effusions. The heart is normal. The pulmonary vascularity is not increased. No free air is seen beneath the diaphragms. No abnormal intra-abdominal masses or calcifications are seen. There is air in the stomach and the colon. No definite obstruction is seen. There is vertebroplasty cement in T12. There are vascular calcifications. XR/XR acute abdomen series 40[address] Impression: 1. No acute cardiopulmonary disease. 2. Moderate colonic ileus.
[2025-01-22 13:13] LABS: Glucose Urine UA Negative (Normal); Nitrate Urine Negative (Negative)
--- NOTE | 2025-01-22 13:17 | W.ED.ABDPA2 ---
HPI - Abdominal Pain General: Chief Complaint: Abdominal Pain Stated Complaint: rt side abd pain (sent by bernard) Time Seen by Provider: 01/22/25 12:55 History of Present Illness: 54-year-old male who presents to the ED with complaint of worsening abdominal pain and intermittent fevers over the last 2 days. Patient was seen here 3 days ago and again 2 days ago and had a CT scan performed. He states that this morning he went to his PCP, Dr. Coats, to follow-up on his visits. After performing an exam on him, he states that she was concerned that he may have a kidney stone and instructed him to return to the emergency department to be evaluated again. He states that he had a fever about 101F at Dr. Coats's office this morning and his temperature was 104 F last night. He states that his pain has moved to his right mid back and feels worse. He also reports that he has decreased urine output since yesterday but denies any dysuria. It was also found on labs in the ED 3 days ago that he had microscopic blood in his urine as well. Denies any nausea, vomiting, or bowel changes. No other complaints at this time. Associated Symptoms: Reports chills and fever(s); Denies change in bowel habits, dysuria, nausea and vomiting Related Data Home Medications ?Medication ?Instructions ?Recorded ?Confirmed pantoprazole 40 mg tablet,delayed 40 mg PO QAM 01/19/25 01/22/25 release sennosides 8.6 mg-docusate sodium 1 tab-cap PO DAILY PRN Constipation 01/19/25 01/22/25 50 mg tablet (Senokot-S) Previous Rx's ?Medication ?Instructions ?Recorded metoclopramide HCl 10 mg tablet 10 mg PO Q6H PRN nausea and 01/20/25 (Reglan) vomiting #20 tabs hydrocodone 5 mg-acetaminophen 325 1 tab PO Q6H PRN pain #10 tabs 01/22/25 mg tablet levofloxacin 750 mg tablet 750 mg PO DAILY 7 days #7 tabs 01/22/25 lisinopril 20 mg tablet 20 mg PO QAM #90 tabs 01/22/25 Allergies Allergy/AdvReac Type Severity Reaction Status Date / Time atorvastatin (From Lipitor) Allergy ADR-Vomitin Verified 01/22/25 11:13 g morphine Allergy ALGY-Fever Verified 01/22/25 11:13 Review of Systems Const: Reports: fever(s) and chills Card: Denies: chest pain or palpitations Resp: Denies: dyspnea GI: Reports: abdominal pain; Denies: nausea, vomiting or change in bowel habits : Reports: flank pain and difficulty urinating; Denies: dysuria Neuro: Denies: headache(s) PFSH ED PFSH: Medical History Diverticulitis Fracture of T12 vertebra Surgical History History of colon resection Status post colonoscopy (01/25/22) History of cholecystectomy History of spinal surgery Family History Grandmother Diabetes Grandfather Cancer Sister Multiple sclerosis Father Degeneration of spine Social History Smoking and tobacco/nicotine status: current every day tobacco/nicotine user Quit status (tobacco/nicotine): not considering quitting Second hand smoke exposure: Yes Alcohol intake: former Substance/Drug Use: never Physical Exam Const: COMMON NORMALS: no acute distress, patient oriented x3 and well nourished HENMT: COMMON NORMALS: normocephalic HEAD & SCALP: normocephalic Resp: COMMON NORMALS: normal respiratory effort and clear to auscultation bilaterally AUSCULTATION: clear to auscultation bilaterally Cardio: COMMON NORMALS: regular rate and regular rhythm RATE: regular rate RHYTHM: regular rhythm GI: COMMON NORMALS: Normal to inspection, nondistended, normoactive bowel sounds present and Soft to palpation PALPATION: Yes Soft to palpation, Yes Tenderness to palpation present (GI) (Suprapubic) and No Guarding due to palpation present (GI) : BLADDER/KIDNEY EXAM: Yes CVA tenderness (Right) Back/Pelvis: GENERAL BACK: Yes CVA tenderness (Right) Neuro: COMMON NORMALS: patient oriented x3 Course Vital Signs: Vital signs: Vital Signs Temperature 99.2 F 01/22/25 12:01 Pulse Rate 98 01/22/25 14:38 Respiratory Rate 17 01/22/25 12:01 Blood Pressure 136/96 01/22/25 14:38 Pulse Oximetry 96 01/22/25 14:38 Oxygen Delivery Me thod Room Air 01/22/25 13:34 MDM - Abdominal Pain Medical Decision Making Patient's had multiple CTs in the last year now which showed kidney stones but none today on the CT without contrast he does still mild hematuria he is not really having flank pain reminiscent of a kidney stone at this time he does have a left lower lobe pneumonia that has worsened slightly since he was seen 2 days ago. Will treat with Levaquin 750 mg p.o. daily hydrocodone as needed for pain follow-up with his primary care doctor reviewed the other findings with him today. Medical Records I reviewed the patient's medical records. Lab Data I reviewed the patient's lab results. 01/22/25 13:32 01/22/25 13:32 Labs/Radiology: Radiology Impressions Chest/Abdomen X-ray 01/22/25 12:57 Impression: 1. No acute cardiopulmonary disease. 2. Moderate colonic ileus. Abdomen/Pelvis CT 01/22/25 13:39 IMPRESSION: 1. LEFT lower lobe pneumonia. Pneumonia in the medial paravertebral LEFT lower lung. Pneumonia has progressed since 01/20/2025. 2. No renal obstruction or calcifications. 3. Very subtle short segment stricture and a small intussusception in the RIGHT colon. Neither of these findings were present on 01/20/2025. Suspect these are probably transient. If colonoscopy is not performed consider at least short-term follow-up CT abdomen and pelvis with IV and oral contrast. 6 to 8-week follow-up recommended. 4. Stable rectosigmoid anastomosis. 5. Small umbilical hernia and small fat-containing LEFT inguinal hernia. Laboratory Results WBC 8.24 10^3/uL (3.29-11.43) 01/22/25 13:32 RBC 6.03 10^6/uL (3.85-5.65) H 01/22/25 13:32 Hgb 16.30 g/dL (11.27-16.99) 01/22/25 13:32 Hct 47.5 % (37-53) 01/22/25 13:32 MCV 78.8 fl (82-101) L 01/22/25 13:32 MCH 27.0 pg (27-33) 01/22/25 13:32 MCHC 34.3 g/dL (30-55) 01/22/25 13:32 RDW 13.6 % (12.1-15.1) 01/22/25 13:32 Plt Count 175 10^3/cmm (157-399) 01/22/25 13:32 MPV 11.3 fL (7.4-10.4) H 01/22/25 13:32 Neut % (Auto) 71.8 % 01/22/25 13:32 Lymph % (Auto) 13.6 % 01/22/25 13:32 [place] % (Auto) 12.6 % 01/22/25 13:32 Eos % (Auto) 1.1 % 01/22/25 13:32 Baso % (Auto) 0.8 % 01/22/25 13:32 Neut # (Auto) 5.91 10^3/uL (1.8-7.7) 01/22/25 13:32 Lymph # (Auto) 1.1 10^3/uL (0.8-4.8) 01/22/25 13:32 [place] # (Auto) 1.0 10^3/uL (0.2-0.9) H 01/22/25 13:32 Eos # (Auto) 0.1 10^3/uL (0.0-0.8) 01/22/25 13:32 Baso # (Auto) 0.1 10^3/uL (0.0-0.1) 01/22/25 13:32 Nucleated RBC % (auto) 0 % 01/22/25 13:32 Nucleated RBCs # 0.0 /100WBC 01/22/25 13:32 Sodium 133 mmol/L (136-145) L 01/22/25 13:32 Potassium 3.6 mmol/L (3.5-5.1) 01/22/25 13:32 Chloride 95 mmol/L (98-107) L 01/22/25 13:32 Carbon Dioxide 22 mmol/L (22-29) 01/22/25 13:32 Anion Gap 19.6 (5-19) H 01/22/25 13:32 BUN 12 mg/dL (6-20) 01/22/25 13:32 Creatinine 1.1 mg/dL (0.7-1.2) 01/22/25 13:32 GFR Calculation 70.0 mL/min (90-130) L 01/22/25 13:32 Glucose 105 mg/dL (65-115) 01/22/25 13:32 Calculated Osmolality 276 mOsm/kg (285-295) L 01/22/25 13:32 Calcium 9.2 mg/dL (8.5-10.5) 01/22/25 13:32 Total Bilirubin 0.6 mg/dL (0.15-1.2) 01/22/25 13:32 AST 27 U/L (0-40) 01/22/25 13:32 ALT 16 U/L (0-41) 01/22/25 13:32 Alkaline Phosphatase 87 U/L (40-130) 01/22/25 13:32 Total Protein 8.0 g/dL (6.6-8.7) 01/22/25 13:32 Albumin 4.1 g/dL (3.5-5.2) 01/22/25 13:32 Globulin 3.9 g/dL (1.3-4.6) 01/22/25 13:32 Lipase 25 U/L (13-60) 01/22/25 13:32 Urine Color Cancelled 01/22/25 12:56 Urine Color Dark yellow (Yellow) A 01/22/25 12:56 Urine Appearance Cancelled 01/22/25 12:56 Urine Appearance Clear (CLEAR) 01/22/25 12:56 Urine pH 5.5 (5-7) 01/22/25 12:56 Urine pH Cancelled 01/22/25 12:56 Ur Specific [place] 1.034 (1.005-1.030) H 01/22/25 12:56 Ur Specific [place] Cancelled 01/22/25 12:56 Urine Protein 2+ (Negative) A 01/22/25 12:56 Urine Protein Cancelled 01/22/25 12:56 Urine Glucose (UA) Cancelled 01/22/25 12:56 Urine Glucose (UA) Negative (Normal) 01/22/25 12:56 Urine Ketones Cancelled 01/22/25 12:56 Urine Ketones Trace (Negative) 01/22/25 12:56 Urine Blood 2+ (Negative) A 01/22/25 12:56 Urine Blood Cancelled 01/22/25 12:56 Urine Nitrate Cancelled 01/22/25 12:56 Urine Nitrate Negative (Negative) 01/22/25 12:56 Urine Bilirubin 1+ (Negative) H 01/22/25 12:56 Urine Bilirubin Cancelled 01/22/25 12:56 Prot Sulfosalicylic Acd Cancelled 01/22/25 12:56 Urine Urobilinogen 1.0 mg/dL (Negative) 01/22/25 12:56 Urine Urobilinogen Cancelled 01/22/25 12:56 Ur Leukocyte Esterase Cancelled 01/22/25 12:56 Ur Leukocyte Esterase Trace (Negative) A 01/22/25 12:56 Urine RBC 6-10 /hpf (0-2) 01/22/25 12:56 Urine RBC Cancelled 01/22/25 12:56 Urine WBC 0-5 /hpf (0-5) 01/22/25 12:56 Urine WBC Cancelled 01/22/25 12:56 Ur Squamous Epith Cells 6-10 /hpf (0-5) 01/22/25 12:56 Ur Squamous Epith Cells Cancelled 01/22/25 12:56 Ur Transition Epith Cell Cancelled 01/22/25 12:56 Ur Renal Epithelial Cell Cancelled 01/22/25 12:56 Calcium Oxalate Crystal Cancelled 01/22/25 12:56 Uric Acid Crystals Cancelled 01/22/25 12:56 Triple Phos Crystals Cancelled 01/22/25 12:56 Other Crystals Cancelled 01/22/25 12:56 Amorphous Sediment Cancelled 01/22/25 12:56 Amorphous Sediment Not Reportable 01/22/25 12:56 Urine Bacteria Cancelled 01/22/25 12:56 Urine Bacteria None seen /hpf (NONE) 01/22/25 12:56 Hyaline Casts 5.77 /lpf 01/22/25 12:56 Hyaline Casts Cancelled 01/22/25 12:56 Fine Granular Casts Cancelled 01/22/25 12:56 Coarse Granular Casts Cancelled 01/22/25 12:56 RBC Casts Cancelled 01/22/25 12:56 Other Casts Cancelled 01/22/25 12:56 Urine Mucus Cancelled 01/22/25 12:56 Urine Trichomonas Cancelled 01/22/25 12:56 Urine Yeast Cancelled 01/22/25 12:56 Urine Sperm Cancelled 01/22/25 12:56 Ur Oval Fat Bodies Cancelled 01/22/25 12:56 All radiology interpretation(s) finalized by discharge Discharge Plan Discharge Patient Disposition: Home Clinical Impression: Pneumonia Condition: Stable Prescriptions: New hydrocodone-acetaminophen 5-325 mg tablet 1 tab PO Q6H PRN (Reason: pain) Qty: 10 0RF levofloxacin 750 mg tablet 750 mg PO DAILY 7 Days Qty: 7 0RF No Action lisinopril 20 mg tablet 20 mg PO QAM Qty: 90 0RF sennosides-docusate sodium [Senokot-S] 8.6-50 mg Tablet 1 tab-cap PO DAILY PRN (Reason: Constipation) pantoprazole 40 mg tablet,delayed release (DR/EC) 40 mg PO QAM metoclopramide HCl [Reglan] 10 mg tablet 10 mg PO Q6H PRN (Reason: nausea and vomiting) Qty: 20 0RF Discharge Orders: Discharge ED (Routine); Ordered 01/22/25 Ordered By: Genaro Henry Referrals: Inessa Coats DO [Primary Care Provider, Family Practice] Discharge Diet: Usual diet Discharge Activity: Increase activity as tolerated Patient Instructions: Opioid Safety, Pain Management, Patient Portal & Art Instructions Activity Restrictions/Additional Instructions: Thank you for choosing [facility] for your healthcare needs today. It is very important that you follow up as instructed or that you return to the Emergency Department should you have concerns or if your condition changes or worsens in any way. You were seen in the emergency room emergency room with complaint of abdominal pain with slight cough. Your CT without contrast did not show any abnormalities other than the left lower lobe pneumonia that is slightly worsened from previous. There is no kidney stones. None of your previous 3 CTs in the last year have shown kidney stones. Recommend that you start on Levaquin 750 mg once daily for 7 days also gave you hydrocodone to use for pleuritic chest pain follow-up as needed Print Language: Serbian Coding Level of Care Code ED Bowling Alley Manager for Janet Rubio
[2025-01-22 13:34] VITALS: BP 142/97; PULSE 94; O2SAT 94
[2025-01-22 13:37] LABS: Specific Gravity, Urine 1.034 (1.005-1.030)
--- NOTE | 2025-01-22 13:39 | CT_ITS ---
WS: [id number] CT ABDOMEN AND PELVIS NONCONTRAST HISTORY: flank pain TECHNIQUE: Imaging performed through the abdomen and pelvis. Coronal and sagittal reformats are submitted. All CT scans at [facility] use at least one of these dose optimization techniques: automated exposure control; mA and/or kV adjustment per patient size (includes targeted exams where dose is matched to clinical indication); or iterative reconstruction. DLP: 637.03 mGy.cm COMPARISON: 01/20/2025, 10/06/2024 Lower thorax: Dense consolidation noted in the medial LEFT lower lobe. Opacification abuts the paravertebral soft tissues. Consistent with pneumonia which has progressed since 01/20/2025. Heart size is normal. Liver: Normal size liver. No mass or bile duct dilatation. Gallbladder: Prior cholecystectomy. Pancreas: Normal size and attenuation. Normal pancreatic duct. No pancreatitis or mass. Spleen: Normal. Adrenal glands: Normal. No mass. Right kidney: Normal size kidney with no mass or hydronephrosis. Left kidney: Normal size kidney with no mass or hydronephrosis. Aorta: Mild atherosclerosis abdominal aorta with no aneurysm. There are few small mesenteric lymph nodes which were also present on the prior study of 10/06/2024. No adenopathy. GI tract: Stomach is slightly distended with fluid. No small bowel obstruction. There is a very short segment mild stricture involving the hepatic flexure. Just proximal to the stricture is a short segment intussusception. There is no obstruction. There is increased fluid within the cecum and RIGHT colon. Anastomosis at the rectosigmoid junction is intact. No interval change. Abdominal wall: Small umbilical hernia contains fat only. Pelvis: Well-distended urinary bladder. No free fluid or adenopathy. Fat- containing LEFT inguinal hernia. Osseous structures: Prior vertebroplasty at T12. CT/CT kidney stone [id number] IMPRESSION: 1. LEFT lower lobe pneumonia. Pneumonia in the medial paravertebral LEFT lower lung. Pneumonia has progressed since 01/20/2025. 2. No renal obstruction or calcifications. 3. Very subtle short segment stricture and a small intussusception in the RIGH T colon. Neither of these findings were present on 01/20/2025. Suspect these are probably transient. If colonoscopy is not performed consider at least short-te follow-up CT abdomen and pelvis with IV and oral contrast. 6 to 8-week follo w-up recommended. 4. Stable rectosigmoid anastomosis. 5. Small umbilical hernia and small fat-containing LEFT inguinal hernia.
[2025-01-22 14:13] LABS: Hematocrit 47.5 % (37-53); Hemoglobin 16.30 g/dL (11.27-16.99); Mean Corpuscular HGB Conc 34.3 g/dL (30-55); Mean Corpuscular Hemoglobin 27.0 pg (27-33); Mean Corpuscular Volume 78.8 fl (82-101); Nucleated Red Blood Cells % 0 %; Platelet Count 175 10^3/cmm (157-399); Red Blood Count 6.03 10^6/uL (3.85-5.65); White Blood Count 8.24 10^3/uL (3.29-11.43)
[2025-01-22 14:16] LABS: Alanine Aminotransferase 16 U/L (0-41); Albumin Level 4.1 g/dL (3.5-5.2); Alkaline Phosphatase 87 U/L (40-130); Anion Gap 19.6 (5-19); Aspartate Amino Transferase 27 U/L (0-40); Blood Urea Nitrogen 12 mg/dL (6-20); Calcium 9.2 mg/dL (8.5-10.5); Carbon Dioxide 22 mmol/L (22-29); Chloride 95 mmol/L (98-107); Creatinine Clr Calc Pharmacy 88.6934; Globulin 3.9 g/dL (1.3-4.6); Glucose 105 mg/dL (65-115); Lipase 25 U/L (13-60); Osmolality Calculated 276 mOsm/kg (285-295); Potassium 3.6 mmol/L (3.5-5.1); Sodium 133 mmol/L (136-145); Total Protein 8.0 g/dL (6.6-8.7)
[2025-01-22 14:38] VITALS: BP 136/96; PULSE 98; O2SAT 96
== END 2025-01-22 14:40 | disposition home or self-care (01) ==
PROVIDERS: Emergency Medicine; Emergency Provider Family Medicine; PCP Family Medicine
DX: J18.9 Pneumonia, unspecified organism (principal); Z72.0 Tobacco use
CPT/HCPCS: 36415; 74022; 74176; 80053; 81001; 83690; 85025; 99284

== ENCOUNTER 2025-05-13 16:57 | Outpatient (CLI) | payer OTHER, SELFPAY ==
--- NOTE | 2025-05-13 17:15 | CT_ITS ---
WS: [id number] LDCT LUNG CANCER SCREENING HISTORY: screening TECHNIQUE: Axial imaging performed from the apices to 1 cm below the costophrenic angles. Coronal and sagittal reformats are submitted with axial MIP series. All CT scans at [facility] use at least one of these dose optimization techniques: automated exposure control; mA and/or kV adjustment per patient size (includes targeted exams where dose is matched to clinical indication); or iterative reconstruction. DLP: 72.09 mGy.cm DIvol: Mean CTDIvol: 1.60 (mGy) COMPARISON: Chest CT 05/26/2021 Diagnostic quality: Satisfactory Lungs: New noncalcified and well-circumscribed 9 mm nodule RIGHT upper lobe. 3 mm nodule LEFT lower lobe abuts the diaphragm. No endobronchial lesions. Heart: Normal size heart with no pericardial effusion.. Other findings: No mediastinal or hilar adenopathy. Mild atherosclerosis aorta. Normal size pulmonary artery. Normal adrenal glands. CT/CT lung screening [id number] IMPRESSION: LUNG-RADS: 4A-Probably Suspicious FOLLOW UP: 3 Month LDCT OTHER FINDINGS (S MODIFIER): None.
== END 2025-05-13 16:58 | disposition home or self-care (01) ==
LOC: RAD 16:58
PROVIDERS: PCP Family Medicine; Visit Provider Family Medicine
DX: Z12.2 Encounter for screening for malignant neoplasm of respiratory organs (principal); F17.219 Nicotine dependence, cigarettes, with unspecified nicotine-induced disorders; I70.0 Atherosclerosis of aorta; R91.1 Solitary pulmonary nodule
CPT/HCPCS: 71271